=== PATIENT | male | born 1935 | race Caucasian/White ===

== ENCOUNTER → 2017-11-27 11:52 | Outpatient (CLI) | payer MEDICARE, MEDICAID, SELFPAY ==
[2017-11-28 09:36] LABS: PSA, Diagnostic 0.5 ng/ml (0-6.5)
== END ==
PROVIDERS: Visit Provider Nurse Practitioner
DX: C61 Malignant neoplasm of prostate (principal)
CPT/HCPCS: 36415; 84153

== ENCOUNTER 2018-02-09 12:03 | Emergency (ER) | payer MEDICARE, MEDICAID, SELFPAY ==
[2018-02-09 12:12] VITALS: BP 142/82; PULSE 71; RESP 16; TEMP 37.1; O2SAT 96
[2018-02-09 12:26] VITALS: RESP 18
--- NOTE | 2018-02-09 12:35 | ED.GENADUL_ITS ---
Discharge Plan Disposition Patient Disposition: HOME Discharge Details Chief Complaint: GenMedical Clinical Impression: Headache, Chest pain Primary Care Provider: Viki Hamilton ED Provider: Jamil Vyas Home Meds and New Rx's Prescriptions: Continue carbidopa-levodopa [Sinemet CR] 1 EACH tablet extended release 1 tab-cap PO TID Qty: 90 RF: 5 aspirin 325 MG tablet 325 mg PO DAILY Qty: 90 RF: 3 pravastatin 20 MG tablet 20 mg PO DAILY Qty: 90 RF: 3 multivitamin with minerals 1 EACH tablet 1 ea PO DAILY Qty: 90 RF: 3 omeprazole 20 MG capsule,delayed release(DR/EC) 20 mg PO DAILY RF: 0 acetaminophen [Mapap Extra Strength] 500 MG tablet 2 tab PO Q6H PRNRF: 0 cyanocobalamin (vitamin B-12) [Vitamin B-12] 1,000 MCG tablet 1,000 mcg PO DAILY RF: 0 cholecalciferol (vitamin D3) 2,000 UNIT tablet 1,000 units PO QID RF: 0 ropinirole 1 MG tablet 1 mg PO DAILY RF: 0 loperamide 2 MG capsule 1 cap PO DAILY RF: 0 cyclobenzaprine 10 MG tablet 10 mg PO HS RF: 0 quetiapine [Seroquel] 25 MG tablet 1 tab PO HS RF: 0 Discharge Instructions Instructions: General Headache (ED) Additional Instructions: Follow up with your primary care provider this week if you have severe worsening pain, difficulty breathing or persistent vomit return to the emergency department Discharge Data Discharge Physician: Jamil Vyas Medical Decision Making 82 yo male with hx of parkinson's, dementia, htn, comes in with an episode of chest pain and headache. He is not able to give the best history but apparently around 8am he complained he had a headache and chest pain. HE is not able to describe how it felt but lasted a minute and went away. He denies any pain now. No fevers, neck pain or stiffness, no menignismus. He has no symptoms now per the pt. Unclear what caused his brief episode of pain. 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 Do not feel imaging of head indicated at this time. His ecg iis nondiagnostic, will eval for possible nstemi though unlikely given how brief the episode was. Has normal vascular exam so doubt dissection and no tachycardia, hypoxia or evidence of dvt so doubt PE at this time pt's labs only show an elevated lipase which he has had in the past. He still has no headache, chest pain or abdominal pain and has absolutely no tenderness on exam, no n/v. Given lack of pain or other symptoms do not feel ct abd or other abd imaging indicated. I am going to have him f/u with his pcp this week and return precautions given Differential Diagnosis nstemi, pe, tension headache, cluster headache, muscle spasm ECG Data Attestation: I personally reviewed and interpreted this ECG (s) as follows: Prior ECG tracings: available for review Interpretation: sinus rhythm, pac's, rate of 75, normal pr, no acute st t wave changes HPI General Mode of arrival: wheelchair . Date/Time Provider Initiated Documentation: 02/09/18 12:06 . Limitations to Documentation: no limitations . Information obtained by: patient . History of Present Illness 82 year old M presents to the emergency department with the chief complaint of chest pain, described as mild and moderate, with intensity rated at 2. Patient reports no radiation. Patient started experiencing this hour(s) (5) No relieving factors improve symptom(s), No exacerbating factors reported . Patient notes other (headache). Patient did receive the following treatments prior to arrival, none Related Data Home Medications Medication Instructions Recorded Confirmed omeprazole 20 mg PO DAILY 03/01/13 02/09/18 acetaminophen [Mapap Extra 2 tab PO Q6H PRN 08/27/13 02/09/18 Strength] carbidopa-levodopa [Sinemet CR] 1 tab-cap PO TID #90 tab-cap 10/08/13 02/09/18 cholecalciferol (vitamin D3) 1,000 units PO QID 10/15/13 02/09/18 cyanocobalamin (vitamin B-12) 1,000 mcg PO DAILY 10/15/13 02/09/18 [Vitamin B-12] aspirin 325 mg PO DAILY #90 tab-cap 02/10/15 02/09/18 multivitamin with minerals 1 ea PO DAILY #90 tab 11/23/15 pravastatin 20 mg PO DAILY #90 tab-cap 11/23/15 02/09/18 cyclobenzaprine 10 mg PO HS 06/29/17 02/09/18 loperamide 1 cap PO DAILY 06/29/17 02/09/18 ropinirole 1 mg PO DAILY 06/29/17 02/09/18 quetiapine [Seroquel] 1 tab PO HS 11/06/17 02/09/18 Allergies Allergy/AdvReac Type Severity Reaction Status Date / Time Sulfa (Sulfonamide AdvReac Mild GI/diarrhea Verified 11/06/17 06:17 Antibiotics) General Stated Complaint: GenMedical BANDAR: 3 Review of Systems Review of Systems All systems reviewed & are unremarkable except as noted in HPI and below Constitutional Denies chills, Denies fever(s) and Denies weakness Eyes Denies loss of vision ENT Denies change in voice Cardiovascular Denies dyspnea Respiratory Denies dyspnea Gastrointestinal Denies abdominal pain, Denies nausea and Denies vomiting Genitourinary Denies dysuria Musculoskeletal Denies joint swelling Integumentary/Breasts Denies rash Neurologic Denies loss of vision and Denies weakness Psychiatric Denies depression Endocrine Denies cold intolerance and Denies heat intolerance Allergic/Immunologic Denies urticaria PFSH Social History Smoking/Tobacco Use Status: Former Tobacco Use Exam Const General: no acute distress Orientation: alert HENMT Head: normal to inspection Ears: external ears normal General nose exam: external nose normal Mouth: moist mucous membranes Eyes General: appearance normal, both eyes and all related structures Neck Neck: normal visual inspection Resp Effort & Inspection: normal respiratory effort and able to speak in complete sentences Cardio Rate: regular rate Skin General skin exam: no rashes or lesions noted Neuro General: alert and oriented Patient Orientation: Person and Place Extrem General: normal to inspection Psych Mental Status: mental status grossly normal Course Vital Signs Temperature 37.1 C 02/09/18 12:12 Pulse 71 02/09/18 12:12 Respiratory Rate 16 02/09/18 12:12 Blood Pressure 142/82 H 02/09/18 12:12 Pulse Oximetry 96 02/09/18 12:12 Temperature 37.1 C 02/09/18 12:12 Temperature Source Skin 02/09/18 12:12 Pulse 71 02/09/18 12:12 Respiratory Rate 18 02/09/18 12:26 Respiratory Effort Non-Labored 02/09/18 12:26 Respiratory Depth Normal 02/09/18 12:26 Respiratory Pattern Normal 02/09/18 12:26 Blood Pressure 142/82 H 02/09/18 12:12 Pulse Oximetry 96 02/09/18 12:12 Pain Level 10 02/09/18 12:12
[2018-02-09 12:39] LABS: Abs Immature Grans 0.01 k/cumm (0.0-0.09); Absolute Basophil Count 0.02 k/cumm (0.0-0.2); Absolute Eosinophil Count 0.09 k/cumm (0.0-0.7); Absolute Lymphocyte Count 1.36 k/cumm (1.2-3.4); Absolute Monocyte Count 0.41 k/cumm (0.11-0.7); Absolute Neutrophil Count 3.52 k/cumm (1.2-6.7); Basophils % 0.4; Eosinophils % 1.7; HCT 42.5 % (40.0-50.0); HGB 14.2 g/dL (13.5-17.5); Immature Grans % 0.2; Lymphocytes % 25.1; Mean Corp. HGB Concentration 33.4 g/dL (32.0-36.0); Mean Corpuscular Hemoglobin 31.6 pg (27.0-33.0); Mean Corpuscular Volume 94.4 fL (80-95); Mean Platelet Volume 9.6 fL (8.0-11.0); Monocytes % 7.6; Platelet Count 267 x1000/uL (130-400); RBC Distribution Width 13.3 % (11.8-14.1); White Blood Cell Count 5.41 k/cumm (4.4-10.8)
[2018-02-09 12:47] LABS: PTT Activated 22.4 sec (21.0-31.4); Prothrombin Time 9.9 sec (9.3-10.8)
[2018-02-09 12:50] LABS: ALT 19 U/L (12-78); AST 11 U/L (15-37); Albumin 3.3 g/dL (3.4-5.0); Alkaline Phosphatase 103 U/L (46-116); Anion Gap 6.8 mmol/L (3-11); BUN 17 mg/dL (7-18); Bilirubin, Direct 0.09 mg/dL (0.00-0.20); Bilirubin, Total 0.4 mg/dL (0.2-1.0); CO2 29.2 mmol/L (21.0-32.0); Calcium 8.5 mg/dL (8.5-10.1); Chloride 107 mmol/L (98-107); Glucose 100 mg/dL (70-100); Lipase 979 U/L (73-393); Magnesium 1.8 mg/dL (1.8-2.4); Potassium 4.2 mmol/L (3.5-5.1); Sodium 143 mmol/L (136-145); Total Protein 6.3 g/dL (6.4-8.2)
[2018-02-09 12:52] LABS: Troponin I < 0.02 ng/mL (0.00-0.06)
[2018-02-09 13:15] VITALS: BP 134/76; PULSE 66; RESP 17; TEMP 36.7; O2SAT 97
--- NOTE | 2018-02-11 08:30 | CMPROGNOTE_ITS ---
Care Management Progress Note 02/11-Dr. Vyas requested assistance with a PCP ([facility]) f/u this week for headache, chest pain, and med management. Referral faxed to [facility] this am.
== END 2018-02-09 13:27 | disposition home or self-care (01) ==
PROVIDERS: Emergency Provider Emergency Medicine
DX: R07.9 Chest pain, unspecified (principal); R51 Headache; G20 Parkinson's disease; I10 Essential (primary) hypertension
CPT/HCPCS: 36415; 80053; 80076; 83690; 93005; 99284; 83735; 84484; 85025; 85610; 85730; 93010

== ENCOUNTER 2018-04-19 12:50 | Emergency (ER) | payer MEDICARE, MEDICAID, SELFPAY ==
[2018-04-19] VITALS (22 sets, daily range): BP systolic 139–182; BP diastolic 73–168; PULSE 48–130; RESP 11–25; TEMP 36.6–36.8; O2SAT 81–97
--- NOTE | 2018-04-19 12:44 | DI.CT_ITS ---
SYMPTOM/DIAGNOSIS: HEADACHE, WEAKNESS NONCONTRAST HEAD CT: A noncontrast enhanced examination was performed. There is no evidence of an intra/extra-axial hemorrhage. Atrophic changes consistent with age are demonstrated. There are regions of diminished absorption in the frontoparietal white matter bilaterally and small areas of diminished absorption are noted in the basal ganglia, likely representing old lacunes. There is no evidence of an intra or extra-axial hemorrhage or mass or fluid collection or edema and nothing to suggest a territorial infarct. There is no evidence of a fracture. There is no evidence of sinus pathology and the mastoid air cells are normal. SUMMARY: Age appropriate atrophic changes are noted. 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 There is no evidence of an acute superimposed intracranial process. CTA NECK AND BRAIN: The study was carried out according to the usual protocol with an intravenous administration of 100 cc's of Omnipaque 350. There is good opacification of the vasculature in the neck. There is evidence of plaque formation involving the proximal portion of the right internal carotid artery and in the bulb at the takeoff of the left internal carotid artery. There is no evidence of a significant right or left carotid stenosis. Note is made of tortuosity of the internal carotid artery bilaterally. The [place] of [place] appears intact. Also the intracranial portion of the internal carotid artery bilaterally appears to be well maintained. There is no demonstrated aneurysm or evidence of significant stenosis. The vertebral arteries as visualized also appear normal. There are degenerative changes involving the cervical spine with multi level degenerative disc disease and prominent posterior spurring, particularly at the C 5-6 and C 6-7 levels where there is apparent bilateral bony foraminal stenosis. The findings are most advanced at C 5-6. The vertebral bodies are intact with no evidence of a fracture. The posterior elements are intact. There is no evidence of central spinal canal stenosis. Degenerative changes are identified at the articulation between the odontoid and the anterior ring of C 1. No odontoid fracture is evident. The soft tissues are unremarkable. Incidently the patient is edentulous. SUMMARY: There is no definite vascular abnormality involving the vasculature in the neck and the visualized vascular structures within the brain appear unremarkable as noted above. Degenerative changes involving the spine in this patient are outlined in the body of the report and there is as noted, bilateral foraminal stenosis at C 5-6 and C 6-7. If clinically appropriate, further assessment with an MRI could be considered. Incidently this patient is edentulous.
[2018-04-19] MEDS: Omnipaque 350 MG/ML 100 ML BTL IJ (12:56)
--- NOTE | 2018-04-19 13:14 | W.ED.GENAD ---
Discharge Plan Disposition Patient Disposition: HOME Condition: Good Discharge Details Chief Complaint: CVA/TIA Clinical Impression: Headache, Hypocalcemia Reason For Visit: ARMANDO Primary Care Provider: Viki Hamilton ED Provider: Antwon Rollins Home Meds and New Rx's Prescriptions: New calcium carbonate [Calcium 500] 500 mg calcium (1,250 mg) tablet 500 mg PO BID Qty: 30 RF: 0 No Action carbidopa-levodopa [Sinemet CR] 1 EACH tablet extended release 1 tab-cap PO TID Qty: 90 RF: 5 aspirin 325 MG tablet 325 mg PO DAILY Qty: 90 RF: 3 pravastatin 20 MG tablet 20 mg PO DAILY Qty: 90 RF: 3 multivitamin with minerals 1 EACH tablet 1 ea PO DAILY Qty: 90 RF: 3 omeprazole 20 MG capsule,delayed release(DR/EC) 20 mg PO DAILY RF: 0 cyanocobalamin (vitamin B-12) [Vitamin B-12] 1,000 MCG tablet 1,000 mcg PO DAILY RF: 0 cholecalciferol (vitamin D3) 2,000 UNIT tablet 1,000 units PO QID RF: 0 ropinirole 1 MG tablet 1 mg PO DAILY RF: 0 quetiapine [Seroquel] 25 MG tablet 1 tab PO HS RF: 0 Discharge Instructions Instructions: General Headache (ED), Hypocalcemia (ED) Additional Instructions: Please take the medication as directed. Please follow-up with your neurologist as soon as possible for reassessment. If you notice any worsening of your symptoms, or any new symptoms such as vomiting, diarrhea, fever, chills, shortness of breath, chest pain, numbness, weakness, or fainting , please return immediately to the emergency department for reevaluation. Please follow up with your primary care provider as soon as possible for reassessment and reevaluation. As always, it was a pleasure participating in your medical care today. Referrals: Viki Hamilton MD [Primary Care Provider] - Medical Decision Making This is a 82-year-old male who presents for evaluation of headache. Patient is a poor historian, but per EMS, the patient, and family who was initially at the patient's home they state that for the last 4 days he has had a mild headache, seems to come and go and is sharp in nature. When it does come on it is severe and stabbing. EMS was contacted today because of the severity of the headache. Upon their arrival he had no headache, no complaints however he did have a few episodes of very brief return onset of the headache. He has no associated deficits of numbness, tingling, weakness, cranial nerve deficits, or other abnormalities. NIH stroke scale is 0. Here in the ED the patient goes from episodes of being asymptomatic to very brief episodes of grabbing his head and pain. These episodes last just a few seconds and then resolved. I cannot appreciate any neurologic deficits on my exam during these episodes. Because of the concern for an intracranial aneurysm versus stroke we did get a CT scan of the head and neck. We are pending results. He has no chest pain or shortness of breath. EKG is benign. We will get a basic laboratory workup and treat his headache pain. 2:[address] scan per radiologist demonstrates no acute process for the CTA and the noncontrast CT scan. He does have some chronic degenerative changes but no other acute process. Patient's laboratory workup does demonstrate evidence of notably low calcium, this will be corrected here. The patient's headache has resolved after rehydration. I do feel that the patient's headache may be related to his low calcium or otherwise idiopathic. With no evidence of meningitis on clinical exam, no evidence of significant trauma, no other significant abnormalities, I do feel that he can be safely discharged home with his reassuring labs, vital signs and imaging results. He does have outpatient neurology follow-up in [place] next month. I have encouraged family to follow-up with this. We discussed red flags which to return the patient family understand. I have extensively reviewed the treatment plan and discharge instructions with the patient and their family. I have addressed all patient concerns at this time. The patient and family was made aware of what symptoms to monitor for that would warrant a return to the emergency department. Discussed the plan with the patient and family, they demonstrate verbal understanding and agreement with our assessment and plan at this time. EKG 13: 17 Rate 67, sinus rhythm with frequent PACs, intervals normal, no ST elevations or depressions, no T wave inversions except for in lead III. No Q waves HPI General Date/Time Provider Initiated Documentation: 04/19/18 13:02. HPI Narrative: This is an 82-year-old male with past medical history of Parkinson's disease, tremors, and reflux who presents today for evaluation of headache. EMS was contacted with complaint of headache. Patient is slightly confused and a poor historian but he and EMS stated patient's headache began 4 days ago. Is continued, then was relatively severe today with intermittent episodes. There was no other associated pain of neck pain chest pain or shoulder pain. He had no vision changes, he denies tinnitus. He denies any trauma or fall. He does admit to a small mass on the back of his neck which is chronic. Patient denies any associated numbness tingling or weakness. No other modifying factors. No other complaints. Headache is sharp and stabbing in nature. It is encompassing the entirety of his head. He denies any neck pain or neck stiffness or fever or chills. Related Data Home Medications Medication Instructions Recorded Confirmed omeprazole 20 mg PO DAILY 03/01/13 04/19/18 carbidopa-levodopa [Sinemet CR] 1 tab-cap PO TID #90 tab-cap 10/08/13 04/19/18 cholecalciferol (vitamin D3) 1,000 units PO QID 10/15/13 04/19/18 cyanocobalamin (vitamin B-12) 1,000 mcg PO DAILY 10/15/13 04/19/18 [Vitamin B-12] aspirin 325 mg PO DAILY #90 tab-cap 02/10/15 04/19/18 multivitamin with minerals 1 ea PO DAILY #90 tab 11/23/15 04/19/18 pravastatin 20 mg PO DAILY #90 tab-cap 11/23/15 04/19/18 ropinirole 1 mg PO DAILY 06/29/17 04/19/18 quetiapine [Seroquel] 1 tab PO HS 11/06/17 04/19/18 calcium carbonate [Calcium 500] 500 mg PO BID #30 tab 04/19/18 Previous Rx's Medication Instructions Recorded calcium carbonate [Calcium 500] 500 mg PO BID #30 tab 04/19/18 Allergies Allergy/AdvReac Type Severity Reaction Status Date / Time Sulfa (Sulfonamide AdvReac Mild GI/diarrhea Verified 11/06/17 06:17 Antibiotics) General BANDAR: 3 Review of Systems Review of Systems All systems reviewed & are unremarkable except as noted in HPI and below PFSH Social History Smoking/Tobacco Use Status: Former Tobacco Use Exam Narrative Exam Narrative: 1.Const: Well-nourished, Well-developed, appearing stated age 2.Eyes: PERRL, no conjunctival injection, and symmetrical lids. 3.ENT: Atraumatic external nose and ears. Moist MM. Neck: Symmetric, trachea midline, No thyromegaly. Patient demonstrates good movement of cervical neck. There is no nuchal rigidity, no nuchal tenderness. Patient is able to flex the neck without any difficulty or significant pain. Negative Kernig's and Brudzinski sign. 4.CVS: +S1/S2, No murmurs or gallops. Peripheral pulses 2+ and equal in all extremities. Brisk capillary refill in all extremities. 5.RESP: Unlabored respiratory effort. Clear to auscultation bilaterally. No wheezes rales or rhonchi 6.GI: Soft, Nontender/Nondistended, No hepatosplenomegaly. No guarding or rebound. 7.MSK: Normocephalic/Atraumatic, Extremities w/o deformity or ttp No cyanosis or clubbing, Normal movement of all extremities 8.Skin: Warm, Dry. No rashes or lesions. Patient does have a small lump of the lesion on the back of his neck which feels like a lipoma on my exam 9.Neuro: personalized living manager nurse II-XII grossly intact. Sensation grossly intact, no focal neurologic deficits. CN 2-12 tested and intact, patient is able to hold bilateral arms up for 5 seconds and there is no pronator drift, patient also holds legs up for 10 seconds bilaterally without any drop, sensation intact to light touch in hands and feet bilaterally. Cerebellar exam normal as tested by [id number], fine finger movements however exam is slightly more difficult due to the patient's chronic Parkinson's and tremor. Visual abdi intact peripherally. Normal speech pattern and verbal understanding. NIH stroke score of 0 10.Psych: (AAO) x3. Appropriate mood and affect
[2018-04-19 13:29] LABS: Absolute Basophil Count 0.01 k/cumm (0.0-0.2); Absolute Eosinophil Count 0.07 k/cumm (0.0-0.7); Absolute Lymphocyte Count 1.08 k/cumm (1.2-3.4); Absolute Monocyte Count 0.34 k/cumm (0.11-0.7); Absolute Neutrophil Count 2.49 k/cumm (1.2-6.7); Basophils % 0.3; Eosinophils % 1.8; HCT 38.6 % (40.0-50.0); Lymphocytes % 27.1; Mean Corp. HGB Concentration 33.7 g/dL (32.0-36.0); Mean Corpuscular Hemoglobin 32.1 pg (27.0-33.0); Mean Corpuscular Volume 95.3 fL (80-95); Mean Platelet Volume 9.4 fL (8.0-11.0); Monocytes % 8.5; Neutrophils % 62.3; Platelet Count 214 x1000/uL (130-400); RBC 4.05 m/cumm (4.50-6.00); RBC Distribution Width 13.3 % (11.8-14.1); White Blood Cell Count 3.99 k/cumm (4.4-10.8)
[2018-04-19] MEDS: Prochlorperazine 10 MG/2 ML VIAL IVP (13:31)
[2018-04-19] MEDS: Acetaminophen 500 MG TAB 1000 MG PO (13:31)
[2018-04-19] MEDS: Normal Saline 500 ML 1000 ML IV (13:32)
[2018-04-19 13:48] LABS: ALT 15 U/L (12-78); AST 10 U/L (15-37); Albumin 2.1 g/dL (3.4-5.0); Alkaline Phosphatase 76 U/L (46-116); Anion Gap 4.3 mmol/L (3-11); BUN 18 mg/dL (7-18); Bilirubin, Total 0.4 mg/dL (0.2-1.0); CO2 29.7 mmol/L (21.0-32.0); CREATININE 0.96 mg/dL (0.70-1.30); Calcium 7.8 mg/dL (8.5-10.1); Chloride 106 mmol/L (98-107); Glucose 86 mg/dL (70-100); Potassium 3.9 mmol/L (3.5-5.1); Sodium 140 mmol/L (136-145); Total Protein 5.4 g/dL (6.4-8.2)
[2018-04-19] MEDS: Calcium Gluconate 4.65 MEQ/10 ML VIAL 4.65 MG IVP (14:25)
== END 2018-04-19 14:57 | disposition home or self-care (01) ==
PROVIDERS: Emergency Provider Student in an Organized Health Care Education/Training Program
DX: R51 Headache (principal); E83.51 Hypocalcemia; G20 Parkinson's disease
CPT/HCPCS: 36415; 70496; 70498; 80053; 93005; 96360; 96374; 96375; 99285; 70450; 85025; 93010; 99284; J0610; J0780; J3490

== ENCOUNTER 2018-04-26 18:01 | Outpatient (REF) | payer MEDICARE, MEDICAID, SELFPAY ==
[2018-04-26 21:03] LABS: ALT 9 U/L (12-78); AST 12 U/L (15-37); Albumin 3.6 g/dL (3.4-5.0); Alkaline Phosphatase 104 U/L (46-116); BUN 21 mg/dL (7-18); Bilirubin, Direct 0.13 mg/dL (0.00-0.20); Bilirubin, Total 0.4 mg/dL (0.2-1.0); CREATININE 1.23 mg/dL (0.70-1.30); Calcium 8.9 mg/dL (8.5-10.1); Chloride 106 mmol/L (98-107); Estimated GFR 56.62 (mL/min/1.73m2); Glucose 130 mg/dL (70-100); Magnesium 1.9 mg/dL (1.8-2.4); Potassium 4.1 mmol/L (3.5-5.1); Sodium 143 mmol/L (136-145); Total Protein 6.4 g/dL (6.4-8.2)
[2018-04-29 12:53] LABS: Parathyroid Hormone,Intact 46 pg/ml (19-88)
== END 2018-04-26 18:21 ==
LOC: NCHCN 18:01
PROVIDERS: Visit Provider Family Medicine
DX: E83.51 Hypocalcemia (principal)
CPT/HCPCS: 80048; 80076; 83735; 83970

== ENCOUNTER 2018-04-30 03:29 | Emergency (ER) | payer MEDICARE, MEDICAID, SELFPAY ==
[2018-04-30 03:34] VITALS: BP 138/77; PULSE 65; RESP 20; TEMP 36.6; O2SAT 96
--- NOTE | 2018-04-30 03:51 | W.ED.GENAD ---
Discharge Plan Disposition Patient Disposition: HOME Condition: Stable Discharge Details Chief Complaint: Headache Clinical Impression: Headache Primary Care Provider: Viki Hamilton ED Provider: Jamil Vyas Home Meds and New Rx's Prescriptions: Continued carbidopa-levodopa [Sinemet CR] 1 EACH tablet extended release 1 tab-cap PO BID Qty: 90 RF: 5 ropinirole 1 MG tablet 1 mg PO DAILY RF: 0 quetiapine [Seroquel] 25 MG tablet 1 tab PO HS RF: 0 calcium carbonate [Calcium 500] 500 mg calcium (1,250 mg) tablet 500 mg PO BID Qty: 30 RF: 0 Discharge Instructions Instructions: General Headache (ED) Additional Instructions: you can take 1000mg tylenol every 6 hours for pain. you can also take 600mg ibuprofen every 6 hours if needed but try not to take this everyday if you have fevers, vision changes or persistent vomit return to the emergency department follow up with your primary care provider in 1-2 weeks, I have placed you on our follow up list to try and make sure you get an appointment Medical Decision Making 82 yo male with hx of parkinson's, dementia, who comes in with cc of headaches. he has had intermittent frontal headches per him and for weeks. No fevers, vomit, chills. He was seen on 04/[address] and cta showing no acute findings. He denies fall. He has NIH of 0 on my exam. Has no meningismus. Do not feel LP to evaluate for meninigits or other energy auditor infection indicated. Pain is not thunderclpa in etiology and not worse of his life and had negative ct and cta over a week ago so doubt sah or other ich and do not feel repeat imaging indicated. Has no temporal artery tenderness to suggest temproal arteritis. No vision changes and no pain in eye and neither eye has palpable hardness so doubt glaucoma. I suspect tension headache, though both sinemet and seroquel can cause the pain. His calcium was low on 7.8 but on 04/26 was normal so do not feel repeat testing for this is indicated. Will have him f/u with pcp and take tylenol as needed. No other members in the house have similar symptoms so doubt carbon monoxide. Differential Diagnosis tension headache, cluster hedaches, sdh HPI General Mode of arrival: wheelchair. Date/Time Provider Initiated Documentation: 04/30/18 03:43. Information obtained by: patient and family. History of Present Illness 82 year old M presents to the emergency department with the chief complaint of headaches, described as moderate, with intensity rated at 5. Quality is described as aching, and is localized to the head. Patient reports no radiation. Patient started experiencing this hour(s) (1) and it has been now resolved. No relieving factors improve symptom(s), No exacerbating factors reported . Patient notes no other symptoms.. Patient did receive the following treatments prior to arrival, none Related Data Home Medications Medication Instructions Recorded Confirmed carbidopa-levodopa [Sinemet CR] 1 tab-cap PO BID #90 tab-cap 10/08/13 04/30/18 ropinirole 1 mg PO DAILY 06/29/17 04/30/18 quetiapine [Seroquel] 1 tab PO HS 11/06/17 04/30/18 calcium carbonate [Calcium 500] 500 mg PO BID #30 tab 04/19/18 04/30/18 Previous Rx's Medication Instructions Recorded calcium carbonate [Calcium 500] 500 mg PO BID #30 tab 04/19/18 Allergies Allergy/AdvReac Type Severity Reaction Status Date / Time Sulfa (Sulfonamide AdvReac Mild GI/diarrhea Verified 04/30/18 03:39 Antibiotics) General Stated Complaint: Headache BANDAR: 3 Review of Systems Review of Systems All systems reviewed & are unremarkable except as noted in HPI and below Constitutional Denies chills, Denies fever(s) and Denies weakness ENT Denies change in voice Cardiovascular Denies chest pain and Denies dyspnea Respiratory Denies dyspnea Gastrointestinal Denies abdominal pain, Denies nausea and Denies vomiting Genitourinary Denies dysuria Musculoskeletal Denies joint swelling Neurologic Denies weakness Psychiatric Denies depression [facility] Social History Smoking/Tobacco Use Status: Former Tobacco Use Exam Const General: no acute distress Orientation: alert HENOR Head: normal to inspection Ears: external ears normal General nose exam: external nose normal Mouth: moist mucous membranes Eyes General: appearance normal, both eyes and all related structures Neck Neck: normal visual inspection Resp Effort & Inspection: normal respiratory effort and able to speak in complete sentences Cardio Rate: regular rate Skin General skin exam: no rashes or lesions noted Neuro General: alert and oriented x3 Extrem General: normal to inspection Psych Mental Status: mental status grossly normal Course Vital Signs Temperature 36.6 C 04/30/18 03:34 Pulse 65 04/30/18 03:34 Respiratory Rate 20 04/30/18 03:34 Blood Pressure 138/77 04/30/18 03:34 Pulse Oximetry 96 04/30/18 03:34 Temperature 36.6 C 04/30/18 03:34 Temperature Source Temporal Artery Scan 04/30/18 03:34 Pulse 65 04/30/18 03:34 Respiratory Rate 20 04/30/18 03:34 Respiratory Effort Non-Labored 04/30/18 03:34 Blood Pressure 138/77 04/30/18 03:34 Blood Pressure Position Sitting 04/30/18 03:34 Pulse Oximetry 96 04/30/18 03:34 Oxygen Delivery Method Room Air 04/30/18 03:34 Oxygen Flow Rate 0 04/30/18 03:34 Pain Level 8 04/30/18 03:40
--- NOTE | 2018-04-30 03:56 | ED.GENADUL_ITS ---
Discharge Plan Disposition Patient Disposition: HOME Condition: Stable Discharge Details Chief Complaint: Headache Clinical Impression: Headache Primary Care Provider: Viki Hamilton ED Provider: Jamil Vyas Home Meds and New Rx's Prescriptions: Continued carbidopa-levodopa [Sinemet CR] 1 EACH tablet extended release 1 tab-cap PO BID Qty: 90 RF: 5 ropinirole 1 MG tablet 1 mg PO DAILY RF: 0 quetiapine [Seroquel] 25 MG tablet 1 tab PO HS RF: 0 calcium carbonate [Calcium 500] 500 mg calcium (1,250 mg) tablet 500 mg PO BID Qty: 30 RF: 0 Discharge Instructions Instructions: General Headache (ED) Additional Instructions: you can take 1000mg tylenol every 6 hours for pain. you can also take 600mg ibuprofen every 6 hours if needed but try not to take this everyday if you have fevers, vision changes or persistent vomit return to the emergency department follow up with your primary care provider in 1-2 weeks, I have placed you on our follow up list to try and make sure you get an appointment Medical Decision Making 82 yo male with hx of parkinson's, dementia, who comes in with cc of headaches. he has had intermittent frontal headches per him and for weeks. No fevers, vomit, chills. He was seen on 04/[address] and cta showing no acute findings. He denies fall. He has NIH of 0 on my exam. Has no meningismus. Do not feel LP to evaluate for meninigits or other gang investigator infection indicated. Pain is not thunderclpa in etiology and not worse of his life and had negative ct and cta over a week ago so doubt sah or other ich and do not feel repeat imaging indicated. Has no temporal artery tenderness to suggest temproal arteritis. No vision changes and no pain in eye and neither eye has palpable hardness so doubt glaucoma. I suspect tension headache, though both sinemet and seroquel can cause the pain. His calcium was low on 7.8 but on 04/26 was normal so do not feel repeat testing for this is indicated. Will have him f/u with pcp and take tylenol as needed. No other members in the house have similar symptoms so doubt carbon monoxide. Differential Diagnosis tension headache, cluster hedaches, sdh HPI General Mode of arrival: wheelchair . Date/Time Provider Initiated Documentation: 04/30/18 03:43 . Information obtained by: patient and family . History of Present Illness 82 year old M presents to the emergency department with the chief complaint of headaches, described as moderate, with intensity rated at 5. Quality is described as aching, and is localized to the head. Patient reports no radiation. Patient started experiencing this hour(s) (1) and it has been now resolved. No relieving factors improve symptom(s), No exacerbating factors reported . Patient notes no other symptoms.. Patient did receive the following treatments prior to arrival, none Related Data Home Medications Medication Instructions Recorded Confirmed carbidopa-levodopa [Sinemet CR] 1 tab-cap PO BID #90 tab-cap 10/08/13 04/30/18 ropinirole 1 mg PO DAILY 06/29/17 04/30/18 quetiapine [Seroquel] 1 tab PO HS 11/06/17 04/30/18 calcium carbonate [Calcium 500] 500 mg PO BID #30 tab 04/19/18 04/30/18 Previous Rx's Medication Instructions Recorded calcium carbonate [Calcium 500] 500 mg PO BID #30 tab 04/19/18 Allergies Allergy/AdvReac Type Severity Reaction Status Date / Time Sulfa (Sulfonamide AdvReac Mild GI/diarrhea Verified 04/30/18 03:39 Antibiotics) General Stated Complaint: Headache BANDAR: 3 Review of Systems Review of Systems All systems reviewed & are unremarkable except as noted in HPI and below Constitutional Denies chills, Denies fever(s) and Denies weakness ENT Denies change in voice Cardiovascular Denies chest pain and Denies dyspnea Respiratory Denies dyspnea Gastrointestinal Denies abdominal pain, Denies nausea and Denies vomiting Genitourinary Denies dysuria Musculoskeletal Denies joint swelling Neurologic Denies weakness Psychiatric Denies depression [facility] Social History Smoking/Tobacco Use Status: Former Tobacco Use Exam Const General: no acute distress Orientation: alert HENWV Head: normal to inspection Ears: external ears normal General nose exam: external nose normal Mouth: moist mucous membranes Eyes General: appearance normal, both eyes and all related structures Neck Neck: normal visual inspection Resp Effort & Inspection: normal respiratory effort and able to speak in complete sentences Cardio Rate: regular rate Skin General skin exam: no rashes or lesions noted Neuro General: alert and oriented x3 Extrem General: normal to inspection Psych Mental Status: mental status grossly normal Course Vital Signs Temperature 36.6 C 04/30/18 03:34 Pulse 65 04/30/18 03:34 Respiratory Rate 20 04/30/18 03:34 Blood Pressure 138/77 04/30/18 03:34 Pulse Oximetry 96 04/30/18 03:34 Temperature 36.6 C 04/30/18 03:34 Temperature Source Temporal Artery Scan 04/30/18 03:34 Pulse 65 04/30/18 03:34 Respiratory Rate 20 04/30/18 03:34 Respiratory Effort Non-Labored 04/30/18 03:34 Blood Pressure 138/77 04/30/18 03:34 Blood Pressure Position Sitting 04/30/18 03:34 Pulse Oximetry 96 04/30/18 03:34 Oxygen Delivery Method Room Air 04/30/18 03:34 Oxygen Flow Rate 0 04/30/18 03:34 Pain Level 8 04/30/18 03:40
[2018-04-30] MEDS: Ibuprofen 600 MG TAB PO (04:08)
[2018-04-30 04:10] VITALS: BP 138/77; PULSE 65; RESP 20; TEMP 36.6; O2SAT 96
--- NOTE | 2018-04-30 08:10 | PDOC.ERCMPRO ---
Care Management Progress Note 04/30-Dr. Vyas requested assistance with a PCP (Dr. Hamilton) f/u in 1-2 weeks for headaches and medication management. Referral faxed to [facility] this am.
== END 2018-04-30 04:15 | disposition home or self-care (01) ==
LOC: ER 04:20
PROVIDERS: Emergency Provider Emergency Medicine
DX: R51 Headache (principal); G20 Parkinson's disease; F03.90 Unspecified dementia, unspecified severity, without behavioral disturbance, psychotic disturbance, mood disturbance, and anxiety
CPT/HCPCS: 99282

== ENCOUNTER 2018-07-15 13:48 | Emergency (ER) | payer MEDICARE, MEDICAID, SELFPAY ==
[2018-07-15] VITALS (10 sets, daily range): BP systolic 119–189; BP diastolic 92–172; PULSE 82–127; RESP 11–25; TEMP 36.6; O2SAT 95–100
--- NOTE | 2018-07-15 13:52 | DI.RAD_ITS ---
SYMPTOMS/DIAGNOSIS: ALTERED MENTAL STATUS AP AND LATERAL CHEST: Comparison is made with October,. The heart size is within normal limits for projection. The aorta is tortuous. The lungs are not well inflated on the AP view. No infiltrate, effusion or pulmonary edema is seen. Postsurgical changes are noted in the right shoulder. IMPRESSION: Limited exam. No acute abnormality.
--- NOTE | 2018-07-15 13:52 | DI.CT_ITS ---
SYMPTOMS/DIAGNOSIS: ALTERED MENTAL STATUS NONCONTRAST HEAD CT: Comparison is made with March,. No intracranial hemorrhage, mass or acute infarct is seen. Atrophy and white matter changes of small vessel disease are stable. There is no evidence of skull fracture or sinus opacification. IMPRESSION: No acute abnormality.
--- NOTE | 2018-07-15 14:04 | W.ED.GENAD ---
Discharge Plan Disposition Patient Disposition: HOME Condition: Stable Discharge Details Chief Complaint: AMS/LOC Clinical Impression: Generalized weakness Primary Care Provider: Viki Hamilton ED Provider: Margareth Bird Home Meds and New Rx's Prescriptions: Continued carbidopa-levodopa [Sinemet CR] 1 EACH tablet extended release 1 tab-cap PO BID Qty: 90 RF: 5 ropinirole 1 MG tablet 1 mg PO DAILY RF: 0 quetiapine [Seroquel] 25 MG tablet 1 tab PO HS RF: 0 calcium carbonate [Calcium 500] 500 mg calcium (1,250 mg) tablet 500 mg PO BID Qty: 30 RF: 0 Discharge Instructions Instructions: Weakness (ED) Additional Instructions: Please return immediately to the emergency department if you develop any new or worsening symptoms or if you become otherwise concerned. It is extremely important that you make an appointment to be seen as soon as possible by your primary care doctor in follow-up for this visit. Referrals: Viki Hamilton MD [Primary Care Provider] - Discharge Data Discharge Date/Time-TO BE ENTERED AT DEPARTURE: 07/15/18 16:21 Medical Decision Making Rodolfo Hylton is an 82 y/o man with history of Parkinson's disease, GERD, seizure disorder who presented to the emergency department with episode of staring straight ahead and not interacting, now resolved. On exam patient is well and nontoxic appearing. He has garbled speech and otherwise benign neurologic exam. Concern for possible seizure versus other, doubt TIA. Exam/history is not consistent with sepsis, meningitis, ACS, acute emergent aortic pathology. Plan for CT head, EKG, screening labs. Will monitor and reassess. Patient's son and arrived in the emergency department after initial evaluation, and they describe different scenarios been was present by EMS. Patient son reports that patient seem to have generalized weakness today, which is why EMS was called. He reports that patient seems to be having trouble keeping himself sitting upright in his wheelchair today, despite being alert. He also seemed to have trouble with standing to pivot out of his wheelchair on the couch, which is atypical for him. Patient's son reports that he seems at baseline at this point. Patient son denies any earlier appearance of focal weakness. Patient demanding to go home. He states that there is nothing wrong with him and he feels fine. Patient's son is amenable to taking him home at this time. Doubt TIA since description of generalized weakness without focality. Unclear etiology of earlier symptoms. CT head negative. Labs nondiagnostic with equivocal UA, will hold abx pending cx. A lengthy discussion with the patient and his son regarding return to emergency department precautions, home care, and importance of outpatient follow-up. Patient was discharged home with clear plan for outpatient follow-up. Patient is son verbalized understanding the plan was amenable. All questions were answered. Patient was able to pivot from stretcher to his wheelchair without issue at time of discharge. Medical Records Medical records reviewed: Yes I reviewed the patient's medical records. Imaging Data Radiologic Study: Attestation: I personally reviewed and interpreted this imaging study as follows: Radiologist's impression: NONCONTRAST HEAD CT: Comparison is made with March,. No intracranial hemorrhage, mass or acute infarct is seen. Atrophy and white matter changes of small vessel disease are stable. There is no evidence of skull fracture or sinus opacification. IMPRESSION: No acute abnormality. Lab Data Lab results reviewed: Yes I reviewed the patient's lab results. 07/15/18 14:35 Urine - Reflex from Ua Urine Culture - Preliminary Laboratory Tests Range/Units 07/15/18 07/15/18 07/15/18 14:00 14:00 14:35 WBC (4.4-10.8) k/cumm 6.93 RBC (4.50-6.00) m/cumm 4.43 L Hgb (13.5-17.5) g/dL 14.1 Hct (40.0-50.0) % 41.6 MCV (80-95) fL 93.9 MCH (27.0-33.0) pg 31.8 MCHC (32.0-36.0) g/dL 33.9 RDW (11.8-14.1) % 13.3 Plt Count (130-400) x1000/uL 242 MPV (8.0-11.0) fL 9.5 Immature Gran % 0.0 Neutrophils % 83.8 Lymphocytes % 8.8 Monocytes % 5.9 Eosinophils % 1.4 Basophils % 0.1 Absolute Neutrophils (1.2-6.7) k/cumm 5.80 Absolute Lymphocytes (1.2-3.4) k/cumm 0.61 L Absolute Monocytes (0.11-0.7) k/cumm 0.41 Absolute Eosinophils (0.0-0.7) k/cumm 0.10 Absolute Basophils (0.0-0.2) k/cumm 0.01 Sodium (136-145) mmol/L 141 Potassium (3.5-5.1) mmol/L 4.0 Chloride (98-107) mmol/L 105 Carbon Dioxide (21.0-32.0) mmol/L 28.4 Anion Gap (3-11) mmol/L 7.6 BUN (7-18) mg/dL 19 H Creatinine (0.70-1.30) mg/dL 1.15 Estimated GFR/1.73 m2 (mL/min/1.73m2) >= 60.00 Glucose (70-100) mg/dL 106 H Calcium (8.5-10.1) mg/dL 8.7 Total Bilirubin (0.2-1.0) mg/dL 0.6 AST (15-37) U/L 12 L ALT (12-78) U/L 6 L Alkaline Phosphatase (46-116) U/L 92 Troponin I (0.00-0.06) ng/mL < 0.02 Total Protein (6.4-8.2) g/dL 6.3 L Albumin (3.4-5.0) g/dL 3.8 Urine Color (Yellow) Yellow Urine Clarity Clear Urine pH (5-8) 5.5 Ur Specific [place] (1.005-1.025) >= 1.030 H Urine Protein (Negative) mg/dL Trace H Urine Ketones (Negative) mg/dL Trace H Urine Blood (Negative) Negative Urine Nitrite (Negative) Negative Urine Bilirubin (Negative) Small H Urine Urobilinogen (Up TO 0.2) EU/dL 0.2 Ur Leukocyte Esterase (Negative) Negative Urine RBC (0-2) Negative Urine WBC (0-5) HPF 3-5 Ur Epithelial Cells (Negative) HPF Few Urine Crystals (Negative) HPF Negative Urine Bacteria (Negative) HPF Moderate Urine Casts (Negative) LPF Negative Urine Mucus (Negative) Heavy Urine Other (Negative) Negative Ur Culture Indicated? Yes Urine Glucose (Negative) mg/dL Negative ECG Data Attestation: I personally reviewed and interpreted this ECG (s) as follows: Interpretation: EKG shows sinus rhythm at 84, normal axis, no acute ischemic changes, nondiagnostic EKG HPI General Mode of arrival: EMS. Date/Time Provider Initiated Documentation: 07/15/18 13:52. Limitations to Documentation: physical limitation (Parkinson's disease). Information obtained by: patient, family, EMS, RN notes reviewed and old records reviewed. HPI Narrative: Rodolfo Hylton is an 82-year-old man with history of GERD, Parkinson's disease, seizure disorder, prostate cancer, TIA in the past presenting to the emergency department with AMS. Per EMS, was helping move the patient from a seated position to his wheelchair, when patient seem to go completely blank. Patient was apparently staring straight ahead and not interacting with her. This is not typical for him, and she called EMS. Patient had to be lowered onto the floor. Episode lasted less than 1 minute. Per EMS patient was back to baseline when they arrived. Patient denies having any pain, shortness of breath, vomiting. He reports that he has been in his usual state of health. He is not sure why his sent him into the emergency department. Related Data Home Medications Medication Instructions Recorded Confirmed carbidopa-levodopa [Sinemet CR] 1 tab-cap PO BID #90 tab-cap 10/08/13 04/30/18 ropinirole 1 mg PO DAILY 06/29/17 04/30/18 quetiapine [Seroquel] 1 tab PO HS 11/06/17 04/30/18 calcium carbonate [Calcium 500] 500 mg PO BID #30 tab 04/19/18 04/30/18 Previous Rx's Medication Instructions Recorded calcium carbonate [Calcium 500] 500 mg PO BID #30 tab 04/19/18 Allergies Allergy/AdvReac Type Severity Reaction Status Date / Time Sulfa (Sulfonamide AdvReac Mild GI/diarrhea Verified 04/30/18 03:39 Antibiotics) General Stated Complaint: AMS/LOC BANDAR: 3 Review of Systems Review of Systems Constitutional: denies fevers Eyes: denies eye pain ENT: denies facial pain, dental pain, sore throat Cardiovascular: denies chest pain Respiratory: denies SOB, cough GI: denies abdominal pain, vomiting, diarrhea : denies flank pain MSK: denies back pain, neck pain, arthralgias, myalgias Skin: denies rash Neuro: denies headaches, numbness, weakness PFSH Medical History TIA (transient ischemic attack) (Acute) Social History Smoking/Tobacco Use Status: Former Tobacco Use Alcohol Intake: former Drug use: Never Substance use type: does not use Do you feel safe at home: Yes Do you feel safe in your relationship?: Yes Exam Narrative Exam Narrative: Constitutional: well and [id number], pleasant, garbled speech at baseline per family HENT: head atraumatic/normocephalic/normal inspection, mucous membranes moist Eyes: conjunctiva normal, sclera normal, pupils 3mm b/l Neck: no stridor, normal ROM, trachea midline Chest: normal inspection Resp: normal work of breathing, LCTAB Cardio: normal rate, normal rhythm, no murmur appreciated GI: abdomen soft, non-tender, non-distended Back: normal inspection, no rash Skin: warm, dry, normal color, no rash Neuro: alert, not altered, grossly non-focal, 5/5 transmitter chief b/l, 5/5 LE motor b/l, normal tone Ext: no edema Psych: normal mood, normal affect, normal behavior Course Vital Signs Temperature 36.6 C 07/15/18 13:48 Pulse 94 H 07/15/18 13:48 Respiratory Rate 20 07/15/18 13:48 Blood Pressure 119/102 H 07/15/18 13:48 Pulse Oximetry 100 07/15/18 13:48 Temperature 36.6 C 07/15/18 13:48 Temperature Source Temporal Artery Scan 07/15/18 13:48 Pulse 94 H 07/15/18 13:48 Respiratory Rate 20 07/15/18 13:48 Respiratory Effort Non-Labored 07/15/18 13:48 Blood Pressure 119/102 H 07/15/18 13:48 Blood Pressure Position Standing 07/15/18 13:48 Pulse Oximetry 100 07/15/18 13:48 Oxygen Delivery Method Room Air 07/15/18 13:48 Oxygen Flow Rate 0 07/15/18 13:48
--- NOTE | 2018-07-15 14:08 | ED.GENADUL_ITS ---
Discharge Plan Disposition Patient Disposition: HOME Condition: Stable Discharge Details Chief Complaint: AMS/LOC Clinical Impression: Generalized weakness Primary Care Provider: Viki Hamilton ED Provider: Margareth Bird Home Meds and New Rx's Prescriptions: Continued carbidopa-levodopa [Sinemet CR] 1 EACH tablet extended release 1 tab-cap PO BID Qty: 90 RF: 5 ropinirole 1 MG tablet 1 mg PO DAILY RF: 0 quetiapine [Seroquel] 25 MG tablet 1 tab PO HS RF: 0 calcium carbonate [Calcium 500] 500 mg calcium (1,250 mg) tablet 500 mg PO BID Qty: 30 RF: 0 Discharge Instructions Instructions: Weakness (ED) Additional Instructions: Please return immediately to the emergency department if you develop any new or worsening symptoms or if you become otherwise concerned. It is extremely important that you make an appointment to be seen as soon as possible by your primary care doctor in follow-up for this visit. Referrals: Viki Hamilton MD [Primary Care Provider] - Discharge Data Discharge Date/Time-TO BE ENTERED AT DEPARTURE: 07/15/18 16:21 Medical Decision Making Rodolfo Hylton is an 82 y/o man with history of Parkinson's disease, GERD, seizure disorder who presented to the emergency department with episode of staring straight ahead and not interacting, now resolved. On exam patient is well and nontoxic appearing. He has garbled speech and otherwise benign neurol ogic exam. Concern for possible seizure versus other, doubt TIA. Exam/history is not consistent with sepsis, meningitis, ACS, acute emergent aortic pathology. Plan for CT head, EKG, screening labs. Will monitor and reassess. Patient's son and arrived in the emergency department after initial evaluation, and they describe different scenarios been was present by EMS. Patient son reports that patient seem to have generalized weakness today, which is why EMS was called. He reports that patient seems to be having trouble keeping himself sitting upright in his wheelchair today, despite being alert. He also seemed to have trouble with standing to pivot out of his wheelchair on the couch, which is atypical for him. Patient's son reports that he seems at baseline at this point. Patient son denies any earlier appearance of focal weakness. Patient demanding to go home. He states that there is nothing wrong with him and he feels fine. Patient's son is amenable to taking him home at this time. Doubt TIA since description of generalized weakness without focality. Unclear etiology of earlier symptoms. CT head negative. Labs nondiagnostic with equivocal UA, will hold abx pending cx. A lengthy discussion with the patient and his son regarding return to emergency department precautions, home care, and importance of outpatient follow-up. Patient was discharged home with clear plan for outpatient follow-up. Patient is son verbalized understanding the plan was amenable. All questions were answered. Patient was able to pivot from stretcher to his wheelchair without issue at time of discharge. Medical Records Medical records reviewed: Yes I reviewed the patient's medical records. Imaging Data Radiologic Study: Attestation: I personally reviewed and interpreted this imaging study as follows: Radiologist's impression: NONCONTRAST HEAD CT: Comparison is made with March,. No intracranial hemorrhage, mass or acute infarct is seen. Atrophy and white matter changes of small vessel disease are stable. There is no evidence of skull fracture or sinus opacification. IMPRESSION: No acute abnormality. Lab Data Lab results reviewed: Yes I reviewed the patient's lab results. 07/15/18 14:35 Urine - Reflex from Ua Urine Culture - Preliminary Laboratory Tests Range/Units 07/15/18 07/15/18 07/15/18 14:00 14:00 14:35 WBC (4.4-10.8) k/cumm 6.93 RBC (4.50-6.00) m/cumm 4.43 L Hgb (13.5-17.5) g/dL 14.1 Hct (40.0-50.0) % 41.6 MCV (80-95) fL 93.9 MCH (27.0-33.0) pg 31.8 MCHC (32.0-36.0) g/dL 33.9 RDW (11.8-14.1) % 13.3 Plt Count (130-400) x1000/uL 242 MPV (8.0-11.0) fL 9.5 Immature Gran % 0.0 Neutrophils % 83.8 Lymphocytes % 8.8 Monocytes % 5.9 Eosinophils % 1.4 Basophils % 0.1 Absolute Neutrophils (1.2-6.7) k/cumm 5.80 Absolute Lymphocytes (1.2-3.4) k/cumm 0.61 L Absolute Monocytes (0.11-0.7) k/cumm 0.41 Absolute Eosinophils (0.0-0.7) k/cumm 0.10 Absolute Basophils (0.0-0.2) k/cumm 0.01 Sodium (136-145) mmol/L 141 Potassium (3.5-5.1) mmol/L 4.0 Chloride (98-107) mmol/L 105 Carbon Dioxide (21.0-32.0) mmol/L 28.4 Anion Gap (3-11) mmol/L 7.6 BUN (7-18) mg/dL 19 H Creatinine (0.70-1.30) mg/dL 1.15 Estimated GFR/1.73 m2 (mL/min/1.73m2) >= 60.00 Glucose (70-100) mg/dL 106 H Calcium (8.5-10.1) mg/dL 8.7 Total Bilirubin (0.2-1.0) mg/dL 0.6 AST (15-37) U/L 12 L ALT (12-78) U/L 6 L Alkaline Phosphatase (46-116) U/L 92 Troponin I (0.00-0.06) ng/mL < 0.02 Total Protein (6.4-8.2) g/dL 6.3 L Albumin (3.4-5.0) g/dL 3.8 Urine Color (Yellow) Yellow Urine Clarity Clear Urine pH (5-8) 5.5 Ur Specific [place] (1.005-1.025) >= 1.030 H Urine Protein (Negative) mg/dL Trace H Urine Ketones (Negative) mg/dL Trace H Urine Blood (Negative) Negative Urine Nitrite (Negative) Negative Urine Bilirubin (Negative) Small H Urine Urobilinogen (Up TO 0.2) EU/dL 0.2 Ur Leukocyte Esterase (Negative) Negative Urine RBC (0-2) Negative Urine WBC (0-5) HPF 3-5 Ur Epithelial Cells (Negative) HPF Few Urine Crystals (Negative) HPF Negative Urine Bacteria (Negative) HPF Moderate Urine Casts (Negative) LPF Negative Urine Mucus (Negative) Heavy Urine Other (Negative) Negative Ur Culture Indicated? Yes Urine Glucose (Negative) mg/dL Negative ECG Data Attestation: I personally reviewed and interpreted this ECG (s) as follows: Interpretation: EKG shows sinus rhythm at 84, normal axis, no acute ischemic changes, nondiagnostic EKG HPI General Mode of arrival: EMS . Date/Time Provider Initiated Documentation: 07/15/18 13:52 . Limitations to Documentation: physical limitation (Parkinson's disease) . Information obtained by: patient, family, EMS, RN notes reviewed and old records reviewed . HPI Narrative: Rodolfo Hylton is an 82-year-old man with history of GERD, Parkinson's disease, seizure disorder, prostate cancer, TIA in the past presenting to the emergency department with AMS. Per EMS, was helping move the patient from a seated position to his wheelchair, when patient seem to go completely blank. Patient was apparently staring straight ahead and not interacting with her. This is not typical for him, and she called EMS. Patient had to be lowered onto the floor. Episode lasted less than 1 minute. Per EMS patient was back to baseline when they arrived. Patient denies having any pain, shortness of breath, vomiting. He reports that he has been in his usual state of health. He is not sure why his sent him into the emergency department. Related Data Home Medications Medication Instructions Recorded Confirmed carbidopa-levodopa [Sinemet CR] 1 tab-cap PO BID #90 tab-cap 10/08/13 04/30/18 ropinirole 1 mg PO DAILY 06/29/17 04/30/18 quetiapine [Seroquel] 1 tab PO HS 11/06/17 04/30/18 calcium carbonate [Calcium 500] 500 mg PO BID #30 tab 04/19/18 04/30/18 Previous Rx's Medication Instructions Recorded calcium carbonate [Calcium 500] 500 mg PO BID #30 tab 04/19/18 Allergies Allergy/AdvReac Type Severity Reaction Status Date / Time Sulfa (Sulfonamide AdvReac Mild GI/diarrhea Verified 04/30/18 03:39 Antibiotics) General Stated Complaint: AMS/LOC BANDAR: 3 Review of Systems Review of Systems Constitutional: denies fevers Eyes: denies eye pain ENT: denies facial pain, dental pain, sore throat Cardiovascular: denies chest pain Respiratory: denies SOB, cough GI: denies abdominal pain, vomiting, diarrhea : denies flank pain MSK: denies back pain, neck pain, arthralgias, myalgias Skin: denies rash Neuro: denies headaches, numbness, weakness [facility] Medical History TIA (transient ischemic attack) (Acute) Social History Smoking/Tobacco Use Status: Former Tobacco Use Alcohol Intake: former Drug use: Never Substance use type: does not use Do you feel safe at home: Yes Do you feel safe in your relationship?: Yes Exam Narrative Exam Narrative: Constitutional: well and [id number], pleasant, garbled speech at baseline per family HENT: head atraumatic/normocephalic/normal inspection, mucous membranes moist Eyes: conjunctiva normal, sclera normal, pupils 3mm b/l Neck: no stridor, normal ROM, trachea midline Chest: normal inspection Resp: normal work of breathing, LCTAB Cardio: normal rate, normal rhythm, no murmur appreciated GI: abdomen soft, non-tender, non-distended Back: normal inspection, no rash Skin: warm, dry, normal color, no rash Neuro: alert, not altered, grossly non-focal, 5/5 oncology specialist b/l, 5/5 LE motor b/l, normal tone Ext: no edema Psych: normal mood, normal affect, normal behavior Course Vital Signs Temperature 36.6 C 07/15/18 13:48 Pulse 94 H 07/15/18 13:48 Respiratory Rate 20 07/15/18 13:48 Blood Pressure 119/102 H 07/15/18 13:48 Pulse Oximetry 100 07/15/18 13:48 Temperature 36.6 C 07/15/18 13:48 Temperature Source Temporal Artery Scan 07/15/18 13:48 Pulse 94 H 07/15/18 13:48 Respiratory Rate 20 07/15/18 13:48 Respiratory Effort Non-Labored 07/15/18 13:48 Blood Pressure 119/102 H 07/15/18 13:48 Blood Pressure Position Standing 07/15/18 13:48 Pulse Oximetry 100 07/15/18 13:48 Oxygen Delivery Method Room Air 07/15/18 13:48 Oxygen Flow Rate 0 07/15/18 13:48
[2018-07-15 14:09] LABS: Absolute Basophil Count 0.01 k/cumm (0.0-0.2); Absolute Lymphocyte Count 0.61 k/cumm (1.2-3.4); Absolute Monocyte Count 0.41 k/cumm (0.11-0.7); Basophils % 0.1; Eosinophils % 1.4; HCT 41.6 % (40.0-50.0); HGB 14.1 g/dL (13.5-17.5); Lymphocytes % 8.8; Mean Corp. HGB Concentration 33.9 g/dL (32.0-36.0); Mean Corpuscular Hemoglobin 31.8 pg (27.0-33.0); Mean Corpuscular Volume 93.9 fL (80-95); Mean Platelet Volume 9.5 fL (8.0-11.0); Monocytes % 5.9; Neutrophils % 83.8; Platelet Count 242 x1000/uL (130-400); RBC 4.43 m/cumm (4.50-6.00); RBC Distribution Width 13.3 % (11.8-14.1); White Blood Cell Count 6.93 k/cumm (4.4-10.8)
[2018-07-15 14:28] LABS: ALT 6 U/L (12-78); AST 12 U/L (15-37); Albumin 3.8 g/dL (3.4-5.0); Alkaline Phosphatase 92 U/L (46-116); Anion Gap 7.6 mmol/L (3-11); BUN 19 mg/dL (7-18); Bilirubin, Total 0.6 mg/dL (0.2-1.0); CO2 28.4 mmol/L (21.0-32.0); CREATININE 1.15 mg/dL (0.70-1.30); Calcium 8.7 mg/dL (8.5-10.1); Chloride 105 mmol/L (98-107); Glucose 106 mg/dL (70-100); Sodium 141 mmol/L (136-145); Total Protein 6.3 g/dL (6.4-8.2)
[2018-07-15 14:29] LABS: Troponin I < 0.02 ng/mL (0.00-0.06)
[2018-07-15 14:41] LABS: Bilirubin Small (Negative); Blood Negative (Negative); Clarity Clear; Glucose Negative (Negative); Ketones Trace mg/dL (Negative); Leukocyte Esterase Negative (Negative); Nitrite Negative (Negative); Specific Gravity >= 1.030 (1.005-1.025); Urobilinogen 0.2 EU/dL (Up TO 0.2); pH 5.5 (5-8)
--- NOTE | 2018-07-15 14:46 | NUR.NOTE ---
Nursing Note: pt awake and alert, bilateral strong hand grasps. Family states that pt was slumped over in wheelchair for several hours then they called EMS. Pt with some baseline weak gait. stood and pivoted on scene per EMS. Urine specimen obtained via straight cath and sent to lab. NSR on manager cardiac cath. will continue to monitor.
[2018-07-15 15:10] LABS: Bacteria Moderate HPF (Negative); C & S Indicated? Yes; Casts Negative LPF (Negative); Crystals Negative HPF (Negative); Epithelial Cells Few HPF (Negative); Mucus Heavy (Negative); Other Cells Negative (Negative); RBC Negative (0-2)
--- NOTE | 2018-07-15 16:30 | PDOC.ERCMPRO ---
Care Management Progress Note 07/15-Dr. Konrad Bird requested assistance with Rodolfo's discharge. Rodolfo has been medically cleared for discharge. This CM called home health and spoke with Leonela. Leonela states that Rodolfo receives no services through them. 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 Rodolfo's son is paid under [employer] for caring for him. Son is here and will transport patient home.
--- NOTE | 2018-07-15 16:32 | CMPROGNOTE_ITS ---
Care Management Progress Note 07/15-Dr. Konrad Bird requested assistance with Rodolfo's discharge. Rodolfo has been medically cleared for discharge. This CM called home health and spoke with Leonela. Leonela states that Rodolfo receives no services through them. 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 Rodolfo's son is paid under [employer] for caring for him. Son is here and will transport patient home.
== END 2018-07-15 16:21 | disposition home or self-care (01) ==
PROVIDERS: Emergency Provider Student in an Organized Health Care Education/Training Program
DX: R53.1 Weakness (principal); G20 Parkinson's disease
CPT/HCPCS: 36415; 51701; 80053; 93005; 99285; 70450; 71046; 81003; 81015; 84484; 85025; 87086; 93010; 99284

== ENCOUNTER 2018-11-29 15:30 | Emergency (ER) | payer MEDICARE, MEDICAID, SELFPAY ==
[2018-11-29 15:34] VITALS: BP 119/87; PULSE 72; RESP 16; TEMP 36.9; O2SAT 95
--- NOTE | 2018-11-29 16:01 | DI.COMBO_ITS ---
SYMPTOM/DIAGNOSIS: S/P FALL, ? ACUTE FX, PAIN CERVICAL SPINE CT: CT examination of the cervical spine was performed utilizing multi slice acquisition and multi planar reconstruction. There are degenerative changes of the cervical spine with endplate and facet hypertrophic changes at multiple levels and disc space narrowing particularly at C 5-6 and C 6-7. There is no evidence of acute cervical fracture or dislocation. Visualized lung apices appear clear. Tracheal laryngeal structures appear intact. No cervical mass or adenopathy is seen. CONCLUSION: No evidence of acute cervical injury. NONCONTRAST HEAD CT: A noncontrast cranial CT was performed without contrast administration. There is moderate generalized cerebral atrophy and there are patchy areas of decreased attenuation in periventricular white matter bilaterally consistent with microvascular ischemic change. There is no evidence of acute intracranial hemorrhage, mass effect or midline shift. The orbital and temporal bone structures appear intact. Paranasal sinuses and mastoid air cells are well aerated as visualized. No calvarial fracture identified. CONCLUSION: No evidence of acute intracranial injury. PA AND LATERAL CHEST: There is an apparent eventration of the diaphragm on the left. The lungs are clear and well expanded. Cardiac size is within normal limits. No pleural effusion is seen. CONCLUSION: No evidence of acute process. AP PELVIS: Two apparent metallic wires are projected over the pubic bones, unchanged from previous examination of 10/2017. Mild degenerative changes of both hips and SI joints are noted. No acute fracture identified on this single AP view.
--- NOTE | 2018-11-29 16:09 | W.ED.GENAD ---
Discharge Plan Disposition Patient Disposition: HOME Condition: Stable Discharge Details Chief Complaint: HeadInjury Clinical Impression: Closed head injury, Back pain Primary Care Provider: Yazmin Urbina ED Provider: Esther Olsen Home Meds and New Rx's Prescriptions: No Action carbidopa-levodopa [Sinemet CR] 1 EACH tablet extended release 1 tab-cap PO BID Qty: 90 RF: 5 ropinirole 1 MG tablet 1 mg PO DAILY RF: 0 quetiapine [Seroquel] 25 MG tablet 1 tab PO HS RF: 0 calcium carbonate [Calcium 500] 500 mg calcium (1,250 mg) tablet 500 mg PO BID Qty: 30 RF: 0 Discharge Instructions Instructions: Head Injury (ED), Back Pain (ED) Additional Instructions: Take Tylenol as needed and directed for pain. Follow-up with your primary care doctor next week for reevaluation. Return to the emergency department if you develop any worsening or new concerning symptoms. Discharge Data Discharge Physician: Esther Olsen Medical Decision Making 83-year-old male with a history of Parkinson's disease, GERD, seizure disorder, tremors and restless leg who presents for evaluation after mechanical fall and head injury. Patient complaining mainly of headache. Denies any other pain or injury. Son states he is at his mental status baseline. He is hemodynamically stable. No obvious focal deficits. No evidence of head trauma. No C-spine tenderness. He does have midline C-spine tenderness. Chest and abdomen nontender. Moving all extremities without evidence of deformity. We will obtain a CT head and cervical spine, chest x-ray, and pelvis x-ray and give a dose of Tylenol. All imaging reviewed and negative. Son feels good to take patient home. Advised to follow-up with the primary care doctor for reevaluation and to return here anytime if worse. Medical Records Medical records reviewed: Yes I reviewed the patient's medical records. Imaging Data Radiologic Study: Radiologist's impression: XR Chest, 2 Views EXAM DATE/TIME: 11/29/2018 4:31 PM CLINICAL HISTORY: 83 years old, male; Injury or trauma; Fall; Initial encounter; Blunt trauma (contusions or hematomas) TECHNIQUE: Imaging protocol: XR of the chest, 2 views. COMPARISON: CR XR CHEST 2V PA LATERAL 07/15/2018 2:18 PM FINDINGS: Lungs: No focal areas of consolidation. Pleural space: No pleural effusion or pneumothorax. Heart/Mediastinum: Cardiac and mediastinal silhouettes are unremarkable. Bones/joints: No acute osseus lesion or fracture. IMPRESSION: No acute cardiopulmonary pathology. XR Pelvis EXAM DATE/TIME: 11/29/2018 4:31 PM CLINICAL HISTORY: 83 years old, male; Injury or trauma; Fall; Initial encounter; Blunt trauma (contusions or hematomas); Bilateral; Hip TECHNIQUE: Imaging protocol: XR pelvis. Views: 1 or 2 view. COMPARISON: No relevant prior studies available. FINDINGS: Bones/joints: No acute fracture or dislocation. Joint spaces are unremarkable. Soft tissues: Small metallic densities project over the medial pelvis, possibly external to patient. IMPRESSION: No acute fracture or dislocation. CT Head Without Contrast EXAM DATE/TIME: 11/29/2018 4:03 PM CLINICAL HISTORY: 83 years old, male; Injury or trauma; Fall; Initial encounter; Blunt trauma; Prior surgery TECHNIQUE: Imaging protocol: Computed tomography images of the head without contrast. Coronal and sagittal reformatted images were created and reviewed. COMPARISON: No relevant prior studies available. FINDINGS: Brain: Nonspecific hypodensities of the periventricular and deep subcortical white matter, most likely secondary to chronic small vessel ischemic change. No intracranial hemorrhage or extra-axial fluid collection. No evidence of mass effect or midline shift. Brannon-white matter differentiation is normal. Ventricles: Prominence of the ventricles and sulci, most likely attributed to parenchymal volume loss. Bones/joints: No acute osseus lesion or fracture. Sinuses: Unremarkable as visualized. Mastoid air cells: Unremarkable. Soft tissues: Unremarkable. IMPRESSION: 1. No acute intracranial pathology. 2. Other chronic findings, as above. CT Cervical Spine Without Contrast EXAM DATE/TIME: 11/29/2018 4:03 PM CLINICAL HISTORY: 83 years old, male; Injury or trauma; Fall; Initial encounter; Blunt trauma; Prior surgery TECHNIQUE: Imaging protocol: Computed tomography images of the cervical spine without contrast. Coronal and sagittal reformatted images were created and reviewed. COMPARISON: No relevant prior studies available. FINDINGS: Vertebrae: Vertebral body heights are maintained. No locked or perched facets. Multilevel facet arthropathy. No acute cervical spine fracture. The dens is intact. [place]-axial intervals are normal. Discs/Spinal canal/Neural foramina: Multilevel degenerative changes with intervertebral disc height loss and osteophyte formation, with multilevel areas of mild canal stenosis. Soft tissues: Unremarkable. Lungs: Lung apices are clear. IMPRESSION: No acute cervical spine fracture. HPI General Mode of arrival: wheelchair. Date/Time Provider Initiated Documentation: 11/29/18 15:44. Limitations to Documentation: no limitations. Information obtained by: patient. HPI Narrative: Patient is an 83-year-old male with a history of Parkinson's, TIA, GERD, seizure disorder, prostate CA who presents status post fall with head injury. Son states that patient was adjusting himself in the wheelchair when he slid out and hit his head and back on a wooden post. He denies any LOC or vomiting. Son states that patient appears that his mental status baseline. Patient has not walked for several years due to weakness of unknown origin. Patient is complaining mainly of headache. He denies any chest or abdominal pain, neck or back pain or any extremity pain. He has not taken any medication for pain. Son denies any LOC or dizziness prior to fall. Related Data Home Medications Medication Instructions Recorded Confirmed carbidopa-levodopa [Sinemet CR] 1 tab-cap PO BID #90 tab-cap 10/08/13 04/30/18 ropinirole 1 mg PO DAILY 06/29/17 04/30/18 quetiapine [Seroquel] 1 tab PO HS 11/06/17 04/30/18 calcium carbonate [Calcium 500] 500 mg PO BID #30 tab 04/19/18 04/30/18 Previous Rx's Medication Instructions Recorded calcium carbonate [Calcium 500] 500 mg PO BID #30 tab 04/19/18 Allergies Allergy/AdvReac Type Severity Reaction Status Date / Time Sulfa (Sulfonamide AdvReac Mild GI/diarrhea Verified 04/30/18 03:39 Antibiotics) General Stated Complaint: HeadInjury BANDAR: 3 Review of Systems Review of Systems All systems reviewed & are unremarkable except as noted in HPI and below Constitutional Reports as per HPI, Denies chills, Denies fever(s) and Reports headache(s) Eyes Denies blurry vision ENT Denies dizziness, Reports headache(s), Denies sore throat and Denies throat swelling Cardiovascular Denies chest pain and Denies dyspnea Respiratory Denies cough and Denies dyspnea Gastrointestinal Denies abdominal pain, Denies diarrhea and Denies vomiting Genitourinary Denies hematuria and Denies dysuria Musculoskeletal Denies back pain and Denies numbness Integumentary/Breasts Denies lesions and Denies rash Neurologic Denies dizziness, Reports headache(s), Denies focal weakness and Denies numbness Allergic/Immunologic Denies throat swelling [facility] Medical History TIA (transient ischemic attack) (Acute) Surgical History History of appendectomy (Chronic) History of hernia repair (Chronic) History of knee replacement (Chronic) Social History Smoking/Tobacco Use Status: Former Tobacco Use Alcohol Intake: former Drug use: Never Substance use type: does not use Do you feel safe at home: Yes Do you feel safe in your relationship?: Yes Exam Const General: cooperative and healthy appearing Orientation: alert and awake HENMT Head: normal to inspection, no palpable skull fracture, normocephalic and atraumatic Ears: hearing grossly normal bilaterally, external ears normal and TM's normal bilaterally General nose exam: external nose normal Face and sinus: normal facial exam Mouth: oral mucosae normal Teeth and gingiva: dentition normal Throat: posterior oropharynx normal Eyes General: appearance normal, both eyes and all related structures Eyelids: eyelids normal Pupils: PERRL EOM: EOM intact bilaterally Neck Neck: normal visual inspection Lymphatic: no lymphadenopathy noted Chest Chest: normal inspection of the chest Resp Effort & Inspection: normal respiratory effort and able to speak in complete sentences Auscultation: clear to auscultation bilaterally Cardio Rate: regular rate Rhythm: regular rhythm GI Inspection: normal to inspection Palpation: soft, not firm, no guarding, no hepatosplenomegaly, no masses and nontender Auscultation: normal bowel sounds Back/Spine/Pelvis Back: no CVA tenderness Skin General skin exam: no rashes or lesions noted Neuro General: alert, awake and oriented (Baseline) Patient Orientation: Person and Place Cognition: normal cognition Speech: abnormal speech stuttering (Chronic due to parkinsonian features) Motor: muscle tone normal throughout and strength 5/5 throughout Sensory Exam: no sensory deficits noted Extrem General: normal to inspection, full ROM and normal capillary refill Psych Appearance: grossly normal Mental Status: mental status grossly normal Affect: normal affect Thought Process: normal Course Vital Signs Temperature 98.4 F 11/29/18 15:34 Pulse 72 11/29/18 15:34 Respiratory Rate 16 11/29/18 15:34 Blood Pressure 119/87 11/29/18 15:34 Pulse Oximetry 95 11/29/18 15:34 Temperature 98.4 F 11/29/18 15:34 Temperature Source Skin 11/29/18 15:34 Pulse 72 11/29/18 15:34 Respiratory Rate 16 11/29/18 15:34 Respiratory Effort Non-Labored 11/29/18 15:45 Respiratory Depth Normal 11/29/18 15:45 Respiratory Pattern Normal 11/29/18 15:45 Blood Pressure 119/87 11/29/18 15:34 Blood Pressure Position Sitting 11/29/18 15:34 Pulse Oximetry 95 11/29/18 15:34 Oxygen Delivery Method Room Air 11/29/18 15:34 Oxygen Flow Rate 0 11/29/18 15:34
--- NOTE | 2018-11-29 16:57 | DI.VRAD_ITS ---
EXAM: CT Head Without Contrast EXAM DATE/TIME: 11/29/2018 4:03 PM CLINICAL HISTORY: 83 years old, male; Injury or trauma; Fall; Initial encounter; Blunt trauma; Prior surgery TECHNIQUE: Imaging protocol: Computed tomography images of the head without contrast. Coronal and sagittal reformatted images were created and reviewed. COMPARISON: No relevant prior studies available. FINDINGS: Brain: Nonspecific hypodensities of the periventricular and deep subcortical white matter, most likely secondary to chronic small vessel ischemic change. No intracranial hemorrhage or extra-axial fluid collection. No evidence of mass effect or midline shift. Brannon-white matter differentiation is normal. Ventricles: Prominence of the ventricles and sulci, most likely attributed to parenchymal volume loss. Bones/joints: No acute osseus lesion or fracture. Sinuses: Unremarkable as visualized. Mastoid air cells: Unremarkable. Soft tissues: Unremarkable. IMPRESSION: 1. No acute intracranial pathology. 2. Other chronic findings, as above. EXAM: CT Cervical Spine Without Contrast EXAM DATE/TIME: 11/29/2018 4:03 PM CLINICAL HISTORY: 83 years old, male; Injury or trauma; Fall; Initial encounter; Blunt trauma; Prior surgery TECHNIQUE: Imaging protocol: Computed tomography images of the cervical spine without contrast. Coronal and sagittal reformatted images were created and reviewed. COMPARISON: No relevant prior studies available. FINDINGS: Vertebrae: Vertebral body heights are maintained. No locked or perched facets. Multilevel facet arthropathy. No acute cervical spine fracture. The dens is intact. Atlanto-axial intervals are normal. Discs/Spinal canal/Neural foramina: Multilevel degenerative changes with intervertebral disc height loss and osteophyte formation, with multilevel areas of mild canal stenosis. Soft tissues: Unremarkable. Lungs: Lung apices are clear. IMPRESSION: No acute cervical spine fracture. Dictated and Authenticated by: Duran Khan MD. Ordering:CHANEL Santana MD
--- NOTE | 2018-11-29 16:58 | DI.VRAD_ITS ---
EXAM: XR Pelvis EXAM DATE/TIME: 11/29/2018 4:31 PM CLINICAL HISTORY: 83 years old, male; Injury or trauma; Fall; Initial encounter; Blunt trauma (contusions or hematomas); Bilateral; Hip TECHNIQUE: Imaging protocol: XR pelvis. Views: 1 or 2 view. COMPARISON: No relevant prior studies available. FINDINGS: Bones/joints: No acute fracture or dislocation. Joint spaces are unremarkable. Soft tissues: Small metallic densities project over the medial pelvis, possibly external to patient. IMPRESSION: No acute fracture or dislocation. Dictated and Authenticated by: Duran Khan MD. Ordering:CHANEL Santana MD
--- NOTE | 2018-11-29 16:59 | DI.VRAD_ITS ---
EXAM: XR Chest, 2 Views EXAM DATE/TIME: 11/29/2018 4:31 PM CLINICAL HISTORY: 83 years old, male; Injury or trauma; Fall; Initial encounter; Blunt trauma (contusions or hematomas) TECHNIQUE: Imaging protocol: XR of the chest, 2 views. COMPARISON: CR XR CHEST 2V PA LATERAL 07/15/2018 2:18 PM FINDINGS: Lungs: No focal areas of consolidation. Pleural space: No pleural effusion or pneumothorax. Heart/Mediastinum: Cardiac and mediastinal silhouettes are unremarkable. Bones/joints: No acute osseus lesion or fracture. IMPRESSION: No acute cardiopulmonary pathology. Dictated and Authenticated by: Duran Khan MD. Ordering:CHANEL Santana MD
[2018-11-29 17:47] VITALS: BP 119/87; PULSE 72; RESP 16; TEMP 36.9; O2SAT 95
== END 2018-11-29 17:48 | disposition home or self-care (01) ==
PROVIDERS: Emergency Provider Physician Assistant; PCP Family Medicine
DX: S09.90XA Unspecified injury of head, initial encounter (principal); M54.6 Pain in thoracic spine; W05.0XXA Fall from non-moving wheelchair, initial encounter; G20 Parkinson's disease
CPT/HCPCS: 99284; 70450; 71046; 72125; 72170

== ENCOUNTER 2018-12-02 15:51 | Outpatient (REF) | payer MEDICARE, MEDICAID, SELFPAY ==
[2018-12-04 10:24] LABS: PSA, Diagnostic 0.7 ng/ml (0-6.5)
== END 2018-12-02 16:11 ==
LOC: NCHCN 15:51
PROVIDERS: PCP Family Medicine; Visit Provider Nurse Practitioner Family
DX: R31.0 Gross hematuria (principal); S06.9X0S Unspecified intracranial injury without loss of consciousness, sequela; C61 Malignant neoplasm of prostate
CPT/HCPCS: 84153

== ENCOUNTER 2018-12-30 15:16 | Emergency (ER) | payer MEDICARE, MEDICAID, SELFPAY ==
[2018-12-30 15:11] VITALS: BP 144/106; PULSE 57; RESP 16; TEMP 36.9; O2SAT 98
--- NOTE | 2018-12-30 15:40 | ED.GENADUL_ITS ---
Discharge Plan Disposition Patient Disposition: HOME Condition: Good Discharge Details Chief Complaint: Urinary Clinical Impression: Acute urinary retention Primary Care Provider: Yazmin Urbina ED Provider: Antwon Rollins Home Meds and New Rx's Prescriptions: New cephalexin [Keflex] 500 mg capsule 500 mg PO QID 7 Days Qty: 28 RF: 0 No Action carbidopa-levodopa [Sinemet CR] 1 EACH tablet extended release 1 tab-cap PO BID Qty: 90 RF: 5 ropinirole 1 MG tablet 1 mg PO DAILY RF: 0 calcium carbonate [Calcium 500] 500 mg calcium (1,250 mg) tablet 500 mg PO BID Qty: 30 RF: 0 oxybutynin chloride 10 mg Tablet Extended Release 24hr 10 mg PO DAILY RF: 0 lorazepam [Ativan] 0.5 mg Tablet 0.5 mg PO DAILY PRNRF: 0 pravastatin 20 mg Tablet 20 mg PO DAILY RF: 0 Discharge Instructions Instructions: Urinary Retention in Men (ED) Additional Instructions: At this time there is no evidence of severe urinary tract infection however as a precaution we will give an antibiotic to make sure that no infection develops. If the patient develops return of his symptoms and he will need to return for potential [place] catheterization and potential admission. Please take the antibiotic as directed. If you notice any worsening of your symptoms, or any new symptoms such as vomiting, diarrhea, fever, chills, shortness of breath, chest pain, numbness, weakness, or fainting , please return immediately to the emergency department for reevaluation. Please follow up with your primary care provider as soon as possible for reassessment and reevaluation. As always, it was a pleasure participating in your medical care today. Referrals: Yazmin Urbina [Primary Care Provider] - Discharge Data Discharge Date/Time-TO BE ENTERED AT DEPARTURE: 12/30/18 19:05 Medical Decision Making This is a pleasant 83-year-old male with a past medical history of GERD, Parkinson's disease, previous mini strokes, prostate cancer with radiation therapy, who presents today by EMS for evaluation of urinary retention for the last 3 days. The patient is a notably poor historian, he follows all commands but is not able to successfully answer any questions. No focal neurologic deficits on exam. Suprapubic exam demonstrates notably distended and tender bladder, firm to the touch. Male genital exam and rectal exam is otherwise benign. Differential at this time is highest for urinary retention especially with his presenting complaint per EMS. We will get in contact with family to see if there is any additional history that can be provided. We will straight cath the patient for urinary relief. 8:30 PM Family did present at bedside, and they state that the patient is at his current mental baseline with no significant alterations. The patient had relief of his symptoms after straight catheterization. Out of an abundance of precaution laboratory work-up was drawn, no white count, hemoglobin stable, renal function normal. Urinalysis does show evidence of mild ketones, we have rehydrated the patient. Nitrate negative, leukoesterase negative, he does have notable RBCs with 20-50 WBCs, she feels most likely secondary to the RBCs with no clinical evidence of severe infection. CT scan was ordered, she does demonstrate a 3 mm nonobstructing left upper pole renal calculus, there is also some mild circumferential thickening of the wall of the bladder, this may be related to cystitis. Review of history with the family does show evidence that he recently did have a urinary tract infection which she was treated with Keflex for however the patient was notably noncompliant with the medication, and did not take it completely or as directed. With negative nitrates, negative leuk esterase I feel it unlikely that he has a severe infection. We will treat with Keflex out of an abundance of precaution and recommend completion of the course, as well as utilization as directed. With the patient's baseline status at his normal levels, no other significant abnormality noted on laboratory work-up or CT scan I feel he can be safely discharged home. I had a long discussion with the patient's family member, regarding discharge versus admission, as well as reasons for which to immediately return and the patient family are in agreement at this time. I have extensively reviewed the treatment plan and discharge instructions with the patient and their family. I have addressed all patient concerns at this time. The patient and family was made aware of what symptoms to monitor for that would warrant a return to the emergency department. Discussed the plan with the patient and family, they demonstrate verbal understanding and agreement with our assessment and plan at this time. FINDINGS: Lungs: There is mild bibasilar atelectasis. Liver: Unenhanced liver appears unremarkable. Gallbladder and bile ducts: Motion artifact limits detail. Pancreas: The pancreas is normal. Spleen: Unenhanced spleen appears unremarkable. Adrenals: Left adrenal gland is prominent as compared to the right without evidence of discrete nodule. Kidneys and ureters: Right kidney has an unremarkable unenhanced morphology. There is a 3 mm nonobstructing left upper pole renal calculus. There is a prominent left extrarenal pelvis with mild dilatation of the left intrarenal collecting system. Stomach and bowel: There is scattered colonic diverticulosis without evidence of diverticulitis. Appendix: No evidence of appendicitis. Intraperitoneal space: Unremarkable. No free air. No significant fluid collection. Vasculature: There are aortic valvular and coronary artery calcifications present. Atherosclerotic calcifications of the aorta and iliac arteries without evidence of aneurysm. Lymph nodes: Unremarkable. No enlarged lymph nodes. Bladder: There is circumferential thickening of the wall the bladder with a small focus of air anteriorly. Reproductive: There are prostatic implants identified. Bones/joints: Degenerative changes of the lumbar spine without acute osseous abnormality. Soft tissues: Unremarkable. IMPRESSION: The study is limited secondary to motion artifact and streak artifact from the patient's overlying arms. 1. 3 mm nonobstructing left upper pole renal calculus. Prominent left extrarenal pelvis with mild dilatation left internal collecting system that may be secondary to left UPJ obstruction. 2. Circumferential thickening of the wall of the bladder. This may be secondary to cystitis, however underlying bladder mucosal lesion cannot be excluded. Small focus of air within the bladder. Please correlate with recent instrumentation or catheterization. Dictated and Authenticated by: Amor Coon MD. Ordering:DOREEN Kapoor MD HPI General Date/Time Provider Initiated Documentation: 12/30/18 15:20 . HPI Narrative: This is an 83-year-old male with a past medical history of GERD, Parkinson's disease, tremors, and dementia who presents today by EMS for inability to urinate for the last 3 days. Per EMS he is also had occasional diarrhea but no hard stool whatsoever. The patient is a notably poor historian, and fails to answer any question with any significant response. He appears notably pleasantly confused. Family member is not at bedside. He denies any complaints of chest pain abdominal pain, burning in his urine, numbness tingling or weakness. History is otherwise limited. No other modifying factors. No other complaints at this time. Related Data Home Medications Medication Instructions Recorded Confirmed carbidopa-levodopa [Sinemet CR] 1 tab-cap PO BID #90 tab-cap 10/08/13 12/30/18 ropinirole 1 mg PO DAILY 06/29/17 12/30/18 calcium carbonate [Calcium 500] 500 mg PO BID #30 tab 04/19/18 12/30/18 cephalexin [Keflex] 500 mg PO QID 7 Days #28 cap 12/30/18 lorazepam [Ativan] 0.5 mg PO DAILY PRN 12/30/18 12/30/18 oxybutynin chloride 10 mg PO DAILY 12/30/18 12/30/18 pravastatin 20 mg PO DAILY 12/30/18 12/30/18 Previous Rx's Medication Instructions Recorded calcium carbonate [Calcium 500] 500 mg PO BID #30 tab 04/19/18 cephalexin [Keflex] 500 mg PO QID 7 Days #28 cap 12/30/18 Allergies Allergy/AdvReac Type Severity Reaction Status Date / Time Sulfa (Sulfonamide AdvReac Mild GI/diarrhea Verified 12/30/18 16:09 Antibiotics) General Stated Complaint: Urinary BANDAR: 4 Review of Systems Review of Systems All systems reviewed & are unremarkable except as noted in HPI and below PFSH Social History Smoking/Tobacco Use Status: Former Tobacco Use Alcohol Intake: former Drug use: Never Substance use type: does not use Do you feel safe at home: Yes Do you feel safe in your relationship?: Yes Exam Narrative Exam Narrative: 1.Const: Disheveled appearing elderly male, unkempt [place], no acute distress 2.Eyes: PERRL, no conjunctival injection, and symmetrical lids. 3.ENT: Atraumatic external nose and ears. Dry MM. Neck: Symmetric, trachea midline, No thyromegaly. 4.CVS: +S1/S2, No murmurs or gallops. Peripheral pulses 2+ and equal in all extremities. Brisk capillary refill in all extremities. 5.RESP: Unlabored respiratory effort. Clear to auscultation bilaterally. No wheezes rales or rhonchi 6.GI: Soft, Nontender/Nondistended, No hepatosplenomegaly. No guarding or rebound. Notable mass/distended bladder on palpation, confirmed with bedside ultrasound. Rectal exam and genital exam were performed with nurse at bedside. Genital exam demonstrated nontender male genitalia, rectal exam demonstrated soft stool, no liquid stool, no firm hard stool ball. 7.MSK: Normocephalic/Atraumatic, Extremities w/o deformity or ttp No cyanosis or clubbing, Normal movement of all extremities 8.Skin: Warm, Dry. No rashes or lesions. 9.Neuro: Patient moves all extremities, no facial asymmetry, no focal neurologic deficit 10.Psych: ANO x0, pleasantly confused, follows all commands. Course Vital Signs Temperature 36.9 C 12/30/18 15:11 Pulse 57 L 12/30/18 15:11 Respiratory Rate 16 12/30/18 15:11 Blood Pressure 144/106 H 12/30/18 15:11 Pulse Oximetry 98 12/30/18 15:11 Temperature 36.9 C 12/30/18 15:11 Temperature Source Temporal Artery Scan 12/30/18 15:11 Pulse 57 L 12/30/18 15:11 Respiratory Rate 16 12/30/18 15:11 Respiratory Effort Non-Labored 12/30/18 15:16 Blood Pressure 144/106 H 12/30/18 15:11 Blood Pressure Position Supine 12/30/18 15:11 Pulse Oximetry 98 12/30/18 15:11 Oxygen Delivery Method Room Air 12/30/18 15:11 Oxygen Flow Rate 0 12/30/18 15:11
[2018-12-30 16:14] LABS: Bilirubin Negative (Negative); Blood Large (Negative); Clarity Clear (Clear); Glucose Negative (Negative); Ketones 40 mg/dL (Negative); Leukocyte Esterase Negative (Negative); Nitrite Negative (Negative); Urobilinogen 0.2 EU/dL (Up TO 0.2); pH 6.5 (5-8)
[2018-12-30 16:29] LABS: Bacteria Negative HPF (Negative); C & S Indicated? Yes; Casts Negative LPF (Negative); Crystals Negative HPF (Negative); Epithelial Cells Negative HPF (Negative); Mucus Negative (Negative); Other Cells Negative (Negative); RBC >50 (0-2); WBC 20-50 HPF (0-5)
--- NOTE | 2018-12-30 16:48 | DI.CT_ITS ---
SYMPTOM/DIAGNOSIS: GENERALIZED ABDOMINAL PAIN, URINARY RETENTION HEM ABDOMINAL AND PELVIC CT: 12/30 CT examination of the abdomen and pelvis was performed without contrast administration. Images obtained through the lung bases are unremarkable. There is marked breathing and motion artifact. Liver and spleen are grossly unremarkable in appearance. The pancreas appears intact as visualized. Gallbladder is poorly visualized but grossly CT normal. No biliary dilatation. Abdominal aorta is of normal diameter. No significant abdominal wall hernia seen. No significant abdominal or pelvic adenopathy. Diverticulosis of the colon noted without evidence of diverticulitis. Appendix not specifically visualized but there is no evidence of appendicitis. Adrenals grossly unremarkable in appearance. Nonobstructing left renal calculus noted. Question mild left hydronephrosis, UPJ obstruction not excluded. Right collecting system poorly seen. Urinary bladder is thick-walled raising the possibility of cystitis or chronic bladder outlet obstruction, please correlate clinically. Small quantity of gas in the bladder could be associated with infectious process or recent instrumentation. Please correlate clinically. CONCLUSION: Question mild left hydronephrosis, there appear to be multiple parapelvic cysts of the left kidney as well, correlation with CT urogram recommended. Nonobstructing left renal calculus also noted which measures roughly 5 mm in diameter.
[2018-12-30 17:10] LABS: Abs Immature Grans 0.01 k/cumm (0.0-0.09); Absolute Basophil Count 0.02 k/cumm (0.0-0.2); Absolute Eosinophil Count 0.04 k/cumm (0.0-0.7); Absolute Lymphocyte Count 1.25 k/cumm (1.2-3.4); Absolute Monocyte Count 0.53 k/cumm (0.11-0.7); Absolute Neutrophil Count 4.55 k/cumm (1.2-6.7); Basophils % 0.3; Eosinophils % 0.6; HCT 42.4 % (40.0-50.0); HGB 14.5 g/dL (13.5-17.5); Immature Grans % 0.2; Lymphocytes % 19.5; Mean Corp. HGB Concentration 34.2 g/dL (32.0-36.0); Mean Corpuscular Hemoglobin 31.3 pg (27.0-33.0); Mean Corpuscular Volume 91.6 fL (80-95); Mean Platelet Volume 9.6 fL (8.0-11.0); Monocytes % 8.3; Neutrophils % 71.1; Platelet Count 239 x1000/uL (130-400); RBC 4.63 m/cumm (4.50-6.00)
[2018-12-30 17:19] LABS: ALT 17 U/L (16-63); AST 19 U/L (15-37); Albumin 3.6 g/dL (3.4-5.0); Alkaline Phosphatase 77 U/L (46-116); BUN 19 mg/dL (7-18); Bilirubin, Total 1.1 mg/dL (0.2-1.0); CREATININE 1.02 mg/dL (0.70-1.30); Calcium 8.8 mg/dL (8.5-10.1); Chloride 106 mmol/L (98-107); Glucose 97 mg/dL (70-100); Potassium 4.2 mmol/L (3.5-5.1); Sodium 141 mmol/L (136-145); Total Protein 6.2 g/dL (6.4-8.2)
--- NOTE | 2018-12-30 18:07 | DI.VRAD_ITS ---
EXAM: CT Abdomen and Pelvis Without Contrast EXAM DATE/TIME: 12/30/2018 4:49 PM CLINICAL HISTORY: 83 years old, male; Abdominal pain; Patient HX: Generalized abd pain, urinary retention, hem TECHNIQUE: Imaging protocol: Computed tomography of the abdomen and pelvis without contrast. COMPARISON: SC XR pelvis AP 11/29/2018 4:24 PM The study is limited secondary to motion artifact and streak artifact from the patient's overlying arms. FINDINGS: Lungs: There is mild bibasilar atelectasis. Liver: Unenhanced liver appears unremarkable. Gallbladder and bile ducts: Motion artifact limits detail. Pancreas: The pancreas is normal. Spleen: Unenhanced spleen appears unremarkable. Adrenals: Left adrenal gland is prominent as compared to the right without evidence of discrete nodule. Kidneys and ureters: Right kidney has an unremarkable unenhanced morphology. There is a 3 mm nonobstructing left upper pole renal calculus. There is a prominent left extrarenal pelvis with mild dilatation of the left intrarenal collecting system. Stomach and bowel: There is scattered colonic diverticulosis without evidence of diverticulitis. Appendix: No evidence of appendicitis. Intraperitoneal space: Unremarkable. No free air. No significant fluid collection. Vasculature: There are aortic valvular and coronary artery calcifications present. Atherosclerotic calcifications of the aorta and iliac arteries without evidence of aneurysm. Lymph nodes: Unremarkable. No enlarged lymph nodes. Bladder: There is circumferential thickening of the wall the bladder with a small focus of air anteriorly. Reproductive: There are prostatic implants identified. Bones/joints: Degenerative changes of the lumbar spine without acute osseous abnormality. Soft tissues: Unremarkable. IMPRESSION: The study is limited secondary to motion artifact and streak artifact from the patient's overlying arms. 1. 3 mm nonobstructing left upper pole renal calculus. Prominent left extrarenal pelvis with mild dilatation left internal collecting system that may be secondary to left UPJ obstruction. 2. Circumferential thickening of the wall of the bladder. This may be secondary to cystitis, however underlying bladder mucosal lesion cannot be excluded. Small focus of air within the bladder. Please correlate with recent instrumentation or catheterization. Dictated and Authenticated by: Amor Coon MD. Ordering:DOREEN Kapoor MD
[2018-12-30 19:02] VITALS: BP 144/106; PULSE 57; RESP 16; TEMP 36.9; O2SAT 98
== END 2018-12-30 19:05 | disposition home or self-care (01) ==
PROVIDERS: Emergency Provider Student in an Organized Health Care Education/Training Program; PCP Family Medicine
DX: R33.9 Retention of urine, unspecified (principal); Z85.46 Personal history of malignant neoplasm of prostate; Z92.3 Personal history of irradiation; G20 Parkinson's disease
CPT/HCPCS: 36415; 51701; 80053; 99284; 74176; 81003; 81015; 85025; 87086

== ENCOUNTER 2019-01-02 14:18 | Inpatient (IN) | payer MEDICARE, MEDICAID, SELFPAY ==
[2019-01-02] VITALS (11 sets, daily range): BP systolic 131–140; BP diastolic 72–120; PULSE 70–88; RESP 14–21; TEMP 36.5–37.9; O2SAT 98–99
--- NOTE | 2019-01-02 15:02 | DI.CT_ITS ---
SYMPTOM/DIAGNOSIS: CHANGE IN MENTAL STATUS , [place]. NONCONTRAST HEAD CT: Comparison is made with 29 November 2018. Atrophy and white matter changes of small vessel disease are again noted. There is an old left basal ganglia, lacunar infarct. No acute infarct, hemorrhage, mass or skull fracture is seen. There is minimal sinus mucosal thickening. IMPRESSION: No acute abnormality.
--- NOTE | 2019-01-02 15:06 | DI.RAD_ITS ---
SYMPTOM/DIAGNOSIS: CHANGE IN MENTAL STATUS PORTABLE CHEST: Comparison is made with 29 November 2018. The heart size is within normal limits. The aorta is tortuous, unchanged. The lungs are suboptimally inflated. No infiltrate, effusion or pulmonary edema is seen. IMPRESSION: Limited exam. No acute abnormality.
--- NOTE | 2019-01-02 15:10 | ED.GENADUL_ITS ---
Discharge Plan Disposition Patient Disposition: [facility] INPATIENT Condition: Fair Discharge Details Chief Complaint: AMS/LOC Clinical Impression: Altered mental status Admit Date/Time: 01/03/19 11:06 Admit Provider: Aristeo De Jesus Attending Provider: Aristeo De Jesus Primary Care Provider: Yazmin Urbina ED Provider: Ryann Douglas Discharge Instructions Forms: Nursing Discharge Form Referrals: Yazmin Urbina [Primary Care Provider] - Discharge Data Discharge Date/Time-TO BE ENTERED AT DEPARTURE: 01/02/19 19:26 Medical Decision Making <ELMA Millan - Last Filed: 01/04/19 20:45> This patient presents for the second evaluation in 1 week. Initially was seen earlier this week for urinary retention. Per the son at the bedside who is also the pantry goods worker at home with assistance of nurses aide reports increase in agitation and change from his baseline in the last week. Patient has been complaining of headache. No obvious falls. Patient increasingly agitated requiring additional assistance to transfer from bed to seat. Nurses aides also reported change from the baseline to his son and they recommended he come to the ER for further evaluation. Patient has no obvious fevers or chills. Has been eating and drinking. No significant change in urination. No foul over to the urination. Has been incontinent of stool x1 this week. Patient has no complaints of pain in chest or abdomen. Patient has been complaining of headaches this week. On exam patient oriented to person and place. Patient is extremely pleasant at this time. Urine culture reviewed from previous visit which is unremarkable for obvious infection. Son at bedside does report minimal compliance with the antibiotic as it is difficult to take 4 times daily. Initial lab evaluation is unremarkable for significant change. Patient pending head CT and chest x-ray. Spoke with oil field caser who is aware of the family concerns and ultimate potential need for placement for additional services. Patient pending medical clearance and head CT. Signed out to next provider <ELMA Sanchez - Last Filed: 01/02/19 21:12> Care transition to myself with imaging pending. Patient seems to be increasingly agitated from providers for initial assessment. He was refusing chest x-ray when I first saw him. I was able to calm him down and he was agreeable to continued work-up. Does not seem angry, is not aggressive, is trying to go home but appears clearly confused. Patient has history of GERD, Parkinson's seizure disorder, tremors mostly, prostate cancer, TIA. Labs reviewed. White count 3.55, he has been low intermittently in the past. He was normal. BUN is elevated 21, the patient. Normal creatinine and GFR, AST and ALT are both slightly low, for the patient. Urine was obtained, patient does have trace ketones, positive for protein, negative nitrites, negative leukocyte esterase. She denies CTA reviewed by radiologist : fINDINGS: Brain: There is no acute hemorrhage, mass effect, or extra-axial fluid collections. The cortical sulci are diffusely prominent slightly worsen average for age. There is severe periventricular hypodensity. There is also small areas of hypodensity in the white matter deep to the insula bilaterally. There is a 5 mm hypodensity consistent with old infarct at the outer age of the head of the caudate nucleus on the right. Ventricles: The ventricles are within normal limits for age. Bones/joints: Unremarkable. No acute fracture. Sinuses: Visualized sinuses are unremarkable. No fluid levels. Mastoid air cells: Visualized mastoid air cells are well aerated. Soft tissues: Unremarkable. IMPRESSION: 1. No evidence of acute infarct. 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 Severe chronic small vessel ischemic changes worse than average for age. CXR reviewed: FINDINGS: Lungs: Inspiration is slightly suboptimal. There appears to be some bony density obscuring a tiny portion of the medial apex of the right lung most likely just the mandible due to head position. Pleural space: Unremarkable. No pleural effusion. No pneumothorax. Heart/Mediastinum: Unremarkable. No cardiomegaly. Vasculature: There is moderate ectasia of thoracic aorta. Bones/joints: There appears to resection of a small portion of the distal clavicle. IMPRESSION: Chronic changes but no acute cardiopulmonary process. Discussed these findings with the patient and his son. As the patient is unsafe to go home, is clearly confused, feel that admission is appropriate. We did speak with the progressive care manager who will be involved in patient's care and hopefully further placement for better home care environment. Patient and son report that he is a DNR/DNI. Son reports that since he is the patient's 's passing, he is continued to decline particularly in regard to his confusion. He has been immobile for approximately the past 5 years and associates this with his parkinsonianism. Consulted with hospitalist regarding admission for altered mental status, continued evaluation and hopeful placement into an assisted living home. Family is in agreement this plan. HPI <ELMA Millan - Last Filed: 01/04/19 20:45> General Date/Time Provider Initiated Documentation: 01/02/19 14:22 . HPI Narrative: Patient presents for worsening agitation per family at the bedside. Patient lives at home with assistance of nurses aides. Patient was seen in the ER 2 days ago for urinary retention. Began on Keflex which he is minimally compliant with. Per family patient is in the last week having significant changes in agitation and clear thought. Patient is complaining of headaches this week. No obvious falls. Having difficulty transferring at home which he typically can do independently. No obvious fevers, chills, nausea, vomiting. Patient has had loose stool. Patient is alert and oriented to person place and time in this moment although family reports he waxes and wanes. Denies abdominal pain. Denies chest pain or difficulty breathing. Related Data Home Medications Medication Instructions Recorded Confirmed carbidopa-levodopa [Sinemet CR] 1 tab-cap PO BID #90 tab-cap 10/08/13 01/02/19 ropinirole 1 mg PO DAILY 06/29/17 01/02/19 calcium carbonate [Calcium 500] 500 mg PO BID #30 tab 04/19/18 01/02/19 cephalexin [Keflex] 500 mg PO QID 7 Days #28 cap 12/30/18 01/02/19 lorazepam [Ativan] 0.5 mg PO DAILY PRN 12/30/18 01/02/19 oxybutynin chloride 10 mg PO DAILY 12/30/18 01/02/19 pravastatin 20 mg PO DAILY 12/30/18 01/02/19 Previous Rx's Medication Instructions Recorded calcium carbonate [Calcium 500] 500 mg PO BID #30 tab 04/19/18 cephalexin [Keflex] 500 mg PO QID 7 Days #28 cap 12/30/18 Allergies Allergy/AdvReac Type Severity Reaction Status Date / Time Sulfa (Sulfonamide AdvReac Mild GI/diarrhea Verified 01/02/19 14:32 Antibiotics) General Stated Complaint: AMS/LOC BANDAR: 2 Review of Systems <ELMA Millan - Last Filed: 01/04/19 20:45> Review of Systems Narrative: CONSTITUTIONAL: The patient denies fevers, chills. CARDIAC: Denies chest pain, SOB. RESPIRATORY: Denies cough, sputum. Denies difficulty breathing. GASTROINTESTINAL: Denies abdominal pain. Mild loose stool. No vomiting or nausea. GENITOURINARY: Denies dysuria, or frequency of urination. MUSCULOSKELETAL: Denies Joint pain, gait changes. Difficulty transfering NEUROLOGIC: Headache present. Denies focal weakness. Denies numbness. INTEGUMENT: Denies rashes. PSYCHIATRIC: Agitation and behavior changes. Denies anxiety or depression. ENDOCRINOLOGY: Denies fatigue. PSYCHIATRY: Denies depression, agitation or anxiety ROS Unobtainable: All systems reviewed & are unremarkable except as noted in HPI and below and Unobtainable due to PFSH <ELMA Millan - Last Filed: 01/04/19 20:45> Medical History Cystitis (Acute) GERD (gastroesophageal reflux disease) (Chronic) Parkinsonism (Chronic) Prostate cancer (Chronic) Renal calculus, left (Chronic) TIA (transient ischemic attack) (Acute) Urinary retention (Acute) Surgical History History of appendectomy (Chronic) History of hernia repair (Chronic) inguinal hernia repair History of knee replacement (Chronic) right knee (Dr. Hernandez) S/P carpal tunnel release (Acute) S/P rotator cuff repair (Acute) 09/13/2015, Dr. Hernandez; R. rotator cuff repair w/ excision of distal clavicle and biceps tenolysis Social History Smoking/Tobacco Use Status: Former Tobacco Use Alcohol Intake: former Drug use: Never Substance use type: does not use Do you feel safe at home: Yes Do you feel safe in your relationship?: Yes Exam <ELMA Millan - Last Filed: 01/04/19 20:45> Narrative Exam Narrative: CONST: Patient in no acute distress. Well hydrated. Alert and alert to person and place. HENMT: Head nomocephalic, normal to inspection. Atraumatic. Hearing grossly normal. EYES: General normal appearance. Alignment normal. Eyelids normal. Conjunctiva normal. Mild photosensitivity NECK: Normal visual inspection. FROM. Trachea midline. No Midline tenderness. CHEST: Normal insepection of the chest. RESP: Normal respiratory effort. Speaking full sentences. No cough. No audible wheezing. No retractions. CARDIO: No JVD. Abdomen: Soft and nontender. MUSCULOSKELETAL: Normal Gait. FROM of all extremities. No back pain with palpation. No CVA tenderness. SKIN: Normal. Dry. No rashes. NEURO: Alert and awake. Speech clear. Alert and oriented x 3. Speech is clear. Cranial nerves intact as tested III - XI. Abnormal [id number] test. No Nystagmus. Gait normal. Strength intact in all extremities. Sensation intact in all extremities. Coordination difficulty at the bedside PSYCH: Normal affect. Cooperative. Course <ELMA Millan - Last Filed: 01/04/19 20:45> Vital Signs Vital signs: Vital Signs Respiratory Rate 14 01/02/19 14:16 Blood Pressure 133/120 H 01/02/19 14:16 Temperature 36.5 C 01/02/19 14:26 Temperature Source Tympanic 01/02/19 14:26 Pulse 85 01/02/19 14:32 Pulse 75 01/02/19 14:32 Respiratory Rate 16 01/02/19 14:32 Respiratory Effort Non-Labored 01/02/19 14:31 Blood Pressure 131/81 01/02/19 14:32 Blood Pressure Mean 92 01/02/19 14:32 Blood Pressure Position Sitting 01/02/19 14:26 Pulse Oximetry 99 01/02/19 14:26 Oxygen Delivery Method Room Air 01/02/19 14:26 Oxygen Flow Rate 0 01/02/19 14:26 Comment 01/02/19 14:26 Sign Out <ELMA Millan - Last Filed: 01/04/19 20:45> Sign Out Data: Sign Out Comment: Signed out pending head CT and ultimately disposition. Patient is increasingly agitated and complaining of headache for the last week. Family unable to care for patient at home. Last updated by Skye Clarke PA at 01/02/19 16:41
[2019-01-02] MEDS: Normal Saline 1,000 ML 1000 ML IV (15:15)
[2019-01-02 15:28] LABS: Lactate 0.8 mmol/L (0.6-1.4)
[2019-01-02 15:30] LABS: Absolute Basophil Count 0.01 k/cumm (0.0-0.2); Absolute Eosinophil Count 0.13 k/cumm (0.0-0.7); Absolute Lymphocyte Count 1.08 k/cumm (1.2-3.4); Absolute Monocyte Count 0.32 k/cumm (0.11-0.7); Absolute Neutrophil Count 2.01 k/cumm (1.2-6.7); Basophils % 0.3; Eosinophils % 3.7; HCT 43.7 % (40.0-50.0); HGB 14.7 g/dL (13.5-17.5); Lymphocytes % 30.4; Mean Corp. HGB Concentration 33.6 g/dL (32.0-36.0); Mean Corpuscular Hemoglobin 31.5 pg (27.0-33.0); Mean Corpuscular Volume 93.6 fL (80-95); Mean Platelet Volume 9.6 fL (8.0-11.0); Neutrophils % 56.6; Platelet Count 249 x1000/uL (130-400); RBC 4.67 m/cumm (4.50-6.00); RBC Distribution Width 13.1 % (11.8-14.1); White Blood Cell Count 3.55 k/cumm (4.4-10.8)
[2019-01-02 15:47] LABS: PTT Activated 22.3 sec (21.0-31.4); Prothrombin Time 10.3 sec (9.3-11.0)
[2019-01-02 15:50] LABS: AST 14 U/L (15-37); Albumin 3.6 g/dL (3.4-5.0); Alkaline Phosphatase 78 U/L (46-116); Anion Gap 7.6 mmol/L (3-11); BUN 21 mg/dL (7-18); Bilirubin, Total 0.7 mg/dL (0.2-1.0); CO2 27.4 mmol/L (21.0-32.0); CREATININE 0.98 mg/dL (0.70-1.30); Calcium 8.5 mg/dL (8.5-10.1); Chloride 107 mmol/L (98-107); Glucose 110 mg/dL (70-100); Potassium 4.1 mmol/L (3.5-5.1); Sodium 142 mmol/L (136-145); Total Protein 6.2 g/dL (6.4-8.2)
[2019-01-02 16:00] LABS: ALT 7 U/L (16-63)
[2019-01-02] MEDS: Lidocaine 2% Jelly 6 ML SYR (16:00)
[2019-01-02 16:10] LABS: Bilirubin Small (Negative); Blood Trace-intact (Negative); Clarity Clear (Clear); Glucose Negative (Negative); Ketones Trace mg/dL (Negative); Leukocyte Esterase Negative (Negative); Nitrite Negative (Negative); Specific Gravity >= 1.030 (1.005-1.025); pH 5.5 (5-8)
[2019-01-02 16:18] LABS: Bacteria Few HPF (Negative); C & S Indicated? No; Casts Negative LPF (Negative); Crystals Negative HPF (Negative); Epithelial Cells Rare HPF (Negative); Mucus Moderate (Negative); Other Cells Negative (Negative)
--- NOTE | 2019-01-02 16:41 | DI.VRAD_ITS ---
EXAM: CT Head Without Contrast EXAM DATE/TIME: 01/02/2019 3:04 PM CLINICAL HISTORY: 83 years old, male; Other: Change in mental status TECHNIQUE: Imaging protocol: Computed tomography of the head without contrast. Radiation optimization: All CT scans at this facility use at least one of these dose optimization techniques: automated exposure control; mA and/or kV adjustment per patient size (includes targeted exams where dose is matched to clinical indication); or iterative reconstruction. COMPARISON: CT HEAD CERVICAL SPINE WO 11/29/2018 4:36 PM FINDINGS: Brain: There is no acute hemorrhage, mass effect, or extra-axial fluid collections. The cortical sulci are diffusely prominent slightly worsen average for age. There is severe periventricular hypodensity. There is also small areas of hypodensity in the white matter deep to the insula bilaterally. There is a 5 mm hypodensity consistent with old infarct at the outer age of the head of the caudate nucleus on the right. Ventricles: The ventricles are within normal limits for age. Bones/joints: Unremarkable. No acute fracture. Sinuses: Visualized sinuses are unremarkable. No fluid levels. Mastoid air cells: Visualized mastoid air cells are well aerated. Soft tissues: Unremarkable. IMPRESSION: 1. No evidence of acute infarct. 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 Severe chronic small vessel ischemic changes worse than average for age. Dictated and Authenticated by: Jamil Sahu MD. Ordering:ZHEN Cheung MD
--- NOTE | 2019-01-02 17:14 | DI.VRAD_ITS ---
EXAM: XR Chest, 1 View EXAM DATE/TIME: 01/02/2019 4:50 PM CLINICAL HISTORY: 83 years old, male; Other: Change in mental status TECHNIQUE: Imaging protocol: XR of the chest Views: 1 view. COMPARISON: SC XR CHEST 2V PA LATERAL 11/29/2018 4:29 PM FINDINGS: Lungs: Inspiration is slightly suboptimal. There appears to be some bony density obscuring a tiny portion of the medial apex of the right lung most likely just the mandible due to head position. Pleural space: Unremarkable. No pleural effusion. No pneumothorax. Heart/Mediastinum: Unremarkable. No cardiomegaly. Vasculature: There is moderate ectasia of thoracic aorta. Bones/joints: There appears to resection of a small portion of the distal clavicle. IMPRESSION: Chronic changes but no acute cardiopulmonary process. Dictated and Authenticated by: Jamil Sahu MD. Ordering:ZHEN Cheung MD
--- NOTE | 2019-01-02 17:34 | CMPROGNOTE_ITS ---
- If Service Date Differs Date of service: 01/02/19 Time of Service: 17:34 Care Management Progress Note S/O: JT met with Rodolfo's son Renny at the bedside and with Rodolfo. Renny is concerned that he is not able to provide enough care to his Father at home. Rodolfo has seemed more confused lately and has been to the ED twice this week. Rodolfo is bed and wheelchair bound, he does have Parkinson like symptoms. Renny states there have been several days this week Rodolfo has not taken his medications well. Rodolfo becomes confused in the evening and startles easy. Renny states that he is not aggressive. Renny would like Rodolfo to have a few weeks in a nursing facility to monitor him and get him a little stronger so that he can continue to care for him at home. Rodolfo does have home health services including nursing and [facility]. He would benefit from palliative care while he is ad mitted. He made several statements to his son that he is tired and does not want to keep going. His spouse of 60 years in July and he tells this CM that he misses her a great deal. Rodolfo and his Son agree he needs to be at the hospital for at least observation. Rodolfo does have an advance directive on file that states he does not want CPR and does not want to be intubated. TJ has provided this to the ED provider. P: Rodolfo will be admitted, CM will meet with him and his son on Sunday discharge planning and disposition. JT has faxed a referral to [facility] at the request of the patient and family.
--- NOTE | 2019-01-02 22:01 | W.PM.HP.N ---
Date of service: 01/02/19 Time of Service: 22:01 Assessment and Plan Assessment and plan (1) Parkinsonism: Status: Chronic Assessment and plan: consult neurology to assess adequacy of his current medication treatment; continue home meds for now. Qualifiers: Parkinsonism type: Parkinson's disease Qualified Code(s): G20 - Parkinson's disease (2) Dementia: Status: Chronic Assessment and plan: trial of Seroquel. I realize that there is a potential for worsening extra pyramidal side effects and worsening of his Parkinsonism tremors however his agitation is such that he has become unmanageable at home and I think that a trial of low dose Seroquel may be justified. However, I will ask neurology to assess his Parkinson treatment including evaluation and treatment of his dementia and agitation. Meanwhile CM will be working w/ the family on placement for detention care. Qualifiers: Dementia type: Parkinson's disease Dementia behavioral disturbance: with behavioral disturbance Qualified Code(s): G20 - Parkinson's disease; F02.81 - Dementia in other diseases classified elsewhere with behavioral disturbance History of Present Illness History of Present Illness Chief Complaint: agitation, difficulty in maintaining care at home Narrative: 83 yr old male w/ PMH of TIA's, Parkinsonism, urinary retention and prostate CA s/p radiation treatments and GERD who was brought to the ER by his son because of increased agitation and worsening demential although he has no formal diagnosis of dementia. The patient is cared for at home by his son w/ the helpf of a caregiver. The patient has had no recent falls and no fevers. He was evaluate in the ER on 12/30/2018 for acute urinary retention but his UA did not support a diagnosis if UTI, nevertheless he was placed on 7 day course of Keflex per chance that he might develope a UTI from the straight catheterization he received while in the ER. CT at the time showed some blader wall thickening c/w cystitis, and nonobstructing L upper pole renal calculus 3 mm. His family is concerned that he can no longer be managed at home because of his worsening behavior w/ increased restleness and agitation Workup in the ER included CTA of the head that showed no acute infarct but old R. basal ganglia infarct and severe chronic small vessel ischemic changes that are worse than expected for his age. CXR showed no acute cardiopulmonary findings. CBC and CMP were unremarkable. UA demonstrates a SG >1.030 suggesting some dehydration. Proteinuria of 100 mg/dL, trace of ketones, trace of blood but negative for nitrites or leukocyte esterase. CM is working with the family on placement. The patient is now admitted on observation status for declining ADL performance and worsening agitation probably from dementia related to his Parkinsonism. Review of Systems Review of Systems ROS Unobtainable: Unobtainable due to mental condition [facility] Medical History Cystitis (Acute) GERD (gastroesophageal reflux disease) (Chronic) Parkinsonism (Chronic) Prostate cancer (Chronic) Renal calculus, left (Chronic) TIA (transient ischemic attack) (Acute) Urinary retention (Acute) Surgical History History of appendectomy (Chronic) History of hernia repair (Chronic) inguinal hernia repair History of knee replacement (Chronic) right knee (Dr. Hernandez) S/P carpal tunnel release (Acute) S/P rotator cuff repair (Acute) 09/13/2015, Dr. Hernandez; Caleb. rotator cuff repair w/ excision of distal clavicle and biceps tenolysis Social History Smoking/Tobacco Use Status: Former Tobacco Use Alcohol Intake: former Drug use: Never Substance use type: does not use Do you feel safe at home: Yes Do you feel safe in your relationship?: Yes Meds Home Medications and Allergies Home Medications Medication Instructions Recorded Confirmed Type carbidopa-levodopa [Sinemet CR] 1 tab-cap PO BID #90 tab-cap 10/08/13 01/02/19 History ropinirole 1 mg PO DAILY 06/29/17 01/02/19 History calcium carbonate [Calcium 500] 500 mg PO BID #30 tab 04/19/18 01/02/19 Rx cephalexin [Keflex] 500 mg PO QID 7 Days #28 cap 12/30/18 01/02/19 Rx lorazepam [Ativan] 0.5 mg PO DAILY PRN 12/30/18 01/02/19 History oxybutynin chloride 10 mg PO DAILY 12/30/18 01/02/19 History pravastatin 20 mg PO DAILY 12/30/18 01/02/19 History Allergies Allergy/AdvReac Type Severity Reaction Status Date / Time Sulfa (Sulfonamide AdvReac Mild GI/diarrhea Verified 01/02/19 14:32 Antibiotics) Exam Const General: anxious and disheveled Nutritional Appearance: underweight Orientation: alert, awake, oriented to person, not oriented to place, not oriented to time and confused [facility] Head: normal to inspection, no palpable skull fracture, normocephalic and atraumatic Ears: hearing grossly normal bilaterally, external ears normal and TM normal on the left General nose exam: external nose normal and nares normal Face and sinus: normal facial exam Mouth: oral mucosae normal, lip normal, tongue normal and oropharynx normal Teeth and gingiva: edentulous Eyes General: appearance normal, both eyes and all related structures Alignment and Position: alignment normal Periorbital: periorbital findings normal Eyelids: eyelids normal Conjunctivae: conjunctivae normal Sclera: sclerae normal Cornea: corneas normal Pupils: PERRL EOM: EOM intact bilaterally Resp Effort & Inspection: normal respiratory effort and able to speak in complete sentences Auscultation: clear to auscultation bilaterally Cardio Jugular venous pressure: no JVD Palpation: normal PMI Rate: regular rate Rhythm: regular rhythm Bruits: no abdominal aortic bruits and no carotid bruits Pulses: posterior tibial pulses present bilaterally diminished and dorsalis pedis pulses present bilaterally diminished GI Inspection: normal to inspection Palpation: soft and no hepatosplenomegaly Percussion: normal to percussion Auscultation: normal bowel sounds Skin General skin exam: erythema (over both feet) and excoriation(s) Neuro General: alert, awake, oriented Patient Orientation: Person and Confused, moves all extremities and no focal motor deficits Cranial Nerves: PERRL, EOM intact bilaterally, no nystagmus, facial strength normal, tongue midline, able to rotate head bilaterally and able to elevate shoulders bilaterally Cognition: normal cognition Speech: speech normal Motor: movement abnormality noted akathisia and tremor (both hands) Extrem Right lower extremity: foot Details: abnormal to inspection Details: erythematous and no edema Left lower extremity: foot Details: abnormal to inspection Details: erythematous and no edema Psych Appearance: disheveled Speech and Movement: agitated and speech clear Mood: anxious mood Affect: anxious affect Attitude: cooperative Thought Process: loose association and tangential Thought Content: ideas of reference Insight: poor Judgment: poor Results Labs Result diagrams: 01/02/19 15:15 01/02/19 15:15 Labs: Laboratory Results - last 24 hr 01/02/19 01/02/19 01/02/19 15:15 15:15 15:15 WBC 3.55 L RBC 4.67 Hgb 14.7 Hct 43.7 MCV 93.6 MCH 31.5 MCHC 33.6 RDW 13.1 Plt Count 249 MPV 9.6 Immature Gran % 0.0 Neutrophils % 56.6 Lymphocytes % 30.4 Monocytes % 9.0 Eosinophils % 3.7 Basophils % 0.3 Absolute Neutrophils 2.01 Absolute Lymphocytes 1.08 L Absolute Monocytes 0.32 Absolute Eosinophils 0.13 Absolute Basophils 0.01 PT INR APTT Sodium 142 Potassium 4.1 Chloride 107 Carbon Dioxide 27.4 Anion Gap 7.6 BUN 21 H Creatinine 0.98 Estimated GFR/1.73 m2 >= 60.00 Glucose 110 H Lactate 0.8 Calcium 8.5 Total Bilirubin 0.7 AST 14 L ALT 7 L Alkaline Phosphatase 78 Total Protein 6.2 L Albumin 3.6 Urine Color Urine Clarity Urine pH Ur Specific [place] Urine Protein Urine Ketones Urine Blood Urine Nitrite Urine Bilirubin Urine Urobilinogen Ur Leukocyte Esterase Urine RBC Urine WBC Ur Epithelial Cells Urine Crystals Urine Bacteria Urine Casts Urine Mucus Urine Other Ur Culture Indicated? Urine Glucose 01/02/19 01/02/19 15:15 15:59 WBC RBC Hgb Hct MCV MCH MCHC RDW Plt Count MPV Immature Gran % Neutrophils % Lymphocytes % Monocytes % Eosinophils % Basophils % Absolute Neutrophils Absolute Lymphocytes Absolute Monocytes Absolute Eosinophils Absolute Basophils PT 10.3 INR 1.0 APTT 22.3 Sodium Potassium Chloride Carbon Dioxide Anion Gap BUN Creatinine Estimated GFR/1.73 m2 Glucose Lactate Calcium Total Bilirubin AST ALT Alkaline Phosphatase Total Protein Albumin Urine Color Yellow Urine Clarity Clear Urine pH 5.5 Ur Specific [place] >= 1.030 H Urine Protein 100 H Urine Ketones Trace H Urine Blood Trace-intact H Urine Nitrite Negative Urine Bilirubin Small H Urine Urobilinogen 1.0 H Ur Leukocyte Esterase Negative Urine RBC 10-20 H Urine WBC 3-5 Ur Epithelial Cells Rare Urine Crystals Negative Urine Bacteria Few Urine Casts Negative Urine Mucus Moderate Urine Other Negative Ur Culture Indicated? No Urine Glucose Negative Last Vital Signs Temp 37.9 C H 01/02/19 20:55 Pulse 88 01/02/19 20:55 Resp 20 01/02/19 20:55 BP 131/81 01/02/19 19:18 Pulse Ox 99 01/02/19 19:18
[2019-01-02] MEDS: QUEtiapine 25 MG TAB PO (23:04)
[2019-01-02] MEDS: Normal Saline 1,000 ML 85 ML IV (23:10)
[2019-01-03 07:15] VITALS: BP 146/78; PULSE 78; RESP 17; TEMP 36.4; O2SAT 97
[2019-01-03] MEDS: Carbidopa 50/Levodopa 200 CR TABCR 1 TAB PO ×2 (08:51→21:15)
[2019-01-03] MEDS: Enoxaparin 40 MG/0.4 ML SYR SC (09:23)
--- NOTE | 2019-01-03 09:26 | PHARADMIT ---
Addendum entered by Thad Donahue III 01/05/19 10:20: Pharmacy Note Subjective Question remains regarding whether he has Parkinson vs Parkinsonism. Nearing end-stage with Dementia. Hospice consult tomorrow. Objective No VS recorded, Labs stable to unchanged. No BM recorded yet for this stay. Assessment Serrenaldo dc'd yesterday, Ropinirole increased to BID, Trazoodone added. [facility] Addendum entered by Thad Donahue III 01/04/19 11:09: Pharmacy Note Subjective Patient continues to . Son can no longer take care of him.. CM working towards SNF placement Objective VS-Ok BP-163/75 HR-52 Labs-WNL, Mag-1.7 Wgt-65.3 kg No BM yet Assessment Got Mag bolus (4GM) Home meds ordered Lovenox for DVT proph Plan Transfer to [facility] on Sunday (bed available) Addendum entered by Thad Donahue III 01/03/19 09:32: AMS: PARKINSON'S, dementia ?? vs depression ( in July), ? UTI Original Note: Admission Pharmacy Clinical Review AMS Code Status DNR/DNI Current Weight Wgt-66.7 kg Renally Cleared and Narrow Therapeutic Index Meds CrCl~ 55 mL/min Meds-OK QTc Value / Action Taken QTc-432 NA BP Control, Fever BP- 146/78 Tmax- 36.4 Electrolytes reviewed Na- 142 K+4.1 DVT Prophylaxis Lovenox 40mg Opiate Usage / Scheduled Bowel Regimen Ordered No Yes Plt/SCr for Heparin / Enoxaparin Plts- 249 SCr-0.98 INR for Warfarin inr-1.0 H/H stable, WBC/Bands H&H- 14.7/43.7 WBC-3.55 Antibiotic appropriateness none Cultures and Sensitivities Urine-Pending Surgical ABX d/c within 24 hr NA DM control / Insulin Dosing BG- 110 Heart Failure (Check EF%) (FATUMA's, B-Block, Diuretics) none IV to PO Switch No Home Meds Reviewed Yes Home Meds Not Ordered Keflex, M-Vites Comments
[2019-01-03 10:31] LABS: HCT 38.5 % (40.0-50.0); HGB 13.1 g/dL (13.5-17.5); Mean Corpuscular Hemoglobin 31.5 pg (27.0-33.0); Mean Corpuscular Volume 92.5 fL (80-95); Mean Platelet Volume 9.6 fL (8.0-11.0); Platelet Count 225 x1000/uL (130-400); RBC 4.16 m/cumm (4.50-6.00); RBC Distribution Width 12.9 % (11.8-14.1); White Blood Cell Count 4.16 k/cumm (4.4-10.8)
--- NOTE | 2019-01-03 12:39 | PGE_ITS ---
Date of Service Date of service: 01/03/19 Time of Service: 12:39 Assessment and Plan Assessment and plan (1) Failure to thrive: Start date: 01/03/19 Start time: 13:43 Status: Acute Assessment and plan: Per son over last 2 weeks, decreased appetite, not drinking, not wanting to toilet. Apporx 13 lb weight loss in last month. Refusing to take pills and stating I want to . Recently last in July. Depression worsening. Palliative care consulted and psychiatry consulted. Ensure added to all meals and continue IVF at this time. Continue to monitor. (2) Depression: Start date: 01/03/19 Start time: 13:45 Status: Chronic Assessment and plan: Per son will start weeping at times and not talk about why. FTT see above. (3) Parkinsonism: Start date: 01/03/19 Start time: 13:45 Status: Chronic Assessment and plan: Tremulous when sitting still. Could be a component of parkinson, exacerbated by depression. Currently on siemet. Also has not been compliant with his medication. Qualifiers: Parkinsonism type: Parkinson's disease Qualified Code(s): G20 - Parkinson's disease (4) Ambulatory dysfunction: Start date: 01/03/19 Start time: 13:53 Status: Acute Assessment and plan: Son states unable to walk in 5 or more years. However not wanting to get out of bed lately. (5) GERD (gastroesophageal reflux disease): Start date: 01/03/19 Start time: 13:52 Status: Chronic Assessment and plan: Protonix IVP (6) DVT prophylaxis: Start date: 01/03/19 Start time: 13:54 Status: Acute Assessment and plan: Enoxaparin Above findings were discussed with Dr. Lewis who is in agreement. Subjective Subjective Interval history since last seen: Patient tries to talk about how he feels, tremors become worse and he gets frustrated. Per son patient has been pushing pills away and not taking them over last couple months, worsening over the the last 2 weeks. He is no longer making an effort to use the bathroom becoming more incontinent. He has been weepy and stating he wants to to his son. His passed in July; though he has really started to decline over the last two weeks. He appears depressed just lying in bed, he did not eat but three bites of breakfast this am and shows no ambition to thrive. Reviewing his chart it appears he has had a 13 lb weight loss over the last 3 weeks -1 month. He is Failure to thrive at this point. Psychiatry and palliative have been consulted. I will hold off on neurology at this time until patients wishes are known and goals of care are met. He did have parkinsonian like tremors and was agitated last night, but I do think his symptoms are worse from possible underlying depression. We will continue to monitor and wait for palliative and psych to consult. Exam Const General: no acute distress and frail appearing Orientation: alert, awake and oriented x3 Other: at time altered and agitated Eyes Pupils: PERRL Neck Lymphatic: no lymphadenopathy noted Chest Chest: normal inspection of the chest Resp Effort & Inspection: normal respiratory effort and able to speak in complete sentences Auscultation: clear to auscultation bilaterally Cardio Jugular venous pressure: no JVD Palpation: normal PMI Rate: regular rate Rhythm: regular rhythm Heart Sounds: S1 normal and S2 normal GI Palpation: soft and no hepatosplenomegaly Auscultation: hypoactive bowel sounds Back/Spine/Pelvis Back: no CVA tenderness Skin General skin exam: no rashes or lesions noted Neuro Speech: other Other: tremulous when lying still, voice shaky Psych Mental Status: other (depressed) Mood: other (depressed) Affect: blunted Attitude: cooperative Thought Process: circumstantial Insight: poor Judgment: poor Objective Objective Clinical Data: Abnormal lab results 01/02/19 01/02/19 01/02/19 Range/Units 15:15 15:15 15:59 WBC 3.55 L (4.4-10.8) k/cumm RBC (4.50-6.00) m/cumm Hgb (13.5-17.5) g/dL Hct (40.0-50.0) % Absolute Lymphocytes 1.08 L (1.2-3.4) k/cumm BUN 21 H (7-18) mg/dL Glucose 110 H (70-100) mg/dL AST 14 L (15-37) U/L ALT 7 L (16-63) U/L Total Protein 6.2 L (6.4-8.2) g/dL Ur Specific [place] >= 1.030 H (1.005-1.025) Urine Protein 100 H (Negative) mg/dL Urine Ketones Trace H (Negative) mg/dL Urine Blood Trace-intact H (Negative) Urine Bilirubin Small H (Negative) Urine Urobilinogen 1.0 H (Up TO 0.2) EU/dL Urine RBC 10-20 H (0-2) 01/03/19 Range/Units 10:18 WBC 4.16 L (4.4-10.8) k/cumm RBC 4.16 L (4.50-6.00) m/cumm Hgb 13.1 L (13.5-17.5) g/dL Hct 38.5 L (40.0-50.0) % Absolute Lymphocytes (1.2-3.4) k/cumm BUN (7-18) mg/dL Glucose (70-100) mg/dL AST (15-37) U/L ALT (16-63) U/L Total Protein (6.4-8.2) g/dL Ur Specific [place] (1.005-1.025) Urine Protein (Negative) mg/dL Urine Ketones (Negative) mg/dL Urine Blood (Negative) Urine Bilirubin (Negative) Urine Urobilinogen (Up TO 0.2) EU/dL Urine RBC (0-2) Vital Signs Temperature 36.4 C L 01/03/19 07:15 Temperature Source Tympanic 01/03/19 07:15 Pulse 78 01/03/19 07:15 Pulse Rhythm Regular 01/02/19 20:55 Pulse 75 01/02/19 14:32 Respiratory Rate 17 01/03/19 07:15 Respiratory Effort Non-Labored 01/03/19 05:31 Respiratory Depth Normal 01/02/19 20:55 Respiratory Pattern Normal 01/02/19 20:55 Blood Pressure 146/78 H 01/03/19 07:15 Blood Pressure Mean 92 01/02/19 14:32 Blood Pressure Position Sitting 01/02/19 14:26 Pulse Oximetry 97 01/03/19 07:15 Oxygen Delivery Method Room Air 01/03/19 07:15 Oxygen Flow Rate 0 01/03/19 07:15 Pain Level 0 01/02/19 23:45 Comment 01/03/19 07:15 Intake & Output 09/12/19 09/13/19 09/13/19 23:59 11:59 23:59 Intake Total 1250 / 1250 Output Total 60 / 60 Balance 1190 / 1190 Weight 69.5 kg 66.7 kg Intake: IV 1250 / 1250 Output: Urine / Other: Urine Color Yellow Pale Yellow Urine Appearance Clear Clear Voiding Methods Diaper Laboratory Results WBC 4.16 k/cumm (4.4-10.8) L 01/03/19 10:18 RBC 4.16 m/cumm (4.50-6.00) L 01/03/19 10:18 Hgb 13.1 g/dL (13.5-17.5) L 01/03/19 10:18 Hct 38.5 % (40.0-50.0) L 01/03/19 10:18 MCV 92.5 fL (80-95) 01/03/19 10:18 MCH 31.5 pg (27.0-33.0) 01/03/19 10:18 MCHC 34.0 g/dL (32.0-36.0) 01/03/19 10:18 RDW 12.9 % (11.8-14.1) 01/03/19 10:18 Plt Count 225 x1000/uL (130-400) 01/03/19 10:18 MPV 9.6 fL (8.0-11.0) 01/03/19 10:18 Immature Gran % 0.0 01/02/19 15:15 Neutrophils % 56.6 01/02/19 15:15 Lymphocytes % 30.4 01/02/19 15:15 Monocytes % 9.0 01/02/19 15:15 Eosinophils % 3.7 01/02/19 15:15 Basophils % 0.3 01/02/19 15:15 Absolute Neutrophils 2.01 k/cumm (1.2-6.7) 01/02/19 15:15 Absolute Lymphocytes 1.08 k/cumm (1.2-3.4) L 01/02/19 15:15 Absolute Monocytes 0.32 k/cumm (0.11-0.7) 01/02/19 15:15 Absolute Eosinophils 0.13 k/cumm (0.0-0.7) 01/02/19 15:15 Absolute Basophils 0.01 k/cumm (0.0-0.2) 01/02/19 15:15 PT 10.3 sec (9.3-11.0) 01/02/19 15:15 INR 1.0 (0.9-1.1) 01/02/19 15:15 APTT 22.3 sec (21.0-31.4) 01/02/19 15:15 Sodium 142 mmol/L (136-145) 01/02/19 15:15 Potassium 4.1 mmol/L (3.5-5.1) 01/02/19 15:15 Chloride 107 mmol/L (98-107) 01/02/19 15:15 Carbon Dioxide 27.4 mmol/L (21.0-32.0) 01/02/19 15:15 Anion Gap 7.6 mmol/L (3-11) 01/02/19 15:15 BUN 21 mg/dL (7-18) H 01/02/19 15:15 Creatinine 0.98 mg/dL (0.70-1.30) 01/02/19 15:15 Estimated GFR/1.73 m2 >= 60.00 (mL/min/1.73m2) 01/02/19 15:15 Glucose 110 mg/dL (70-100) H 01/02/19 15:15 Lactate 0.8 mmol/L (0.6-1.4) 01/02/19 15:15 Calcium 8.5 mg/dL (8.5-10.1) 01/02/19 15:15 Total Bilirubin 0.7 mg/dL (0.2-1.0) 01/02/19 15:15 AST 14 U/L (15-37) L 01/02/19 15:15 ALT 7 U/L (16-63) L 01/02/19 15:15 Alkaline Phosphatase 78 U/L (46-116) 01/02/19 15:15 Total Protein 6.2 g/dL (6.4-8.2) L 01/02/19 15:15 Albumin 3.6 g/dL (3.4-5.0) 01/02/19 15:15 Urine Color Yellow (Yellow) 01/02/19 15:59 Urine Clarity Clear (Clear) 01/02/19 15:59 Urine pH 5.5 (5-8) 01/02/19 15:59 Ur Specific [place] >= 1.030 (1.005-1.025) H 01/02/19 15:59 Urine Protein 100 mg/dL (Negative) H 01/02/19 15:59 Urine Ketones Trace mg/dL (Negative) H 01/02/19 15:59 Urine Blood Trace-intact (Negative) H 01/02/19 15:59 Urine Nitrite Negative (Negative) 01/02/19 15:59 Urine Bilirubin Small (Negative) H 01/02/19 15:59 Urine Urobilinogen 1.0 EU/dL (Up TO 0.2) H 01/02/19 15:59 Ur Leukocyte Esterase Negative (Negative) 01/02/19 15:59 Urine RBC 10-20 (0-2) H 01/02/19 15:59 Urine WBC 3-5 HPF (0-5) 01/02/19 15:59 Ur Epithelial Cells Rare HPF (Negative) 01/02/19 15:59 Urine Crystals Negative HPF (Negative) 01/02/19 15:59 Urine Bacteria Few HPF (Negative) 01/02/19 15:59 Urine Casts Negative LPF (Negative) 01/02/19 15:59 Urine Mucus Moderate (Negative) 01/02/19 15:59 Urine Other Negative (Negative) 01/02/19 15:59 Ur Culture Indicated? No 01/02/19 15:59 Urine Glucose Negative mg/dL (Negative) 01/02/19 15:59
[2019-01-03] MEDS: LORazepam 0.5 MG TAB PO (12:48)
[2019-01-03] MEDS: Acetaminophen 325 MG TAB PO (13:37)
--- NOTE | 2019-01-03 14:29 | INITIAL_ITS ---
- If Service Date Differs Date of service: 01/03/19 Time of Service: 14:30 Care Management Initial Assess REASON FOR HOSPITALIZATION:: AMS, Failure to Thrive PAST MEDICAL HISTORY/PAST SURGICAL HISTORY:: Medical History. Cystitis (Acute). GERD (gastroesophageal reflux disease) (Chronic). Parkinsonism (Chronic). Prostate cancer (Chronic). Renal calculus, left (Chronic). TIA (transient ischemic attack) (Acute). Urinary retention (Acute). Surgical History. History of appendectomy (Chronic). History of hernia repair (Chronic). inguinal hernia repair. History of knee replacement (Chronic). right knee (Dr. Hernandez). S/P carpal tunnel release (Acute). S/P rotator cuff repair (Acute). 09/13/2015, Dr. Hernandez; R. rotator cuff repair w/ excision of distal clavicle and biceps tenolysis PREVIOUS FUNCTIONAL STATUS/SOCIAL/FAMILY SUPPORTS:: Rodolfo lives with his son, Renny, in [place]. He is wheelchair bound and until recently was able to transfer on his own from his bed to his chair, but has had increasing difficulty in the past two weeks, according to Renny. Renny is his primary doggy daycare activities director. Rodolfo's of 60 years in July, and he has been very sad recently because she is no longer here. CURRENT FUNCTIONAL STATUS:: Rodolfo was curled up in bed when CM met with him. He answered when CM asked yes or no questions, but had trouble forming sentences on his own. His son Renny talked with CM extensively about the care he has been giving his father, and he expressed his concern about him needing more care than he can he can provide. Rodolfo had a patient sitter with him who was comforting him, as Rodolfo was becoming visibily upset at times during the conversation. ADVANCE DIRECTIVES:: [place] froylan Lawson, listed as agent Has patient been provided with information about the portal?: Yes Did the patient sign up for the portal?: No (Not interested) CODE STATUS:: DNR/DNI INSURANCE COVERAGE / FINANCIAL ISSUES:: [facility] CURRENT HOME/COMMUNITY SERVICES/EQUIPMENT:: Rodolfo has a wheel chair that he is dependent on. His son, Renny is his director biostatistics caregiver at this time. PRIMARY CARE PHYSICIAN:: Yazmin Urbina POTENTIAL DISCHARGE NEEDS:: Evaluations for further needs, follow up appointments including palliative care. PATIENT/FAMILY EDUCATION NEEDS:: Review of community based supports, discharge plan, discussion of self care needs. ANTICIPATED BARRIERS TO DISCHARGE:: None identified at this time. TRANSPORTATION:: Anticipate Rodolfo will go to [facility] & via wheelchair van. PLAN:: Anticipate Rodolfo will go to [facility] & via wheelchair van early next week following palliative and psych consults. CM will continue to follow.
--- NOTE | 2019-01-03 14:33 | CHAPLAIN ---
Rodolfo was curled up in bed with a patient sitter providing comfort and being very soothing with Rodolfo. Rodolfo was tired and not talk a lot, and some of what he said was difficult to understand. His Renny aid Rodolfo has not been doing well since his , Nidia, this spring. They were just short of 60 years. It's been like a roller coaster and some days he goes from the very highs to the very lows very, very quickly, Renny explained. Renny has brothers and a sister, who don't live far away, but I'm the one under the same roof, he said and he has been providing care for them for a few years now. Care Management has requested a Palliative Care consult.
[2019-01-03 15:25] VITALS: BP 150/61; PULSE 56; RESP 19; TEMP 37.1; O2SAT 94
[2019-01-03] MEDS: QUEtiapine 25 MG TAB PO (21:15)
[2019-01-03] MEDS: Normal Saline Flush 10 ML SYR IVP (21:15)
[2019-01-03] MEDS: ACETAMINOPHEN 1,000 MG/100 ML BTL 400 MG IVPB (21:15)
[2019-01-04 04:05] VITALS: BP 120/60; PULSE 75; RESP 18; TEMP 37; O2SAT 96
[2019-01-04] MEDS: ACETAMINOPHEN 1,000 MG/100 ML BTL 400 MG IVPB ×3 (06:21→21:36)
[2019-01-04 07:31] LABS: Anion Gap 10.4 mmol/L (3-11); BUN 8 mg/dL (7-18); CO2 23.6 mmol/L (21.0-32.0); CREATININE 0.95 mg/dL (0.70-1.30); Calcium 8.3 mg/dL (8.5-10.1); Chloride 108 mmol/L (98-107); Glucose 87 mg/dL (70-100); Magnesium 1.7 mg/dL (1.8-2.4); Potassium 4.2 mmol/L (3.5-5.1); Sodium 142 mmol/L (136-145)
[2019-01-04] MEDS: Calcium Carbonate 1.25 GM TAB PO ×2 (07:40→19:37)
[2019-01-04] MEDS: Oxybutynin 5 MG TAB 10 MG PO (07:40)
[2019-01-04] MEDS: Pravastatin 20 MG TAB PO (07:40)
[2019-01-04] MEDS: Enoxaparin 40 MG/0.4 ML SYR SC (07:40)
[2019-01-04] MEDS: rOPINIRole 1 MG TAB PO ×2 (07:40→19:37)
[2019-01-04] MEDS: Carbidopa 50/Levodopa 200 CR TABCR 1 TAB PO ×2 (07:40→19:37)
[2019-01-04 08:11] VITALS: BP 163/75; PULSE 52; RESP 18; TEMP 36.1; O2SAT 98
[2019-01-04 08:18] LABS: Absolute Basophil Count 0.01 k/cumm (0.0-0.2); Absolute Eosinophil Count 0.22 k/cumm (0.0-0.7); Absolute Monocyte Count 0.23 k/cumm (0.11-0.7); Absolute Neutrophil Count 3.38 k/cumm (1.2-6.7); Basophils % 0.2; Eosinophils % 4.7; HGB 13.9 g/dL (13.5-17.5); Lymphocytes % 17.2; Mean Corp. HGB Concentration 34.8 g/dL (32.0-36.0); Mean Platelet Volume 9.4 fL (8.0-11.0); Neutrophils % 72.9; Platelet Count 236 x1000/uL (130-400); RBC 4.35 m/cumm (4.50-6.00); RBC Distribution Width 12.8 % (11.8-14.1); White Blood Cell Count 4.64 k/cumm (4.4-10.8)
[2019-01-04] MEDS: MAGNESIUM SULFATE 4 GM/100 ML BAG IVPB (10:09)
[2019-01-04] MEDS: Normal Saline Flush 10 ML SYR IVP ×3 (10:09→21:37)
--- NOTE | 2019-01-04 11:56 | PCNE_ITS ---
Date of service: 01/04/19 History of Present Illness History of Present Illness Chief Complaint: advanced dementia of Parkinson's disease Narrative: I was asked to see Rodolfo for help managing his care and determining his prognosis/diagnosis. I reviewed his medical chart and saw that he has been diagnosed with Parkinson's Disease for a minimum of 6 years; I learned from the hospitalist team that he has taken a significant decline in the past month. His earlier this year and he had started failing after her . As >80% of pts with PD end up with dementia, my working diagnosis is end-stage Parkinson's. He has been on the potential hospice patient list [facility] for the last few weeks. I was due to see him in the outpatient setting next week. He has lost 15 lbs in the last 4-5 weeks. He is refusing to eat and will take only minimal sips. He is WC bound at home, and bedbound as an inpatient. The LNAs caring for him told me that he has been agitated with movement. He is uncooperative and fighting them to clean him up. He has tried to rip off his brief. He alternates between confusion and agitation. Overall, he does best if left alone. He lies mostly in the position, mumbling to himself. With me, he was calm. (He had must been bathed). He did not speak clearly. He allowed me to hold my hand. He seemed as if he wanted to speak, but could not. He did not look to be in pain. He did seem to answer in the affirmative when asked if he wanted to go home. I did not speak to his family. Consults Consult date: 01/04/19 Requesting physician: Joanna Morrow Assessment and Plan Assessment and plan (1) Dementia: Status: Chronic Assessment and plan: linked to his parkinson's disease appears end-stage he would qualify for hospice called hospice team; they will do consult with son prior to discharge Qualifiers: Dementia behavioral disturbance: with behavioral disturbance Dementia type: Parkinson's disease Qualified Code(s): G20 - Parkinson's disease; F02.81 - Dementia in other diseases classified elsewhere with behavioral disturbance (2) Failure to thrive: Status: Acute Assessment and plan: symptomatic of his parkinson's disease dementia grief exacerbated his decline this year (3) Ambulatory dysfunction: Status: Acute Assessment and plan: has not walked for a while, per notes will never become ambulatory part of his advancing PD dementia (4) Parkinson's disease dementia: Status: Acute (5) Encounter for hospice care discussion: Status: Acute (6) Palliative care patient: Status: Acute (7) Unintentional weight loss: Status: Acute Assessment and plan: advised nurses and aides not to push food on him offer it, and if he refuses, allow him to do so advised that this is common in end stage dementia when his son comes in, should update a COLST if none done recently (8) Confusion and disorientation: Status: Acute Review of Systems Constitutional Constitutional: Reports daytime sleepiness, Reports fatigue, Reports poor appetite, Reports weakness and Reports weight loss Eyes Eyes: Reports requires corrective lenses ENT Ears, Nose, Mouth, and Throat: Reports abnormal hearing, Reports dysphagia and Reports dry mouth Cardiovascular Cardiovascular: Reports dyspnea on exertion Respiratory Respiratory: Reports dyspnea on exertion Gastrointestinal Gastrointestinal: Reports dysphagia and Reports early satiety Genitourinary Genitourinary: Reports difficulty urinating and Reports urinary incontinence Musculoskeletal Musculoskeletal: Reports abnormal gait (WC bound at home), Reports atrophy, Reports limited range of motion, Reports muscle weakness and Reports stiffness Integumentary/Breasts Skin/Breast: Reports dry skin Neurologic Neurologic: Reports abnormal hearing, Reports abnormal movements, Reports abnorm al speech, Reports abnormal gait (WC bound at home), Reports behavioral changes, Reports confusion, Reports focal weakness, Reports memory loss, Reports mickie mor(s) and Reports weakness Comments: had a stroke about 5 years ago, some residual left sided weakness Psychiatric Psychiatric: Reports abnormal sleep pattern, Reports behavioral changes, Reports confusion, Reports depression, Reports difficulty concentrating and Reports memory loss Comments: could not ascertain whether he has been having hallucinations speech unclear and minimal Endocrine Endocrine: Reports fatigue Hematologic/Lymphatic Hematologic/Lymphatic: Reports easy bruising [facility] Medical History (Updated 01/05/19 @ 12:09 by Judith Yusuf MD) Confusion and disorientation (Acute) Cystitis (Acute) Encounter for hospice care discussion (Acute) GERD (gastroesophageal reflux disease) (Chronic) Palliative care patient (Acute) Parkinson's disease dementia (Acute) Parkinsonism (Chronic) Prostate cancer (Chronic) Renal calculus, left (Chronic) TIA (transient ischemic attack) (Acute) Unintentional weight loss (Acute) Urinary retention (Acute) Surgical History History of appendectomy (Chronic) History of hernia repair (Chronic) inguinal hernia repair History of knee replacement (Chronic) right knee (Dr. Hernandez) S/P carpal tunnel release (Acute) S/P rotator cuff repair (Acute) 09/13/2015, Dr. Hernandez; R. rotator cuff repair w/ excision of distal clavicle and biceps tenolysis Family History Son No problems noted. Social History (Updated 01/05/19 @ 12:11 by Judith Yusuf MD) Smoking/Tobacco Use Status: Former Tobacco Use Alcohol Intake: former Drug use: Never Substance use type: does not use Caregiver/Support person: Yes Household members: children Housing: house Number of Children: 1 Communication Needs: Hard of Hearing and Corrective Lenses Education Level: high school Do you need help understanding health information?: Always current occupation: retired What is your relationship status?: How often do you talk on the phone with friends or family?: never How often do you get together with friends or relatives?: three or more times per week Panel score (0-1 are the most socially isolated patients): 1 What type of physical activity do you participate in: none and wheelchair-bound Special rachel needs: No Seatbelt use: always Do you feel safe at home: Yes Do you feel safe in your relationship?: Yes Additional Social history: Lives with son who is his caregiver. earlier this year. Health has gone downhill since his 's . Exam Const General: cooperative, no acute distress, disheveled, frail appearing and ill appearing Nutritional Appearance: malnourished and underweight (appears cachectic, ? accurate weight) Orientation: awake and oriented to person [facility] Head: normocephalic and atraumatic Ears: hearing grossly impaired General nose exam: external nose normal Face and sinus: normal facial exam (thick long mcghee; hard to see all of his face) and dry mucous membranes Mouth: muffled voice Eyes Conjunctivae: conjunctivae normal Sclera: sclerae normal Neck Neck: no lymphadenopathy and no JVD Chest Chest: normal inspection of the chest Resp Effort & Inspection: normal respiratory effort Auscultation: clear to auscultation bilaterally and diminished lung sounds Percussion: hyperresonance Cardio Jugular venous pressure: no JVD Rate: regular rate Rhythm: regular rhythm Heart Sounds: S1 normal and S2 normal GI Inspection: scaphoid Palpation: soft Auscultation: hypoactive bowel sounds Male General Exam: Yes normal external exam Back/Spine/Pelvis Thoracic/Lumbar Spine: kyphosis Skin General skin exam: dry skin and pallor Neuro General: awake, confused and unable to assess gait Cognition: abnormal cognition Speech: abnormal speech and expressive aphasia Gait: gait assisted Method: wheelchair bound Motor: tremor, muscle tone abnormal and strength abnormal Extrem General: muscle atrophy Psych Appearance: disheveled Speech and Movement: restless and slurred speech (garbled) Mood: anxious mood and labile mood Affect: labile affect, sad and anxious affect Attitude: cooperative and belligerent (with aides who were cleaning him) Thought Process: impoverished, loose association and other (speech very hard to understand, not directed toward answering questions) Insight: poor Judgment: poor Results Last Vital Signs Temp 97.9 F 01/05/19 08:00 Pulse 50 L 01/05/19 08:00 Resp 18 01/05/19 08:00 BP 157/77 H 01/05/19 08:00 Pulse Ox 96 01/05/19 08:00 Labs Result diagrams: 01/05/19 06:35 01/05/19 06:35 Labs: Laboratory Results - last 24 hr 01/05/19 01/05/19 06:35 06:35 WBC 3.33 L RBC 4.68 Hgb 14.6 Hct 43.5 MCV 92.9 MCH 31.2 MCHC 33.6 RDW 13.3 Plt Count 264 MPV 9.8 Sodium 140 Potassium 4.2 Chloride 106 Carbon Dioxide 27.5 Anion Gap 6.5 BUN 15 D Creatinine 0.96 Estimated GFR/1.73 m2 >= 60.00 Glucose 88 Calcium 8.5 Magnesium 2.3
--- NOTE | 2019-01-04 13:01 | W.PM.PROGNOT ---
Date of Service Date of service: 01/04/19 Time of Service: 13:01 Assessment and Plan Assessment and plan (1) Failure to thrive: Start date: 01/04/19 Start time: 13:08 Status: Acute Assessment and plan: Continues to not eat, is drinking coffee. Nursing continues to encourage PO intake. Psychiatry and palliative consulted. (2) Depression: Start date: 01/04/19 Start time: 13:14 Status: Chronic Assessment and plan: Per son will start weeping at times and not talk about why. FTT see above. (3) Parkinsonism: Start date: 01/04/19 Start time: 13:15 Status: Chronic Assessment and plan: Tremulous when sitting still. A component of parkinson, exacerbated by depression. Currently on sinemet. Also has not been compliant with his medication. Qualifiers: Parkinsonism type: Parkinson's disease Qualified Code(s): G20 - Parkinson's disease (4) Ambulatory dysfunction: Start date: 01/04/19 Start time: 13:15 Status: Acute Assessment and plan: Son states unable to walk in 5 or more years. However not wanting to get out of bed lately. palliative and psychiatry consulted (5) GERD (gastroesophageal reflux disease): Start date: 01/04/19 Start time: 13:15 Status: Chronic Assessment and plan: Protonix IVP (6) DVT prophylaxis: Start date: 01/04/19 Start time: 13:19 Status: Acute Assessment and plan: Enoxaparin Above findings were discussed with Dr. Lewis who is in agreement. Subjective Subjective Patient reports: no new complaints Interval history since last seen: No change. Patient continues to sleep and not eat. Palliative care to see patient today. Exam Const General: no acute distress and frail appearing Orientation: alert, awake and oriented x3 Eyes Pupils: PERRL Neck Lymphatic: no lymphadenopathy noted Chest Chest: normal inspection of the chest Resp Effort & Inspection: normal respiratory effort and able to speak in complete sentences Auscultation: clear to auscultation bilaterally Cardio Jugular venous pressure: no JVD Palpation: normal PMI Rate: regular rate Rhythm: regular rhythm Heart Sounds: S1 normal and S2 normal GI Palpation: soft and no hepatosplenomegaly Auscultation: hypoactive bowel sounds Back/Spine/Pelvis Back: no CVA tenderness Skin General skin exam: no rashes or lesions noted Neuro Speech: other Psych Mental Status: other (depressed) Mood: other (depressed) Affect: blunted Attitude: cooperative Thought Process: circumstantial Insight: poor Judgment: poor Objective Objective Clinical Data: Abnormal lab results 01/04/19 01/04/19 Range/Units 06:30 08:10 RBC 4.35 L (4.50-6.00) m/cumm Absolute Lymphocytes 0.80 L (1.2-3.4) k/cumm Chloride 108 H (98-107) mmol/L Calcium 8.3 L (8.5-10.1) mg/dL Magnesium 1.7 L (1.8-2.4) mg/dL Vital Signs Temperature 36.1 C L 01/04/19 08:11 Temperature Source Tympanic 01/04/19 08:11 Pulse 52 L 01/04/19 08:11 Pulse Rhythm Regular 01/04/19 09:04 Pulse 75 01/02/19 14:32 Respiratory Rate 18 01/04/19 08:11 Respiratory Effort Non-Labored 01/04/19 09:04 Respiratory Depth Normal 01/04/19 09:04 Respiratory Pattern Normal 01/04/19 09:04 Blood Pressure 163/75 H 01/04/19 08:11 Blood Pressure Mean 92 01/02/19 14:32 Blood Pressure Position Sitting 01/02/19 14:26 Pulse Oximetry 98 01/04/19 08:11 Oxygen Delivery Method Room Air 01/04/19 08:11 Oxygen Flow Rate 0 01/04/19 08:11 Pain Level 0 01/04/19 08:11 Comment 01/03/19 07:15 Intake & Output 01/03/19 01/04/19 01/04/19 23:59 11:59 23:59 Intake Total 1420 / 1420 250 / 250 Balance 1420 / 1420 250 / 250 Weight 65.3 kg Intake: IV 1120 / 1120 Oral 300 / 300 250 / 250 Other: Urine Color Yellow Voiding Methods Diaper Incontinent Diaper Incontinent Laboratory Results WBC 4.64 k/cumm (4.4-10.8) 01/04/19 08:10 RBC 4.35 m/cumm (4.50-6.00) L 01/04/19 08:10 Hgb 13.9 g/dL (13.5-17.5) 01/04/19 08:10 Hct 40.0 % (40.0-50.0) 01/04/19 08:10 MCV 92.0 fL (80-95) 01/04/19 08:10 MCH 32.0 pg (27.0-33.0) 01/04/19 08:10 MCHC 34.8 g/dL (32.0-36.0) 01/04/19 08:10 RDW 12.8 % (11.8-14.1) 01/04/19 08:10 Plt Count 236 x1000/uL (130-400) 01/04/19 08:10 MPV 9.4 fL (8.0-11.0) 01/04/19 08:10 Immature Gran % 0.0 01/04/19 08:10 Neutrophils % 72.9 01/04/19 08:10 Lymphocytes % 17.2 01/04/19 08:10 Monocytes % 5.0 01/04/19 08:10 Eosinophils % 4.7 01/04/19 08:10 Basophils % 0.2 01/04/19 08:10 Absolute Neutrophils 3.38 k/cumm (1.2-6.7) 01/04/19 08:10 Absolute Lymphocytes 0.80 k/cumm (1.2-3.4) L 01/04/19 08:10 Absolute Monocytes 0.23 k/cumm (0.11-0.7) 01/04/19 08:10 Absolute Eosinophils 0.22 k/cumm (0.0-0.7) 01/04/19 08:10 Absolute Basophils 0.01 k/cumm (0.0-0.2) 01/04/19 08:10 PT 10.3 sec (9.3-11.0) 01/02/19 15:15 INR 1.0 (0.9-1.1) 01/02/19 15:15 APTT 22.3 sec (21.0-31.4) 01/02/19 15:15 Sodium Cancelled 01/04/19 08:00 Potassium Cancelled 01/04/19 08:00 Chloride Cancelled 01/04/19 08:00 Carbon Dioxide Cancelled 01/04/19 08:00 Anion Gap Cancelled 01/04/19 08:00 BUN Cancelled 01/04/19 08:00 Creatinine Cancelled 01/04/19 08:00 Estimated GFR/1.73 m2 Cancelled 01/04/19 08:00 Glucose Cancelled 01/04/19 08:00 Lactate 0.8 mmol/L (0.6-1.4) 01/02/19 15:15 Calcium Cancelled 01/04/19 08:00 Magnesium Cancelled 01/04/19 08:00 Total Bilirubin 0.7 mg/dL (0.2-1.0) 01/02/19 15:15 AST 14 U/L (15-37) L 01/02/19 15:15 ALT 7 U/L (16-63) L 01/02/19 15:15 Alkaline Phosphatase 78 U/L (46-116) 01/02/19 15:15 Total Protein 6.2 g/dL (6.4-8.2) L 01/02/19 15:15 Albumin 3.6 g/dL (3.4-5.0) 01/02/19 15:15 Urine Color Yellow (Yellow) 01/02/19 15:59 Urine Clarity Clear (Clear) 01/02/19 15:59 Urine pH 5.5 (5-8) 01/02/19 15:59 Ur Specific [place] >= 1.030 (1.005-1.025) H 01/02/19 15:59 Urine Protein 100 mg/dL (Negative) H 01/02/19 15:59 Urine Ketones Trace mg/dL (Negative) H 01/02/19 15:59 Urine Blood Trace-intact (Negative) H 01/02/19 15:59 Urine Nitrite Negative (Negative) 01/02/19 15:59 Urine Bilirubin Small (Negative) H 01/02/19 15:59 Urine Urobilinogen 1.0 EU/dL (Up TO 0.2) H 01/02/19 15:59 Ur Leukocyte Esterase Negative (Negative) 01/02/19 15:59 Urine RBC 10-20 (0-2) H 01/02/19 15:59 Urine WBC 3-5 HPF (0-5) 01/02/19 15:59 Ur Epithelial Cells Rare HPF (Negative) 01/02/19 15:59 Urine Crystals Negative HPF (Negative) 01/02/19 15:59 Urine Bacteria Few HPF (Negative) 01/02/19 15:59 Urine Casts Negative LPF (Negative) 01/02/19 15:59 Urine Mucus Moderate (Negative) 01/02/19 15:59 Urine Other Negative (Negative) 01/02/19 15:59 Ur Culture Indicated? No 01/02/19 15:59 Urine Glucose Negative mg/dL (Negative) 01/02/19 15:59
[2019-01-04 15:37] VITALS: BP 130/66; PULSE 50; RESP 18; TEMP 36.7; O2SAT 97
[2019-01-04] MEDS: Pantoprazole 40 MG VIAL IVP (16:08)
--- NOTE | 2019-01-04 16:29 | PDOC.CMPRO ---
Care Management Progress Note S/O: Dr. Yusuf met with Rodolfo and son/caregiver, Renny, and completed a Palliative Care consult. She did not feel that this was the best option and recommended a Hospice Consult for Sunday. Met with Renny to discuss any questions he had. Renny feels that his dad is starting to need more care than he can provide at home. Would like admission to SNF to see if he can get some strength back so he can at least help stand and pivot to help a bit with care. Would like that to take place and if he cannot improve strength and mobilit then consider Hospice either at home or at the SNF. [facility]. A: 83 y.o. male admitted for AMS, Failure to thrive P: Anticipate short term SNF placement and then decision regarding Hospice to be made. Renny requested placement at [facility].
[2019-01-04 20:00] VITALS: BP 143/56; PULSE 59; RESP 22; TEMP 36.3; O2SAT 97
[2019-01-04] MEDS: traZODone 50 MG TAB 25 MG PO (21:36)
[2019-01-05] MEDS: ACETAMINOPHEN 1,000 MG/100 ML BTL 400 MG IVPB ×2 (05:11→21:30)
[2019-01-05] MEDS: Normal Saline Flush 10 ML SYR IVP ×3 (05:11→21:30)
[2019-01-05 07:08] LABS: HCT 43.5 % (40.0-50.0); HGB 14.6 g/dL (13.5-17.5); Mean Corp. HGB Concentration 33.6 g/dL (32.0-36.0); Mean Corpuscular Hemoglobin 31.2 pg (27.0-33.0); Mean Corpuscular Volume 92.9 fL (80-95); Mean Platelet Volume 9.8 fL (8.0-11.0); Platelet Count 264 x1000/uL (130-400); RBC 4.68 m/cumm (4.50-6.00); RBC Distribution Width 13.3 % (11.8-14.1); White Blood Cell Count 3.33 k/cumm (4.4-10.8)
[2019-01-05 07:19] LABS: Anion Gap 6.5 mmol/L (3-11); BUN 15 mg/dL (7-18); CO2 27.5 mmol/L (21.0-32.0); CREATININE 0.96 mg/dL (0.70-1.30); Calcium 8.5 mg/dL (8.5-10.1); Chloride 106 mmol/L (98-107); Glucose 88 mg/dL (70-100); Magnesium 2.3 mg/dL (1.8-2.4); Potassium 4.2 mmol/L (3.5-5.1); Sodium 140 mmol/L (136-145)
[2019-01-05] MEDS: Enoxaparin 40 MG/0.4 ML SYR SC (07:41)
[2019-01-05] MEDS: Calcium Carbonate 1.25 GM TAB PO (07:41)
[2019-01-05] MEDS: Carbidopa 50/Levodopa 200 CR TABCR 1 TAB PO (07:41)
[2019-01-05] MEDS: Pravastatin 20 MG TAB PO (07:41)
[2019-01-05] MEDS: Oxybutynin 5 MG TAB 10 MG PO (07:41)
[2019-01-05] MEDS: rOPINIRole 1 MG TAB PO (07:42)
[2019-01-05] MEDS: traMADol 50 MG TAB PO ×2 (07:43→14:06)
[2019-01-05 08:00] VITALS: BP 157/77; PULSE 50; RESP 18; TEMP 36.6; O2SAT 96
--- NOTE | 2019-01-05 09:27 | PGE_ITS ---
Date of Service Date of service: 01/05/19 Time of Service: 09:28 Assessment and Plan Assessment and plan (1) Failure to thrive: Start date: 01/05/19 Start time: 09:29 Status: Acute Assessment and plan: Appears lively today. Sitting up in bed talking with nurses and eating breakfast. Hospice consult tomorrow. (2) Depression: Start date: 01/05/19 Start time: 09:30 Status: Chronic Assessment and plan: Question about parkinson vs parkinsonism. Dementia. Per son patient was told by 2 neurologist he does not have parkinsons. Records are not available at this time as he was seen by neurology at [place]. 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 Which is correlated with the son's story of not recognizing everyday objects. Not recognizing what is food and what is not. Seroquel dcd and started on trazadone for sleep which is why I suspect he is looking well and lively this am. Psych consult dcd as hospice will be seeing him tomorrow. (3) Parkinsonism: Start date: 01/05/19 Start time: :33 Status: Chronic Assessment and plan: Tremulous when sitting still. see above Qualifiers: Parkinsonism type: Parkinson's disease Qualified Code(s): G20 - Parkinson's disease (4) Ambulatory dysfunction: Start date: 01/05/19 Start time: :33 Status: Acute Assessment and plan: Son states unable to walk in 5 or more years. However not wanting to get out of bed lately. palliative and psychiatry consulted (5) GERD (gastroesophageal reflux disease): Start date: 01/05/19 Start time: :33 Status: Chronic Assessment and plan: Protonix IVP (6) DVT prophylaxis: Start date: 01/05/19 Start time: :33 Status: Acute Assessment and plan: Enoxaparin Above findings were discussed with Dr. Lewis who is in agreement. Subjective Subjective Patient reports: no new complaints Interval history since last seen: Sitting up in bed, eating and appearing lively today. Hospice consult for tomorrow. Exam Const General: no acute distress and frail appearing Orientation: alert, awake and oriented x3 Eyes Pupils: PERRL Neck Lymphatic: no lymphadenopathy noted Chest Chest: normal inspection of the chest Resp Effort & Inspection: normal respiratory effort and able to speak in complete sentences Auscultation: clear to auscultation bilaterally Cardio Jugular venous pressure: no JVD Palpation: normal PMI Rate: regular rate Rhythm: regular rhythm Heart Sounds: S1 normal and S2 normal GI Palpation: soft and no hepatosplenomegaly Auscultation: hypoactive bowel sounds Back/Spine/Pelvis Back: no CVA tenderness Skin General skin exam: no rashes or lesions noted Neuro Speech: other Psych Mental Status: other (depressed) Mood: other (depressed) Affect: blunted Attitude: cooperative Thought Process: circumstantial Insight: poor Judgment: poor Objective Objective Clinical Data: Abnormal lab results 01/05/19 Range/Units 06:35 WBC 3.33 L (4.4-10.8) k/cumm Vital Signs Temperature 36.3 C L 01/04/19 20:00 Temperature Source Tympanic 01/04/19 20:00 Pulse 59 L 01/04/19 20:00 Pulse Rhythm Regular 01/05/19 09:15 Pulse 75 01/02/19 14:32 Respiratory Rate 22 01/04/19 20:00 Respiratory Effort Non-Labored 01/05/19 09:15 Respiratory Depth Normal 01/05/19 09:15 Respiratory Pattern Normal 01/05/19 09:15 Blood Pressure 143/56 H 01/04/19 20:00 Blood Pressure Mean 92 01/02/19 14:32 Blood Pressure Position Sitting 01/02/19 14:26 Pulse Oximetry 97 01/04/19 20:00 Oxygen Delivery Method Room Air 01/04/19 20:00 Oxygen Flow Rate 0 01/04/19 20:00 Pain Level 2 01/05/19 07:43 Comment 01/03/19 07:15 Intake & Output 01/04/19 01/04/19 01/05/19 11:59 23:59 11:59 Intake Total 350 / 960 610 / 960 120 / 120 Balance 350 / 960 610 / 960 120 / 120 Weight 65.3 kg Intake: IV 100 / 320 220 / 320 120 / 120 Oral 250 / 640 390 / 640 Other: Urine Color Yellow Urine Appearance Clear Voiding Methods Incontinent Diaper Diaper Incontinent Incontinent Laboratory Results WBC 3.33 k/cumm (4.4-10.8) L 01/05/19 06:35 RBC 4.68 m/cumm (4.50-6.00) 01/05/19 06:35 Hgb 14.6 g/dL (13.5-17.5) 01/05/19 06:35 Hct 43.5 % (40.0-50.0) 01/05/19 06:35 MCV 92.9 fL (80-95) 01/05/19 06:35 MCH 31.2 pg (27.0-33.0) 01/05/19 06:35 MCHC 33.6 g/dL (32.0-36.0) 01/05/19 06:35 RDW 13.3 % (11.8-14.1) 01/05/19 06:35 Plt Count 264 x1000/uL (130-400) 01/05/19 06:35 MPV 9.8 fL (8.0-11.0) 01/05/19 06:35 Immature Gran % 0.0 01/04/19 08:10 Neutrophils % 72.9 01/04/19 08:10 Lymphocytes % 17.2 01/04/19 08:10 Monocytes % 5.0 01/04/19 08:10 Eosinophils % 4.7 01/04/19 08:10 Basophils % 0.2 01/04/19 08:10 Absolute Neutrophils 3.38 k/cumm (1.2-6.7) 01/04/19 08:10 Absolute Lymphocytes 0.80 k/cumm (1.2-3.4) L 01/04/19 08:10 Absolute Monocytes 0.23 k/cumm (0.11-0.7) 01/04/19 08:10 Absolute Eosinophils 0.22 k/cumm (0.0-0.7) 01/04/19 08:10 Absolute Basophils 0.01 k/cumm (0.0-0.2) 01/04/19 08:10 PT 10.3 sec (9.3-11.0) 01/02/19 15:15 INR 1.0 (0.9-1.1) 01/02/19 15:15 APTT 22.3 sec (21.0-31.4) 01/02/19 15:15 Sodium 140 mmol/L (136-145) 01/05/19 06:35 Potassium 4.2 mmol/L (3.5-5.1) 01/05/19 06:35 Chloride 106 mmol/L (98-107) 01/05/19 06:35 Carbon Dioxide 27.5 mmol/L (21.0-32.0) 01/05/19 06:35 Anion Gap 6.5 mmol/L (3-11) 01/05/19 06:35 BUN 15 mg/dL (7-18) D 01/05/19 06:35 Creatinine 0.96 mg/dL (0.70-1.30) 01/05/19 06:35 Estimated GFR/1.73 m2 >= 60.00 (mL/min/1.73m2) 01/05/19 06:35 Glucose 88 mg/dL (70-100) 01/05/19 06:35 Lactate 0.8 mmol/L (0.6-1.4) 01/02/19 15:15 Calcium 8.5 mg/dL (8.5-10.1) 01/05/19 06:35 Magnesium 2.3 mg/dL (1.8-2.4) 01/05/19 06:35 Total Bilirubin 0.7 mg/dL (0.2-1.0) 01/02/19 15:15 AST 14 U/L (15-37) L 01/02/19 15:15 ALT 7 U/L (16-63) L 01/02/19 15:15 Alkaline Phosphatase 78 U/L (46-116) 01/02/19 15:15 Total Protein 6.2 g/dL (6.4-8.2) L 01/02/19 15:15 Albumin 3.6 g/dL (3.4-5.0) 01/02/19 15:15 Urine Color Yellow (Yellow) 01/02/19 15:59 Urine Clarity Clear (Clear) 01/02/19 15:59 Urine pH 5.5 (5-8) 01/02/19 15:59 Ur Specific [place] >= 1.030 (1.005-1.025) H 01/02/19 15:59 Urine Protein 100 mg/dL (Negative) H 01/02/19 15:59 Urine Ketones Trace mg/dL (Negative) H 01/02/19 15:59 Urine Blood Trace-intact (Negative) H 01/02/19 15:59 Urine Nitrite Negative (Negative) 01/02/19 15:59 Urine Bilirubin Small (Negative) H 01/02/19 15:59 Urine Urobilinogen 1.0 EU/dL (Up TO 0.2) H 01/02/19 15:59 Ur Leukocyte Esterase Negative (Negative) 01/02/19 15:59 Urine RBC 10-20 (0-2) H 01/02/19 15:59 Urine WBC 3-5 HPF (0-5) 01/02/19 15:59 Ur Epithelial Cells Rare HPF (Negative) 01/02/19 15:59 Urine Crystals Negative HPF (Negative) 01/02/19 15:59 Urine Bacteria Few HPF (Negative) 01/02/19 15:59 Urine Casts Negative LPF (Negative) 01/02/19 15:59 Urine Mucus Moderate (Negative) 01/02/19 15:59 Urine Other Negative (Negative) 01/02/19 15:59 Ur Culture Indicated? No 01/02/19 15:59 Urine Glucose Negative mg/dL (Negative) 01/02/19 15:59
--- NOTE | 2019-01-05 11:46 | CMPROGNOTE_ITS ---
Care Management Progress Note S/O: Rodolfo was resting in bed. Essentially unable to follow a conversation. Limited ability to follow directions. Renny has not been in to visit this morning. Renny's main concerns are related to how difficult it is for him as the sole caregiver to meet the care needs for his father at home. Anxious that if Rodolfo does have hospice services in the home he, Renny, will not be able to physically meet the daily care needs. A: 83 y.o. male admitted for AMS, Failure to thrive P: Decisions will need to be made regarding actual discharge disposition. Will Rodolfo benefit from short term SNF to see if he can increase strength and mobility or is he a candidate for Hospice services at this time. SNF placement for PT [facility] at [facility] at the family's request. The family will need further discussion with Dr. Yusuf to determine if he should go directly into the Hospice program and can that happen at [facility]. Hospice Consult requested for Sunday.
[2019-01-05] MEDS: Pantoprazole 40 MG VIAL IVP (15:24)
[2019-01-05 15:26] VITALS: BP 135/65; PULSE 72; RESP 18; TEMP 36; O2SAT 95
[2019-01-05] MEDS: Acetaminophen 325 MG TAB PO (16:33)
[2019-01-05] MEDS: traZODone 50 MG TAB 25 MG PO (20:21)
[2019-01-06] MEDS: LORazepam 0.5 MG TAB PO (00:12)
[2019-01-06] MEDS: Normal Saline Flush 10 ML SYR IVP (06:16)
[2019-01-06] MEDS: ACETAMINOPHEN 1,000 MG/100 ML BTL 400 MG IVPB (06:16)
[2019-01-06 06:35] VITALS: BP 155/88; PULSE 50; RESP 20; TEMP 37.1; O2SAT 96
[2019-01-06 07:10] LABS: HCT 39.3 % (40.0-50.0); HGB 13.1 g/dL (13.5-17.5); Mean Corp. HGB Concentration 33.3 g/dL (32.0-36.0); Mean Corpuscular Hemoglobin 31.2 pg (27.0-33.0); Mean Corpuscular Volume 93.6 fL (80-95); Mean Platelet Volume 9.9 fL (8.0-11.0); Platelet Count 235 x1000/uL (130-400); RBC Distribution Width 13.1 % (11.8-14.1); White Blood Cell Count 3.33 k/cumm (4.4-10.8)
[2019-01-06 07:19] LABS: Anion Gap 6.1 mmol/L (3-11); BUN 17 mg/dL (7-18); CO2 26.9 mmol/L (21.0-32.0); CREATININE 0.94 mg/dL (0.70-1.30); Chloride 108 mmol/L (98-107); Glucose 85 mg/dL (70-100); Magnesium 1.9 mg/dL (1.8-2.4); Potassium 3.8 mmol/L (3.5-5.1); Sodium 141 mmol/L (136-145)
[2019-01-06] MEDS: Potassium Chloride 20 MEQ TABCR PO (09:02)
[2019-01-06] MEDS: Pravastatin 20 MG TAB PO (09:02)
[2019-01-06] MEDS: Oxybutynin 5 MG TAB 10 MG PO (09:02)
[2019-01-06] MEDS: rOPINIRole 1 MG TAB PO (09:02)
[2019-01-06] MEDS: Carbidopa 50/Levodopa 200 CR TABCR 1 TAB PO (09:02)
[2019-01-06] MEDS: Enoxaparin 40 MG/0.4 ML SYR SC (09:02)
[2019-01-06] MEDS: Magnesium Oxide 400 MG TAB PO (09:02)
[2019-01-06] MEDS: Calcium Carbonate 1.25 GM TAB PO (09:03)
[2019-01-06 09:40] VITALS: BP 135/77; PULSE 95; RESP 20; TEMP 36.8; O2SAT 99
[2019-01-06] MEDS: Polyethylene Glycol 3350 17 GM PACKET PO (10:15)
--- NOTE | 2019-01-06 11:46 | DSE_ITS ---
Date of service: 01/06/19 Time of Service: 11:46 DS: Diagnosis Discharge Diagnosis (1) Dementia: Start date: 01/06/19 Start time: 11:46 Status: Chronic Asessment and Plan: End stage. Periods of confusion with agressiveness. Changed seroquel to trazodone. Patient has been sitting up in bed this am and yesterday eating small amounts more awake. Continue trazodone for sleep. Transfer to rehab today as son would like to see him gain strength. Unlikely as he is end stage. Hospice conversation to take place at rehab (2) Failure to thrive: Start date: 01/06/19 Start time: 11:47 Status: Acute (3) Ambulatory dysfunction: Status: Acute (4) Parkinson's disease dementia: Status: Acute (5) Encounter for hospice care discussion: Start date: 01/06/19 Start time: 11:48 Status: Acute Asessment and Plan: Will take place at rehab (6) Palliative care patient: Status: Acute (7) Unintentional weight loss: Status: Acute (8) Confusion and disorientation: Status: Acute Discharge Plan Disposition Patient Disposition: SNF (LEVEL 1) [facility] Condition: Fair Discharge Details Chief Complaint: AMS/LOC Clinical Impression: Altered mental status Reason For Visit: AMS Admit Date/Time: 01/03/19 11:06 Admit Provider: Aristeo De Jesus Attending Provider: Aristeo De Jesus Primary Care Provider: Yazmin Urbina [facility] Course: 83 y.o M with PMH of TIA, Parkinsonism, Urinary retention and CA s/p radiation treatments and GERD. He was admitted from [facility] emergency department on 01/02 for agitation and worsening dementia. He was placed on seroquel on admission and for the first couple days was sleeping alot. Seroquel was dcd and he was started on trazodone with positive outcome. He was able to stay awake more during the day and eat small amounts. Palliative care did see him and determined this was parkinsons with end stage dementia. There is confusion as to parkinson vs parkinsoniam. The son states two neurologist said he did not have parkinsons. He does have tremors and garbled speech. He is nonambulatory and has been for 5-6 years. Recently his in July and since then he has had a decline in function. Over the last month he lost approx 20 lbs, he does not recognize objects, will try to steal objects without realizing he is doing this. He does become agitated when he does not want to cooperate, ripping of is depend, thrashing and saying no. Palliative care recommendation is to offer him food and toileting and if he will not cooperate let him be. 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 Per his son approx. 5-6 years ago he went to bed woke up the next morning and was unable to ambulate. At the time he refused to seek medical attention he was given a wheel chair and has been using it since. His son hopes to get him strong enough to stand and pivot in WC to chair and bed. Over the last two weeks he has been refusing to eat and drink and told his son several times I want to . At times he will want to hold a hand and other times he does not want to be touched. He did cry out in pain several times c/o his hip; per son this is normal pain. Tramadol worked well for pain with tylenol. He is being discharged and transferred to H/R He does not appear in any distress, to have CP, SOB or n/v/ Home Meds and New Rx's Prescriptions: New trazodone 50 mg Tablet 25 mg PO HS Qty: 30 RF: 0 polyethylene glycol 3350 17 gram Powder In Packet 17 g PO DAILY PRN PRN (Reason: Constipation) Qty: 15 RF: 0 tramadol 50 mg Tablet 50 mg PO Q6H PRN PRNQty: 20 RF: 0 Continued carbidopa-levodopa [Sinemet CR] 1 EACH tablet extended release 1 tab-cap PO BID Qty: 90 RF: 5 ropinirole 1 MG tablet 1 mg PO DAILY RF: 0 calcium carbonate [Calcium 500] 500 mg calcium (1,250 mg) tablet 500 mg PO BID Qty: 30 RF: 0 oxybutynin chloride 10 mg Tablet Extended Release 24hr 10 mg PO DAILY RF: 0 lorazepam [Ativan] 0.5 mg Tablet 0.5 mg PO DAILY PRNRF: 0 pravastatin 20 mg Tablet 20 mg PO DAILY RF: 0 Discontinued cephalexin [Keflex] 500 mg capsule 500 mg PO QID 7 Days Qty: 28 RF: 0 Discharge Instructions Instructions: Parkinson Disease (GEN), Dementia (GEN) Additional Instructions: Take tramadol for pain every 6 hours as needed with tylenol. Trazadone for sleep Ativan for agitation Hospice to set meeting up with son. Offer toileting and food but allow patient to refuse. Stand Alone Forms: Nursing Discharge Form Referrals: Yazmin Urbina [Primary Care Provider] - Activity:: Activity as Tolerated Equipment/Supplies:: No Equipment Needed Diet:: As Tolerated Discharge Orders Discharge Orders: Discharge Order (Routine); Ordered 01/06/19 Ordered By: Joanna Morrow DS: Summary Status at Discharge Functional status at discharge: wheelchair bound Overall status at discharge: patient is not back to baseline Mental Status: other (depressed) Speech and Movement: delayed speech and slurred speech Mood: other (depressed) Affect: blunted Exam Const General: no acute distress and frail appearing Orientation: alert, awake and oriented x3 Eyes Pupils: PERRL Neck Lymphatic: no lymphadenopathy noted Chest Chest: normal inspection of the chest Resp Effort & Inspection: normal respiratory effort and able to speak in complete sentences Auscultation: clear to auscultation bilaterally Cardio Jugular venous pressure: no JVD Palpation: normal PMI Rate: regular rate Rhythm: regular rhythm Heart Sounds: S1 normal and S2 normal GI Palpation: soft and no hepatosplenomegaly Auscultation: hypoactive bowel sounds Back/Spine/Pelvis Back: no CVA tenderness Skin General skin exam: no rashes or lesions noted Neuro Speech: other Psych Mental Status: other (depressed) Speech and Movement: delayed speech and slurred speech Mood: other (depressed) Affect: blunted Attitude: cooperative Thought Process: circumstantial Insight: poor Judgment: poor DS: Data Vitals/I&O Vitals and I&O: Vital Signs Temperature 36.8 C 01/06/19 09:40 Temperature Source Tympanic 01/06/19 09:40 Pulse 95 H 01/06/19 09:40 Pulse Rhythm Regular 01/06/19 10:05 Pulse 75 01/02/19 14:32 Respiratory Rate 20 01/06/19 09:40 Respiratory Effort Non-Labored 01/06/19 10:05 Respiratory Depth Normal 01/06/19 10:05 Respiratory Pattern Normal 01/06/19 10:05 Blood Pressure 135/77 01/06/19 09:40 Blood Pressure Mean 92 01/02/19 14:32 Blood Pressure Position Sitting 01/02/19 14:26 Pulse Oximetry 99 01/06/19 09:40 Oxygen Delivery Method Room Air 01/06/19 09:40 Oxygen Flow Rate 0 01/06/19 09:40 Pain Level 0 01/06/19 09:40 Comment 01/06/19 09:40 Intake & Output 01/05/19 01/05/19 01/06/19 11:59 23:59 11:59 Intake Total 120 / 340 220 / 340 140 / 140 Balance 120 / 340 220 / 340 140 / 140 Intake: IV 120 / 240 120 / 240 20 / 20 Oral 100 / 100 120 / 120 Other: Voiding Methods Diaper Diaper Diaper Incontinent Incontinent Data Completed and Pending Completed studies during hospitalization [Text1]: EXAM: CT Head Without Contrast EXAM DATE/TIME: 01/02/2019 3:04 PM CLINICAL HISTORY: 83 years old, male; Other: Change in mental status TECHNIQUE: Imaging protocol: Computed tomography of the head without contrast. Radiation optimization: All CT scans at this facility use at least one of these dose optimization techniques: automated exposure control; mA and/or kV adjustment per patient size (includes targeted exams where dose is matched to clinical indication); or iterative reconstruction. COMPARISON: CT HEAD CERVICAL SPINE WO 11/29/2018 4:36 PM FINDINGS: Brain: There is no acute hemorrhage, mass effect, or extra-axial fluid collections. The cortical sulci are diffusely prominent slightly worsen average for age. There is severe periventricular hypodensity. There is also small areas of hypodensity in the white matter deep to the insula bilaterally. There is a 5 mm hypodensity consistent with old infarct at the outer age of the head of the caudate nucleus on the right. Ventricles: The ventricles are within normal limits for age. Bones/joints: Unremarkable. No acute fracture. Sinuses: Visualized sinuses are unremarkable. No fluid levels. Mastoid air cells: Visualized mastoid air cells are well aerated. Soft tissues: Unremarkable. IMPRESSION: 1. No evidence of acute infarct. 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 Severe chronic small vessel ischemic changes worse than average for age. EXAM DATE/TIME: 01/02/2019 4:50 PM CLINICAL HISTORY: 83 years old, male; Other: Change in mental status TECHNIQUE: Imaging protocol: XR of the chest Views: 1 view. COMPARISON: SC XR CHEST 2V PA LATERAL 11/29/2018 4:29 PM FINDINGS: Lungs: Inspiration is slightly suboptimal. There appears to be some bony density obscuring a tiny portion of the medial apex of the right lung most likely just the mandible due to head position. Pleural space: Unremarkable. No pleural effusion. No pneumothorax. Heart/Mediastinum: Unremarkable. No cardiomegaly. Vasculature: There is moderate ectasia of thoracic aorta. Bones/joints: There appears to resection of a small portion of the distal clavicle. IMPRESSION: Chronic changes but no acute cardiopulmonary process. Labs on day of discharge: Labs from last 24 hours 01/06/19 01/06/19 06:25 06:25 WBC 3.33 L RBC 4.20 L Hgb 13.1 L Hct 39.3 L MCV 93.6 MCH 31.2 MCHC 33.3 RDW 13.1 Plt Count 235 MPV 9.9 Sodium 141 Potassium 3.8 Chloride 108 H Carbon Dioxide 26.9 Anion Gap 6.1 BUN 17 Creatinine 0.94 Estimated GFR/1.73 m2 >= 60.00 Glucose 85 Calcium 8.0 L Magnesium 1.9 PFSH Medical History Confusion and disorientation (Acute) Cystitis (Acute) Encounter for hospice care discussion (Acute) GERD (gastroesophageal reflux disease) (Chronic) Palliative care patient (Acute) Parkinson's disease dementia (Acute) Parkinsonism (Chronic) Prostate cancer (Chronic) Renal calculus, left (Chronic) TIA (transient ischemic attack) (Acute) Unintentional weight loss (Acute) Urinary retention (Acute) Surgical History History of appendectomy (Chronic) History of hernia repair (Chronic) inguinal hernia repair History of knee replacement (Chronic) right knee (Dr. Hernandez) S/P carpal tunnel release (Acute) S/P rotator cuff repair (Acute) 09/13/2015, Dr. Hernandez; R. rotator cuff repair w/ excision of distal clavicle and biceps tenolysis Family History Son No problems noted. Social History Smoking/Tobacco Use Status: Former Tobacco Use Alcohol Intake: former Drug use: Never Substance use type: does not use Do you feel safe at home: Yes Do you feel safe in your relationship?: Yes
--- NOTE | 2019-01-06 13:33 | NUR.NOTE ---
Called and gave health and rehab nurse report. Transport to happen at 1400.Nursing Note:
[2019-01-06] MEDS: Acetaminophen 325 MG TAB PO (13:38)
--- NOTE | 2019-01-06 15:56 | PDOC.CMDIS ---
- If Service Date Differs Date of service: 01/06/19 Time of Service: 15:56 LACE Index Scoring Tool - Questions: Length of Stay (in days): 4 - 6 Acuity (Admit via E.D.?): Yes Comorbidities: Dementia E.D. Visits: 7 - Answers: Total Score: 14 Risk of Readmission: High Risk Care Management Discharge Reason for Hospitalization: AMS, Failure to Thrive Discharge Plan: Rodolfo was discharged to [facility] for a short term rehab stay. He will meet with Hospice while at [facility] to discuss his goals and plan of care going forward. CM coordinated hospice consult. Rodolfo is agreeable to this plan. Renny, Rodolfo's son, is also comfortable with the plan. He was transported by ambulance. Patient/Family Education Needs: Review of discharge instructions including plan for hospice consult with patient, family, and H & R staff. Services Needed at Discharge: Jail Facility, Transportation
== END 2019-01-06 15:10 | disposition skilled nursing facility (03) | DRG 57 ==
LOC: ER 19:27 → MS 19:46
PROVIDERS: Nurse Practitioner Family; Physician Assistant; Admitting Provider Internal Medicine; Emergency Provider Physician Assistant; PCP Family Medicine; Visit Provider Internal Medicine
DX: G20 Parkinson's disease (principal); F02.80 Dementia in other diseases classified elsewhere, unspecified severity, without behavioral disturbance, psychotic disturbance, mood disturbance, and anxiety; R62.7 Adult failure to thrive; Z68.21 Body mass index [BMI] 21.0-21.9, adult; R26.2 Difficulty in walking, not elsewhere classified; Z51.5 Encounter for palliative care; K21.9 Gastro-esophageal reflux disease without esophagitis; F32.9 Major depressive disorder, single episode, unspecified
CPT/HCPCS: 36415; 51701; 80048; 80053; 85027; 96360; 96361; 99220; 99233; 99239; 99255; 99284; J1650; 70450; 71045; 81003; 81015; 83605; 83735; 85025; 85610; 85730; 87086; G0378; J0131; J3475

== ENCOUNTER 2019-02-05 10:02 | Emergency (ER) | payer MEDICARE, MEDICAID, SELFPAY ==
[2019-02-05] VITALS (27 sets, daily range): BP systolic 92–136; BP diastolic 64–79; PULSE 49–92; RESP 15–28; TEMP 36.4–36.8; O2SAT 95–100
--- NOTE | 2019-02-05 10:12 | ED.GENADUL_ITS ---
Discharge Plan Disposition Patient Disposition: [facility] (LEVEL 2) [facility] Condition: Improving Discharge Details Chief Complaint: Chest Pain Clinical Impression: Atypical chest pain Primary Care Provider: Yazmin Urbina ED Provider: Bentley Goss Home Meds and New Rx's Prescriptions: Continued carbidopa-levodopa [Sinemet CR] 1 EACH tablet extended release 1 tab-cap PO BID Qty: 90 RF: 5 ropinirole 1 MG tablet 1 mg PO DAILY RF: 0 trazodone 50 mg Tablet 25 mg PO HS Qty: 30 RF: 0 polyethylene glycol 3350 17 gram Powder In Packet 17 g PO DAILY PRN PRN (Reason: Constipation) Qty: 15 RF: 0 tramadol 50 mg Tablet 50 mg PO Q6H PRN PRNQty: 20 RF: 0 calcium carbonate [Calcium 500] 500 mg calcium (1,250 mg) tablet 500 mg PO BID Qty: 30 RF: 0 oxybutynin chloride 10 mg Tablet Extended Release 24hr 10 mg PO DAILY RF: 0 lorazepam [Ativan] 0.5 mg Tablet 0.5 mg PO DAILY PRNRF: 0 pravastatin 20 mg Tablet 20 mg PO DAILY RF: 0 acetaminophen 325 mg Tablet 650 mg PO Q6H PRN PRNRF: 0 Discharge Instructions Instructions: Chest Pain (ED) Additional Instructions: Your work-up today included blood work, telemetry, chest x-ray. Your troponin was negative x2. Your work-up was unremarkable. Return for recurrent symptoms or development of a fever, shortness of breath, or any other acute concern. Resume normal routine, activities, prescribed medications. Medical Decision Making 83-year-old male presents via EMS from local rehabilitation facility. He was noted to have increased respiratory difficulty this morning with associated room air sat of approximately 80%. He states that he had transient left-sided chest pain associated with this that this now improved. Arrives with normal blood pressure, interactive, & quickly weaned to nasal cannula oxygen with 100% room air sat. States to me he has no further discomfort. His son states that he has had episodes like this in the past that are transient and improve on their own. He arrives in a bigeminal pattern of atrial ectopy, similar to that noted on cardiac monitoring December 21, 2015 After triage, patient able to wean to room air. Remains with normal oxygenation of 98 to 100% on room air. Speaking in full sentences, without further discomfort. He subsequently ate a lunch tray. Diagnostics reveal an unremarkable chest x-ray. CBC that shows a white count of 3.2, hematocrit 44, platelets 250, slightly elevated sodium of 146, potassium 3.9, chloride 108, bicarb 31, BUN 18, creatinine 0.8. Troponin negative. He was observed on telemetry with repeat troponin obtained and negative. Patient remains improved and without discomfort, no abnormal vital signs. He stable and appropriate for discharge from the emergency department at this time. Lab Data Lab results reviewed: Yes I reviewed the patient's lab results. Labs: Laboratory Results - last 24 hr 02/05/19 02/05/19 02/05/19 10:20 10:20 12:30 WBC 3.28 L RBC 4.68 Hgb 14.9 Hct 44.0 MCV 94.0 MCH 31.8 MCHC 33.9 RDW 13.7 Plt Count 250 MPV 9.8 Immature Gran % 0.3 Neutrophils % 62.2 Lymphocytes % 29.9 Monocytes % 5.5 Eosinophils % 1.8 Basophils % 0.3 Absolute Neutrophils 2.04 Absolute Lymphocytes 0.98 L Absolute Monocytes 0.18 Absolute Eosinophils 0.06 Absolute Basophils 0.01 Sodium 146 H Potassium 3.9 Chloride 108 H Carbon Dioxide 31.7 Anion Gap 6.3 BUN 18 Creatinine 0.89 Estimated GFR/1.73 m2 >= 60.00 Glucose 83 Calcium 8.8 Magnesium 1.8 Total Bilirubin 0.7 AST 11 L ALT 7 L Alkaline Phosphatase 79 Troponin I < 0.05 < 0.05 Total Protein 6.2 L Albumin 3.4 ECG Data Attestation: I personally reviewed and interpreted this ECG (s) as follows: Prior ECG tracings: available for review Interpretation: Normal sinus rhythm with frequent PACs in a bigeminal pattern. Rate of 67, the QRS is narrow, there is no ST segment elevation. HPI General Mode of arrival: EMS . Date/Time Provider Initiated Documentation: 02/05/19 10:15 . Limitations to Documentation: other (Advanced Parkinson's disease) . Information obtained by: patient, EMS and RN notes reviewed . History of Present Illness 83 year old M presents to the emergency department with the chief complaint of Transient left-sided chest pain, now improved, described as moderate, Quality is described as dull, and is localized to the chest and left. Patient reports no radiation. Patient started experiencing this minute(s) and it has been now resolved. No relieving factors improve symptom(s), No exacerbating factors reported . Patient notes cough and shortness of breath. Patient did receive the following treatments prior to arrival, other (Oxygen) Related Data Home Medications Medication Instructions Recorded Confirmed carbidopa-levodopa [Sinemet CR] 1 tab-cap PO BID #90 tab-cap 10/08/13 02/05/19 ropinirole 1 mg PO DAILY 06/29/17 02/05/19 calcium carbonate [Calcium 500] 500 mg PO BID #30 tab 04/19/18 02/05/19 lorazepam [Ativan] 0.5 mg PO DAILY PRN 12/30/18 02/05/19 oxybutynin chloride 10 mg PO DAILY 12/30/18 02/05/19 pravastatin 20 mg PO DAILY 12/30/18 02/05/19 polyethylene glycol 3350 17 g PO DAILY PRN PRN #15 ea 01/06/19 02/05/19 tramadol 50 mg PO Q6H PRN PRN #20 tab 01/06/19 02/05/19 trazodone 25 mg PO HS #30 tab 01/06/19 02/05/19 acetaminophen 650 mg PO Q6H PRN PRN 02/05/19 02/05/19 Previous Rx's Medication Instructions Recorded calcium carbonate [Calcium 500] 500 mg PO BID #30 tab 04/19/18 polyethylene glycol 3350 17 g PO DAILY PRN PRN #15 ea 01/06/19 tramadol 50 mg PO Q6H PRN PRN #20 tab 01/06/19 trazodone 25 mg PO HS #30 tab 01/06/19 Allergies Allergy/AdvReac Type Severity Reaction Status Date / Time Sulfa (Sulfonamide AdvReac Mild GI/diarrhea Verified 02/05/19 10:23 Antibiotics) General BANDAR: 2 Review of Systems Review of Systems Narrative: Patient has been admitted to local rehabilitation facility. He is undergone palliative care consultation. No note of a fever. No note of vomiting. Patient describes difficulty breathing and was found to be hypoxic. [facility] Medical History Confusion and disorientation (Acute) Cystitis (Acute) Encounter for hospice care discussion (Acute) GERD (gastroesophageal reflux disease) (Chronic) Palliative care patient (Acute) Parkinson's disease dementia (Acute) Parkinsonism (Chronic) Prostate cancer (Chronic) Renal calculus, left (Chronic) TIA (transient ischemic attack) (Acute) Unintentional weight loss (Acute) Urinary retention (Acute) Surgical History History of appendectomy (Chronic) History of hernia repair (Chronic) inguinal hernia repair History of knee replacement (Chronic) right knee (Dr. Hernandez) S/P carpal tunnel release (Acute) S/P rotator cuff repair (Acute) 09/13/2015, Dr. Hernandez; [place] rotator cuff repair w/ excision of distal clavicle and biceps tenolysis Family History Son No problems noted. Social History Smoking/Tobacco Use Status: Former Tobacco Use Alcohol Intake: former Drug use: Never Substance use type: does not use Caregiver/Support person: Yes Household members: children Housing: house Number of Children: 1 Communication Needs: Hard of Hearing and Corrective Lenses Education Level: high school Do you need help understanding health information?: Always current occupation: retired What is your relationship status?: How often do you talk on the phone with friends or family?: never How often do you get together with friends or relatives?: three or more times per week Panel score (0-1 are the most socially isolated patients): 1 What type of physical activity do you participate in: none and wheelchair-bound Special rachel needs: No Seatbelt use: always Do you feel safe at home: Yes Do you feel safe in your relationship?: Yes Additional Social history: Lives with son who is his caregiver. earlier this year. Health has gone downhill since his 's . Exam Narrative Exam Narrative: GEN: awake, alert. Pleasant, well groomed, interactive, resting tremor. HEAD: Normocephalic, atraumatic ENT: Mucous membranes dry, oropharynx unremarkable, External ear exam unremarkable EYES: PERRL, EOMI NECK: Full ROM, no JAYSON, no menigismus CHEST/RESP: Nontender, diminished bilaterally CARDIOVASCULAR: Distant RRR, no murmur, rub naheed. 2+ Rad pulse bilateral ABDOMEN: Soft, nontender, no mass. +Bowel sounds EXT: Full ROM, no edema, no rash Neuro: Resting tremor with otherwise grossly normal neurologic exam, conversant, interactive. Psych: Speech fluent, affect flat
[2019-02-05 10:43] LABS: Abs Immature Grans 0.01 k/cumm (0.0-0.09); Absolute Basophil Count 0.01 k/cumm (0.0-0.2); Absolute Eosinophil Count 0.06 k/cumm (0.0-0.7); Absolute Lymphocyte Count 0.98 k/cumm (1.2-3.4); Absolute Monocyte Count 0.18 k/cumm (0.11-0.7); Absolute Neutrophil Count 2.04 k/cumm (1.2-6.7); Basophils % 0.3; Eosinophils % 1.8; HGB 14.9 g/dL (13.5-17.5); Immature Grans % 0.3; Lymphocytes % 29.9; Mean Corp. HGB Concentration 33.9 g/dL (32.0-36.0); Mean Corpuscular Hemoglobin 31.8 pg (27.0-33.0); Mean Platelet Volume 9.8 fL (8.0-11.0); Monocytes % 5.5; Neutrophils % 62.2; Platelet Count 250 x1000/uL (130-400); RBC 4.68 m/cumm (4.50-6.00); RBC Distribution Width 13.7 % (11.8-14.1); White Blood Cell Count 3.28 k/cumm (4.4-10.8)
[2019-02-05 10:59] LABS: ALT 7 U/L (16-63); AST 11 U/L (15-37); Albumin 3.4 g/dL (3.4-5.0); Alkaline Phosphatase 79 U/L (46-116); Anion Gap 6.3 mmol/L (3-11); BUN 18 mg/dL (7-18); Bilirubin, Total 0.7 mg/dL (0.2-1.0); CO2 31.7 mmol/L (21.0-32.0); CREATININE 0.89 mg/dL (0.70-1.30); Calcium 8.8 mg/dL (8.5-10.1); Chloride 108 mmol/L (98-107); Glucose 83 mg/dL (70-100); Magnesium 1.8 mg/dL (1.8-2.4); Potassium 3.9 mmol/L (3.5-5.1); Sodium 146 mmol/L (136-145); Total Protein 6.2 g/dL (6.4-8.2)
[2019-02-05 11:04] LABS: Troponin I < 0.05 ng/mL (0.00-0.06)
--- NOTE | 2019-02-05 11:17 | DI.RAD_ITS ---
EXAM: XR CHEST 2V PA LATERAL INDICATION: resp distress COMPARISON: XR PORTABLE CHEST AP from 01/02/2019 TECHNIQUE: 2D digital imaging was performed. FINDINGS: The heart size is normal. The aorta is tortuous. Mild elevation of the left diaphragm with eventra tion. The lungs appear clear. No infiltrate, effusion or pulmonary edema is seen. There is no thora cic compression fracture. There has been previous excision of the right distal clavicle. There has been a prior right rotator cuff repair. IMPRESSION: No acute abnormality.
[2019-02-05 12:53] LABS: Troponin I < 0.05 ng/mL (0.00-0.06)
== END 2019-02-05 13:40 | disposition intermediate care facility (04) ==
PROVIDERS: Emergency Provider Emergency Medicine; PCP Family Medicine
DX: R07.89 Other chest pain (principal); G20 Parkinson's disease
CPT/HCPCS: 36415; 80053; 93005; 99285; 71046; 83735; 84484; 85025; 93010

== ENCOUNTER 2019-02-21 14:33 | Outpatient (REF) | payer MEDICARE, MEDICAID, SELFPAY ==
[2019-02-21 14:54] LABS: Anion Gap 7.5 mmol/L (3-11); BUN 27 mg/dL (7-18); CO2 29.5 mmol/L (21.0-32.0); CREATININE 0.98 mg/dL (0.70-1.30); Calcium 9.1 mg/dL (8.5-10.1); Chloride 105 mmol/L (98-107); Glucose 179 mg/dL (70-100); Potassium 4.1 mmol/L (3.5-5.1); Sodium 142 mmol/L (136-145)
[2019-02-21 14:58] LABS: Abs Immature Grans 0.01 k/cumm (0.0-0.09); Absolute Basophil Count 0.01 k/cumm (0.0-0.2); Absolute Eosinophil Count 0.08 k/cumm (0.0-0.7); Absolute Lymphocyte Count 0.88 k/cumm (1.2-3.4); Absolute Monocyte Count 0.28 k/cumm (0.11-0.7); Absolute Neutrophil Count 3.32 k/cumm (1.2-6.7); Basophils % 0.2; Eosinophils % 1.7; HCT 44.4 % (40.0-50.0); HGB 15.3 g/dL (13.5-17.5); Immature Grans % 0.2; Lymphocytes % 19.2; Mean Corp. HGB Concentration 34.5 g/dL (32.0-36.0); Mean Corpuscular Hemoglobin 32.2 pg (27.0-33.0); Mean Corpuscular Volume 93.5 fL (80-95); Mean Platelet Volume 9.8 fL (8.0-11.0); Monocytes % 6.1; Neutrophils % 72.6; Platelet Count 273 x1000/uL (130-400); RBC 4.75 m/cumm (4.50-6.00); RBC Distribution Width 13.6 % (11.8-14.1); White Blood Cell Count 4.58 k/cumm (4.4-10.8)
== END 2019-02-21 14:53 ==
LOC: LBN 14:33
PROVIDERS: PCP Family Medicine; Visit Provider Nurse Practitioner Adult Health
DX: E78.5 Hyperlipidemia, unspecified (principal); D51.8 Other vitamin B12 deficiency anemias; R63.4 Abnormal weight loss; R41.82 Altered mental status, unspecified
CPT/HCPCS: 80048; 85025

== ENCOUNTER 2019-03-13 21:17 | Outpatient (REF) | payer MEDICARE, MEDICAID, SELFPAY ==
[2019-03-13 21:42] LABS: Bilirubin Negative (Negative); Blood Trace-intact (Negative); Clarity Clear (Clear); Glucose Negative (Negative); Ketones Negative (Negative); Leukocyte Esterase Negative (Negative); Nitrite Negative (Negative); Urobilinogen 0.2 EU/dL (Up TO 0.2)
[2019-03-13 21:55] LABS: Bacteria Negative HPF (Negative); Crystals Few Amorphous HPF (Negative); Epithelial Cells Negative HPF (Negative); Mucus Trace (Negative); Other Cells Few Transitional (Negative); WBC 0-2 HPF (0-5)
[2019-03-13 21:56] LABS: C & S Indicated? C&S Done As Ordered
== END 2019-03-13 21:37 ==
LOC: NCHCN 21:17
PROVIDERS: PCP Family Medicine; Visit Provider Family Medicine
DX: R32 Unspecified urinary incontinence (principal); R62.7 Adult failure to thrive
CPT/HCPCS: 81003; 81015; 87086

== ENCOUNTER 2019-03-25 14:06 | Outpatient (CLI) | payer MEDICARE, MEDICAID, SELFPAY ==
--- NOTE | 2019-03-25 11:45 | DI.RAD_ITS ---
EXAM: XR FOOT RT COMPLETE INDICATION: FOOT PAIN AND SWELLING M79.671. COMPARISON: RIGHT FOOT COMPLETE from 10/27/2016 TECHNIQUE: 2D digital imaging was performed. FINDINGS: No acute fracture or dislocation is present. There are hammertoe deformities of the 2nd through 5th toes. Mild degenerative changes are seen at the 1st metatarsophalangeal joint. The bones appear ost eopenic. There does appear to be moderate soft tissue swelling around the metatarsophalangeal joints . IMPRESSION: No acute abnormality. Soft tissue swelling seen around the metatarsophalangeal joints.
--- NOTE | 2019-03-25 11:49 | DI.RAD_ITS ---
EXAM: XR ANKLE RT COMPLETE INDICATION: FOOT PAIN AND SWELLING M79.671. COMPARISON: No exams were available for comparison TECHNIQUE: 2D digital imaging was performed. FINDINGS: No acute fracture or dislocation is present. The articular surfaces are well maintained. Soft tissu es are unremarkable. IMPRESSION: No acute abnormality.
== END 2019-03-25 14:26 ==
PROVIDERS: PCP Family Medicine; Visit Provider Family Medicine
DX: M79.671 Pain in right foot (principal); M79.89 Other specified soft tissue disorders; M20.41 Other hammer toe(s) (acquired), right foot; M85.88 Other specified disorders of bone density and structure, other site
CPT/HCPCS: 73610; 73630

== ENCOUNTER 2019-04-18 12:51 | Emergency (ER) | payer MEDICARE, MEDICAID, SELFPAY ==
--- NOTE | 2019-04-18 14:12 | NUR.NOTE ---
Nursing Note: Patient has increased redness and mottling of both right and left feet per son.
[2019-04-18 14:19] LABS: Lactate 2.4 mmol/L (0.6-1.4)
[2019-04-18 14:21] LABS: Abs Immature Grans 0.07 k/cumm (0.0-0.09); Absolute Eosinophil Count 0.02 k/cumm (0.0-0.7); Absolute Lymphocyte Count 0.56 k/cumm (1.2-3.4); Absolute Monocyte Count 0.31 k/cumm (0.11-0.7); Absolute Neutrophil Count 9.65 k/cumm (1.2-6.7); Eosinophils % 0.2; HCT 40.2 % (40.0-50.0); HGB 13.4 g/dL (13.5-17.5); Immature Grans % 0.7; Lymphocytes % 5.3; Mean Corp. HGB Concentration 33.3 g/dL (32.0-36.0); Mean Corpuscular Hemoglobin 32.4 pg (27.0-33.0); Mean Corpuscular Volume 97.3 fL (80-95); Monocytes % 2.9; Neutrophils % 90.9; Platelet Count 212 x1000/uL (130-400); RBC 4.13 m/cumm (4.50-6.00); RBC Distribution Width 14.2 % (11.8-14.1); White Blood Cell Count 10.61 k/cumm (4.4-10.8)
[2019-04-18 14:30] LABS: PTT Activated 19.2 sec (21.0-31.4); Prothrombin Time 9.8 sec (9.3-11.0)
[2019-04-18 14:38] LABS: ALT 19 U/L (16-63); AST 19 U/L (15-37); Alkaline Phosphatase 94 U/L (46-116); Anion Gap 10.1 mmol/L (3-11); BUN 26 mg/dL (7-18); Bilirubin, Total 0.4 mg/dL (0.2-1.0); CO2 26.9 mmol/L (21.0-32.0); CREATININE 0.91 mg/dL (0.70-1.30); Calcium 8.4 mg/dL (8.5-10.1); Chloride 107 mmol/L (98-107); Glucose 169 mg/dL (74-106); Magnesium 1.8 mg/dL (1.8-2.4); Potassium 4.4 mmol/L (3.5-5.1); Sodium 144 mmol/L (136-145); Total Protein 5.9 g/dL (6.4-8.2); Troponin I < 0.05 ng/Ml (<0.06)
[2019-04-18] MEDS: Normal Saline 500 ML IV (14:47)
[2019-04-18] MEDS: Omnipaque 350 MG/ML 100 ML BTL IJ (15:07)
--- NOTE | 2019-04-18 15:13 | ED.GENADUL_ITS ---
Discharge Plan Disposition Patient Disposition: HOME Condition: Stable Discharge Details Chief Complaint: GenMedical Clinical Impression: Cellulitis of foot, Cool skin Primary Care Provider: Yazmin Urbina ED Provider: Esther Olsen Home Meds and New Rx's Prescriptions: New cephalexin [Keflex] 500 mg capsule 500 mg PO QID 7 Days Qty: 28 RF: 0 Continued carbidopa-levodopa [Sinemet CR] 1 EACH tablet extended release 1 tab-cap PO BID Qty: 90 RF: 5 ropinirole 1 MG tablet 1 mg PO DAILY RF: 0 trazodone 50 mg Tablet 25 mg PO HS Qty: 30 RF: 0 polyethylene glycol 3350 17 gram Powder In Packet 17 g PO DAILY PRN PRN (Reason: Constipation) Qty: 15 RF: 0 tramadol 50 mg Tablet 50 mg PO Q6H PRN PRNQty: 20 RF: 0 calcium carbonate [Calcium 500] 500 mg calcium (1,250 mg) tablet 500 mg PO BID Qty: 30 RF: 0 oxybutynin chloride 10 mg Tablet Extended Release 24hr 10 mg PO DAILY RF: 0 lorazepam [Ativan] 0.5 mg Tablet 0.5 mg PO DAILY PRNRF: 0 pravastatin 20 mg Tablet 20 mg PO DAILY RF: 0 acetaminophen 325 mg Tablet 650 mg PO Q6H PRN PRNRF: 0 Discharge Instructions Instructions: Cellulitis (ED) Additional Instructions: Take antibiotics until finished. Call the primary care doctor on Sunday to schedule a follow-up appointment for reevaluation. Return to the emergency department if you develop any worsening or new concerning symptoms. Discharge Data Discharge Physician: Esther Olsen Medical Decision Making 83-year-old male with a history of Parkinson's disease, dementia, GERD presents for bilateral mottled skin and coolness of feet bilaterally for the past few days. Patient seen by home health today who advised patient come to the ER for further evaluation. Skin on bilateral ankles down to toes appears mottled and cool to touch. Faintly palpable bilateral PT/DP pulses. Main concern would be for arterial occlusion. Will obtain screening labs and CT angio with runoff to evaluate bilateral lower extremities. CTA reviewed with radiology and appears patent down to ankles but with questionable high-grade stenosis from popliteals down to feet. Case discussed with [facility] vascular surgery who feels that patient symptoms not a vascular issue at this time as vessels appear patent. Discussed that differential diagnosis could also include vasculitis, infection, or microvascular disease. Reassessment of patient notes that right foot is erythematous and warm to touch with bounding right DP pulse. Concern would be for a possible local inflammation such as vasculitis. Will check a CRP and ESR. Will consult [facility] rheumatology. Discussed with [facility] rheumatology -state presentation does not appear consistent with a vasculitis as this is not been a consistent phenomenon and there is no obvious inflammation on the CT. Would recommend right foot x-ray to rule out tophi versus erosion. Agree with plan for ESR and CRP and to treat with antibiotics and to follow-up with PCP for further evaluation. ESR and CRP normal. Unable to obtain right foot x-ray due to patient movement. Son is declining waiting to give Ativan and resend for x-ray and would rather have patient follow-up with a primary care doctor. Discussed at length with son and patient that I am unclear of the exact etiology at this time but that infection versus inflammation versus other type of vasculitis could be a possibility. It does not appear to be an acute vascular issue so patient does not require acute intervention at this time. Will treat with antibiotics as his right foot appears red and swollen. 1 dose of Keflex given here as well as prescription. Advised to follow-up with the primary care doctor on Sunday for reevaluation and to return here at any time if worse. Medical Records Medical records reviewed: Yes I reviewed the patient's medical records. Imaging Data Radiologic Study: Radiologist's impression: CT ABD AORTA CTA W RUNOFF CLINICAL HISTORY: mottling/coolness of feet b/l TECHNIQUE: CT angiography of the abdomen pelvis was performed with additional lower extremity runoff protocol. Axial CT angiography was performed with multislice acquisition and multiplanar and/or 3D reconstructions. COMPARISON: CT ABDOMEN PELVIS WO from 12/30/2018 FINDINGS: The visualized lung bases are grossly clear. Liver, spleen and pancreas are unr emarkable except for motion artifact. Kidneys unremarkable in appearance bilaterally except for nonobstructing left upper pole renal calculus. No hydronephrosis or ureterolithiasis. No abdominal or pelvic adenopathy. No focal bowel pathology apart from diverticulosis. Abdominal aorta is of normal diameter. There is mild calcified atheromatous plaque of the abdominal aorta. The celiac trunk, SMA, GERI and renal arteries are unremarkable. Common internal and external iliac arteries bilaterally show slight calcified plaque and no significant stenosis. Superficial femoral arteries appear intact bilaterally. Metallic total knee joint prosthesis on the right obscures detail. There is significant motion artifact, which obscures detail in the legs. Popliteal arteries show mild atheromatous plaque bilaterally. Trifurcation appears intact bilaterally. There are multiple stenoses of the 3 vessels of the leg bilaterally with reconstitution of vessels to mid calf level bilaterally. IMPRESSION: No significant arterial stenosis of the abdomen or pelvis. No significant stenosis to the level of the popliteal arteries. Limited visualization of the arterial vessels of the leg bilaterally below the level of the trifurcation but numerous focal areas of high-grade stenosis appear to be present in all 3 vessels bilaterally. Lab Data Lab results reviewed: Yes I reviewed the patient's lab results. HPI General Mode of arrival: ambulatory . Date/Time Provider Initiated Documentation: 04/18/19 13:15 . Limitations to Documentation: no limitations . Information obtained by: patient . History of Present Illness 83 year old M presents to the emergency department with the chief complaint of cold, mottled feet b/l , and is localized to the lower extremity. Patient reports no radiation. Patient started experiencing this day(s) (2) and it has been constant. No relieving factors improve symptom(s), No exacerbating factors reported . Patient did receive the following treatments prior to arrival, none Related Data Home Medications Medication Instructions Recorded Confirmed carbidopa-levodopa [Sinemet CR] 1 tab-cap PO BID #90 tab-cap 10/08/13 04/18/19 ropinirole 1 mg PO DAILY 06/29/17 04/18/19 calcium carbonate [Calcium 500] 500 mg PO BID #30 tab 04/19/18 04/18/19 lorazepam [Ativan] 0.5 mg PO DAILY PRN 12/30/18 04/18/19 oxybutynin chloride 10 mg PO DAILY 12/30/18 04/18/19 pravastatin 20 mg PO DAILY 12/30/18 04/18/19 polyethylene glycol 3350 17 g PO DAILY PRN PRN #15 ea 01/06/19 04/18/19 tramadol 50 mg PO Q6H PRN PRN #20 tab 01/06/19 04/18/19 trazodone 25 mg PO HS #30 tab 01/06/19 04/18/19 acetaminophen 650 mg PO Q6H PRN PRN 02/05/19 04/18/19 cephalexin [Keflex] 500 mg PO QID 7 Days #28 cap 04/18/19 Previous Rx's Medication Instructions Recorded calcium carbonate [Calcium 500] 500 mg PO BID #30 tab 04/19/18 polyethylene glycol 3350 17 g PO DAILY PRN PRN #15 ea 01/06/19 tramadol 50 mg PO Q6H PRN PRN #20 tab 01/06/19 trazodone 25 mg PO HS #30 tab 01/06/19 cephalexin [Keflex] 500 mg PO QID 7 Days #28 cap 04/18/19 Allergies Allergy/AdvReac Type Severity Reaction Status Date / Time Sulfa (Sulfonamide AdvReac Mild GI/diarrhea Verified 04/18/19 14:13 Antibiotics) General Stated Complaint: GenMedical BANDAR: 3 Review of Systems All systems reviewed & are unremarkable except as noted in HPI and below Constitutional Constitutional: Reports as per HPI, Denies chills and Denies fever(s) Eyes Eyes: Denies blurry vision ENT Ears, Nose, Mouth, and Throat: Denies dizziness, Denies sore throat and Denies throat swelling Cardiovascular Cardiovascular: Denies chest pain and Denies dyspnea Respiratory Respiratory: Denies cough and Denies dyspnea Gastrointestinal Gastrointestinal: Denies abdominal pain, Denies diarrhea and Denies vomiting Genitourinary Genitourinary: Denies hematuria and Denies dysuria Musculoskeletal Musculoskeletal: Denies back pain and Denies numbness Integumentary/Breasts Skin/Breast: Denies lesions and Denies rash Neurologic Neurologic: Denies dizziness, Denies focal weakness and Denies numbness Allergic/Immunologic Allergic/Immunologic: Denies throat swelling [facility] Medical History Confusion and disorientation (Acute) Cystitis (Acute) Encounter for hospice care discussion (Acute) GERD (gastroesophageal reflux disease) (Chronic) Palliative care patient (Acute) Parkinson's disease dementia (Acute) Parkinsonism (Chronic) Prostate cancer (Chronic) Renal calculus, left (Chronic) TIA (transient ischemic attack) (Acute) Unintentional weight loss (Acute) Urinary retention (Acute) Surgical History History of appendectomy (Chronic) History of hernia repair (Chronic) inguinal hernia repair History of knee replacement (Chronic) right knee (Dr. Hernandez) S/P carpal tunnel release (Acute) S/P rotator cuff repair (Acute) 09/13/2015, Dr. Hernandez; Amandeep rotator cuff repair w/ excision of distal clavicle and biceps tenolysis Family History Son No problems noted. Social History Smoking/Tobacco Use Status: Former Tobacco Use Alcohol Intake: former Drug use: Never Substance use type: does not use Caregiver/Support person: Yes Household members: children Housing: house Number of Children: 1 Communication Needs: Hard of Hearing and Corrective Lenses Education Level: high school Do you need help understanding health information?: Always current occupation: retired What is your relationship status?: How often do you talk on the phone with friends or family?: never How often do you get together with friends or relatives?: three or more times per week Panel score (0-1 are the most socially isolated patients): 1 What type of physical activity do you participate in: none and wheelchair-bound Special rachel needs: No Seatbelt use: always Do you feel safe at home: Yes Do you feel safe in your relationship?: Yes Additional Social history: Lives with son who is his caregiver. earlier this year. Health has gone downhill since his 's . Exam Const General: cooperative, healthy appearing and no acute distress HENMT Head: normal to inspection Face and sinus: normal facial exam Eyes General: appearance normal, both eyes and all related structures EOM: EOM intact bilaterally Neck Neck: normal visual inspection and No submandibular swelling Lymphatic: no lymphadenopathy noted Chest Chest: normal inspection of the chest and no tenderness Resp Effort & Inspection: normal respiratory effort and able to speak in complete sentences Auscultation: clear to auscultation bilaterally Cardio Rate: regular rate Rhythm: regular rhythm GI Inspection: normal to inspection Palpation: soft, not firm, not rigid and nontender Auscultation: normal bowel sounds Skin General skin exam: no rashes or lesions noted Neuro General: alert, awake, oriented x3 and moves all extremities Cognition: normal cognition Sensory Exam: no sensory deficits noted Other: Arms and legs held in flexion and patient laying on his side. Able to move all extremities but with cogwheel rigidity. Extrem Other: Mottled skin bilateral distal lower extremities extending from ankles down to toes. No cyanosis noted. Faintly palpable PT/DP pulses bilaterally. Scattered superficial abrasions noted to left medial ankle. Psych Appearance: disheveled Speech and Movement: restless and other (Cogwheel movement consistent with Parkinson's.) Course Vital Signs Vital signs: Respiratory Effort Non-Labored 04/18/19 14:06 Lab/Test Results Lab/Test Results: Laboratory Tests Range/Units 04/18/19 04/18/19 04/18/19 14:01 14:01 14:01 WBC (4.4-10.8) k/cumm 10.61 RBC (4.50-6.00) m/cumm 4.13 L Hgb (13.5-17.5) g/dL 13.4 L Hct (40.0-50.0) % 40.2 MCV (80-95) fL 97.3 H MCH (27.0-33.0) pg 32.4 MCHC (32.0-36.0) g/dL 33.3 RDW (11.8-14.1) % 14.2 H Plt Count (130-400) x1000/uL 212 MPV (8.0-11.0) fL 9.0 Immature Gran % 0.7 Neutrophils % 90.9 Lymphocytes % 5.3 Monocytes % 2.9 Eosinophils % 0.2 Basophils % 0.0 Absolute Neutrophils (1.2-6.7) k/cumm 9.65 H Absolute Lymphocytes (1.2-3.4) k/cumm 0.56 L Absolute Monocytes (0.11-0.7) k/cumm 0.31 Absolute Eosinophils (0.0-0.7) k/cumm 0.02 Absolute Basophils (0.0-0.2) k/cumm 0.00 PT (9.3-11.0) sec INR (0.9-1.1) APTT (21.0-31.4) sec Sodium (136-145) mmol/L 144 Potassium (3.5-5.1) mmol/L 4.4 Chloride (98-107) mmol/L 107 Carbon Dioxide (21.0-32.0) mmol/L 26.9 Anion Gap (3-11) mmol/L 10.1 BUN (7-18) mg/dL 26 H Creatinine (0.70-1.30) mg/dL 0.91 Estimated GFR/1.73 m2 (mL/min/1.73m2) >= 60.00 Glucose (74-106) mg/dL 169 H Lactate (0.6-1.4) mmol/L 2.4 H* Calcium (8.5-10.1) mg/dL 8.4 L Magnesium (1.8-2.4) mg/dL 1.8 Total Bilirubin (0.2-1.0) mg/dL 0.4 AST (15-37) U/L 19 ALT (16-63) U/L 19 Alkaline Phosphatase (46-116) U/L 94 Troponin I (<0.06) ng/Ml < 0.05 Total Protein (6.4-8.2) g/dL 5.9 L Albumin (3.4-5.0) g/dL 3.0 L Range/Units 04/18/19 14:01 WBC (4.4-10.8) k/cumm RBC (4.50-6.00) m/cumm Hgb (13.5-17.5) g/dL Hct (40.0-50.0) % MCV (80-95) fL MCH (27.0-33.0) pg MCHC (32.0-36.0) g/dL RDW (11.8-14.1) % Plt Count (130-400) x1000/uL MPV (8.0-11.0) fL Immature Gran % Neutrophils % Lymphocytes % Monocytes % Eosinophils % Basophils % Absolute Neutrophils (1.2-6.7) k/cumm Absolute Lymphocytes (1.2-3.4) k/cumm Absolute Monocytes (0.11-0.7) k/cumm Absolute Eosinophils (0.0-0.7) k/cumm Absolute Basophils (0.0-0.2) k/cumm PT (9.3-11.0) sec 9.8 INR (0.9-1.1) 1.0 APTT (21.0-31.4) sec 19.2 L Sodium (136-145) mmol/L Potassium (3.5-5.1) mmol/L Chloride (98-107) mmol/L Carbon Dioxide (21.0-32.0) mmol/L Anion Gap (3-11) mmol/L BUN (7-18) mg/dL Creatinine (0.70-1.30) mg/dL Estimated GFR/1.73 m2 (mL/min/1.73m2) Glucose (74-106) mg/dL Lactate (0.6-1.4) mmol/L Calcium (8.5-10.1) mg/dL Magnesium (1.8-2.4) mg/dL Total Bilirubin (0.2-1.0) mg/dL AST (15-37) U/L ALT (16-63) U/L Alkaline Phosphatase (46-116) U/L Troponin I (<0.06) ng/Ml Total Protein (6.4-8.2) g/dL Albumin (3.4-5.0) g/dL
--- NOTE | 2019-04-18 15:19 | DI.CT_ITS ---
EXAM: CT ABD AORTA CTA W RUNOFF CLINICAL HISTORY: mottling/coolness of feet b/l TECHNIQUE: CT angiography of the abdomen pelvis was performed with additional lower extremity runoff protocol. Axial CT angiography was performed with multislice acquisition and multiplanar and/or 3D reconstructions. COMPARISON: CT ABDOMEN PELVIS WO from 12/30/2018 FINDINGS: The visualized lung bases are grossly clear. Liver, spleen and pancreas are unremarkable except for motion artifact. Kidneys unremarkable in appearance bilaterally except for nonobstructing left upper pole renal calculus. No hydronephrosis or ureterolithiasis. No abdominal or pelvic adenopathy. No focal bowel pathology apart from diverticulosis. Abdominal aorta is of normal diameter. There is mild calcified atheromatous plaque of the abdominal aorta. The celiac trunk, SMA, GERI and renal arteries are unremarkable. Common internal and external iliac arteries bilaterally show slight calcified plaque and no significant stenosis. Superficial femoral arteries appear intact bilaterally. Metallic total knee joint prosthesis on the right obscures detail. There is significant motion artif act, which obscures detail in the legs. Popliteal arteries show mild atheromatous plaque bilaterally . Trifurcation appears intact bilaterally. There are multiple stenoses of the 3 vessels of the leg bilaterally with reconstitution of vessels to mid calf level bilaterally. IMPRESSION: No significant arterial stenosis of the abdomen or pelvis. No significant stenosis to the level of the popliteal arteries. Limited visualization of the arterial vessels of the leg bilaterally below the level of the trifurcat ion but numerous focal areas of high-grade stenosis appear to be present in all 3 vessels bilaterally .
[2019-04-18] MEDS: Omnipaque 350 MG/ML 50 ML BTL IJ (15:25)
[2019-04-18 16:29] VITALS: BP 171/123; PULSE 100; RESP 16; TEMP 36.7; O2SAT 98
[2019-04-18] MEDS: LORazepam 1 MG TAB PO (16:41)
[2019-04-18 17:42] LABS: C-Reactive Protein < 0.05 mg/dL (0.0-0.3)
--- NOTE | 2019-04-18 17:55 | DI.RAD_ITS ---
EXAM: XR FOOT RT LIMITED INDICATION: R foot red, hot, assess for tophi, erosion. COMPARISON: XR FOOT RT COMPLETE from 03/25/2019 TECHNIQUE: 2D digital imaging was performed. FINDINGS: A single lateral view was obtained. The patient was unable to finish the examination. This is an in complete examination. The bones appear osteopenic. There are hammertoe deformities of the 2nd throu gh 5th toes. No other gross alignment abnormalities are identified. If there is continued concern, a complete right foot examination should be obtained.
[2019-04-18 18:04] LABS: ESR 5 mm/hr (1-20)
[2019-04-18] MEDS: Cephalexin 250 MG CAP 500 MG PO (19:06)
== END 2019-04-18 19:05 | disposition home or self-care (01) ==
PROVIDERS: Emergency Provider Physician Assistant; PCP Family Medicine
DX: R23.8 Other skin changes (principal); L03.115 Cellulitis of right lower limb; G31.83 Neurocognitive disorder with Lewy bodies; F02.81 Dementia in other diseases classified elsewhere, unspecified severity, with behavioral disturbance
CPT/HCPCS: 36415; 75635; 80053; 85652; 96360; 99285; 73620; 83605; 83735; 84484; 85025; 85610; 85730; 86140; J3490; Q9967

== ENCOUNTER 2019-05-28 19:02 | Emergency (ER) | payer MEDICARE, MEDICAID, SELFPAY ==
[2019-05-28 19:00] VITALS: BP 163/95; PULSE 88; RESP 16; TEMP 36.6; O2SAT 99
--- NOTE | 2019-05-28 19:27 | ED.GENADUL_ITS ---
Discharge Plan Disposition Patient Disposition: HOME Condition: Stable Discharge Details Chief Complaint: AMS/LOC Clinical Impression: Dementia, Fall at home Primary Care Provider: Yazmin Urbina ED Provider: Prakash Charlton Doyline Meds and New Rx's Prescriptions: Continued carbidopa-levodopa [Sinemet CR] 1 EACH tablet extended release 1 tab-cap PO BID Qty: 90 RF: 5 ropinirole 1 MG tablet 1 mg PO DAILY RF: 0 trazodone 50 mg Tablet 25 mg PO HS Qty: 30 RF: 0 polyethylene glycol 3350 17 gram Powder In Packet 17 g PO DAILY PRN PRN (Reason: Constipation) Qty: 15 RF: 0 tramadol 50 mg Tablet 50 mg PO Q6H PRN PRNQty: 20 RF: 0 calcium carbonate [Calcium 500] 500 mg calcium (1,250 mg) tablet 500 mg PO BID Qty: 30 RF: 0 oxybutynin chloride 10 mg Tablet Extended Release 24hr 10 mg PO DAILY RF: 0 lorazepam [Ativan] 0.5 mg Tablet 0.5 mg PO DAILY PRNRF: 0 pravastatin 20 mg Tablet 20 mg PO DAILY RF: 0 acetaminophen 325 mg Tablet 650 mg PO Q6H PRN PRNRF: 0 Discharge Instructions Additional Instructions: Please be sure to take medications as prescribed. All imaging studies and laboratory studies were unremarkable. No apparent injury from the fall. Follow-up with primary care next week for reevaluation. Return to emergency department for neurologic changes, fever, vomiting, other concerns or problems. Referrals: Yazmin Urbina [Primary Care Provider] - Discharge Data Discharge Date/Time-TO BE ENTERED AT DEPARTURE: 05/28/19 23:25 Medical Decision Making <Antwon Rollins DO - Last Filed: 05/30/19 12:22> This is a pleasant 83-year-old male with a past medical history of GERD, Parkinson's disease, previous mini strokes, prostate cancer with radiation therapy, who is cared for primarily by his son who presents today for evaluation of fall. When the son came and checked on the patient he had been on the ground, he is not been taking his Parkinson's medication for the last few days. Expected downtime to be around 2 to 3 hours. Due to the patient's dementia and Parkinson's, he is not a good historian. Uncertain as to whether or not he hit his head. He is not on blood thinners. No other complaints at this time. No other additional factors from history from son or patient. Physical exam demonstrates no evidence of significant trauma. Imaging orders have been placed, patient will be gently rehydrated. Will evaluate for significant electrolyte abnormalities. The case will be signed out to my colleague Dr. Charlton for reevaluation and assessment after imaging. Case was discussed with the son at bedside, son agrees with the plan at this time. <Prakash Charlton MD - Last Filed: 05/28/19 23:17> Patient was signed out to me pending imaging and laboratory studies. Patient has history of dementia. He was found on the floor today by his son. He was brought in for evaluation. Son feels that he is baseline and is always somewhat agitated. Please see Dr. Rollins's initial evaluation and plan. Patient required Ativan to obtain imaging studies and labs. EKG shows nothing acute. CT head and neck with nothing acute or traumatic. Chest x-ray unremarkable. Right hip and pelvis negative for fracture. Laboratory studies with normal white count. Mild anemia. No evidence of urine infection. Troponin and CK normal. No apparent significant injury related to the fall and no significant lab abnormalities or evidence of urinary tract infection requiring admission. Will be discharged home with son to follow-up with primary care next week as needed. Return to emergency department for neurologic changes, altered mental status, fever, vomiting, other concerns or problems. Lab Data Lab results reviewed: Yes I reviewed the patient's lab results. ECG Data Attestation: I personally reviewed and interpreted this ECG (s) as follows: Prior ECG tracings: available for review Interpretation: Sinus rhythm with PACs and PVC. Normal interval and axis. No ST changes. No change from previous. HPI <Antwon Rollins DO - Last Filed: 05/30/19 12:22> General Date/Time Provider Initiated Documentation: 05/28/19 19:04 . HPI Narrative: This is a pleasant 83-year-old male with a past medical history of GERD, Parkinson's disease, previous mini strokes, prostate cancer with radiation therapy, who is cared for primarily by his son who presents today for evaluation of fall. When the son came and checked on the patient he had been on the ground, he is not been taking his Parkinson's medication for the last few days. Expected downtime to be around 2 to 3 hours. Due to the patient's dementia and Parkinson's, he is not a good historian. Uncertain as to whether or not he hit his head. He is not on blood thinners. No other complaints at this time. No other additional factors from history from son or patient Related Data Home Medications Medication Instructions Recorded Confirmed carbidopa-levodopa [Sinemet CR] 1 tab-cap PO BID #90 tab-cap 10/08/13 04/18/19 ropinirole 1 mg PO DAILY 06/29/17 04/18/19 calcium carbonate [Calcium 500] 500 mg PO BID #30 tab 04/19/18 04/18/19 lorazepam [Ativan] 0.5 mg PO DAILY PRN 12/30/18 04/18/19 oxybutynin chloride 10 mg PO DAILY 12/30/18 04/18/19 pravastatin 20 mg PO DAILY 12/30/18 04/18/19 polyethylene glycol 3350 17 g PO DAILY PRN PRN #15 ea 01/06/19 04/18/19 tramadol 50 mg PO Q6H PRN PRN #20 tab 01/06/19 04/18/19 trazodone 25 mg PO HS #30 tab 01/06/19 04/18/19 acetaminophen 650 mg PO Q6H PRN PRN 02/05/19 04/18/19 Previous Rx's Medication Instructions Recorded calcium carbonate [Calcium 500] 500 mg PO BID #30 tab 04/19/18 polyethylene glycol 3350 17 g PO DAILY PRN PRN #15 ea 01/06/19 tramadol 50 mg PO Q6H PRN PRN #20 tab 01/06/19 trazodone 25 mg PO HS #30 tab 01/06/19 Allergies Allergy/AdvReac Type Severity Reaction Status Date / Time Sulfa (Sulfonamide AdvReac Mild GI/diarrhea Verified 05/28/19 19:53 Antibiotics) General BANDAR: 3 Review of Systems <Antwon Rollins DO - Last Filed: 05/30/19 12:22> All systems reviewed & are unremarkable except as noted in HPI and below PFSH <Antwon Rollins DO - Last Filed: 05/30/19 12:22> Social History Smoking/Tobacco Use Status: Former Tobacco Use Alcohol Intake: former Drug use: Never Substance use type: does not use Caregiver/Support person: Yes Household members: children Housing: house Number of Children: 1 Communication Needs: Hard of Hearing and Corrective Lenses Education Level: high school Do you need help understanding health information?: Always current occupation: retired What is your relationship status?: How often do you talk on the phone with friends or family?: never How often do you get together with friends or relatives?: three or more times per week Panel score (0-1 are the most socially isolated patients): 1 What type of physical activity do you participate in: none and wheelchair-bound Special rachel needs: No Seatbelt use: always Do you feel safe at home: Yes Do you feel safe in your relationship?: Yes Additional Social history: Lives with son who is his caregiver. earlier this year. Health has gone downhill since his 's . Exam <Antwon Rollins DO - Last Filed: 05/30/19 12:22> Narrative Exam Narrative: 1.Const: Well-nourished, Well-developed, appearing stated age 2.Eyes: PERRL, no conjunctival injection, and symmetrical lids. 3.ENT: Atraumatic external nose and ears. Moist MM. Neck: Symmetric, trachea midline, No thyromegaly. There is no evidence of raccoon eyes, gutierrez sign, CSF rhinorrhea, mastoid tenderness, cranial crepitus, hemotympanum, exophthalmos, or hyphema. Patient demonstrates intact dentition with no signs of tooth avulsion or fracture, no signs of jaw deformity, no evidence of a LeFort's fracture, with an intact palate, nose and orbital region. There is no evidence of a nasal septal hematoma. No proptosis. Jaw closes symmetrically. Airway is clear. 4.CVS: Regular rate and rhythm, Normal s1 and s2. No murmurs, carotid bruits, rubs, or gallops. Radial pulses 2+ bilaterally and symmetric. Dorsalis pedis pulses 2+ bilaterally and symmetric. 2+ capillary refill. No evidence of distant heart sounds. No extremity edema. No evidence of gross hemorrhage. 5.RESP: Airway clear, no obstructions. No abrasions or ecchymosis. Chest movement symmetric with respirations. No chest wall tenderness. Trachea midline. No crepitus. No step offs. No paradoxical movements. Lungs are clear to auscultation bilaterally. No rales, rhonchi, wheezing or stridor. Breath sound symmetric. No Sucking chest wounds. No clinical evidence of significant chest trauma. 6.GI: Soft, nondistended, nontender. Bowel tones normoactive. No masses or organomegaly. No ecchymosis or abrasions. No periumbilical ecchymosis or seatbelt sign. No flank or CVA tenderness. No clinical signs of significant trauma. No clinical evidence of significant abdominal trauma. 7.MSK: No gross deformities or discolorations or lesions. Tolerates full range of motion of extremities without tenderness. All compartments of upper and lower extremities are soft with no tenderness. Vascular exam demonstrates brisk capillary refill and intact pulses in all extremities. Pelvic exam demonstrates a stable pelvis, nontender to lateral compression and palpation of symphysis pubis.. No clinical evidence of significant musculoskeletal trauma. 8.Skin: Warm, Dry. No rashes or lesions. 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 Sensation grossly intact, no focal neurologic deficits. He does have a mild tremor in all of his extremities consistent with his previous Parkinson's 10.Psych: (AAO) x1, baseline for the patient. Appropriate mood and affect Sign Out <Antwon Rollins DO - Last Filed: 05/30/19 12:22> Sign Out Data: Sign Out Comment: Altered, fall, known Parkinson's, appears to be at mental status baseline, in imaging Last updated by Antwon Rollins DO at 05/28/19 20:48
[2019-05-28] MEDS: LORazepam 2 MG/ML VIAL 1 MG IVP (20:21)
--- NOTE | 2019-05-28 20:33 | NUR.NOTE ---
Nursing Note:1914: Pt removed c-collar. Fights staff when try to replace
--- NOTE | 2019-05-28 20:35 | DI.CT_ITS ---
EXAM: CT HEAD CERVICAL SPINE WO CLINICAL HISTORY: fall, hit head, thinnners? COMPARISON: CT HEAD WO from 01/02/2019 FINDINGS: CT examination of the cervical spine was performed utilizing multi slice acquisition and multiplanar reconstruction. There is fusion of the dens with the C1 arch anteriorly. There are severe hypertrop hic degenerative changes involving the facet joints and to a lesser degree the vertebral endplates th roughout the cervical region. No evidence of acute fracture or dislocation. Visualized lung apices are clear. No gross cervical mass or adenopathy. Tracheolaryngeal structures appear intact. Noncontrast cranial CT was performed. There is severe generalized cerebral atrophy and there are pat rosamaria areas of decreased attenuation in periventricular white matter consistent with microvascular isch emic change. No evidence of acute intracranial hemorrhage, mass effect, or midline shift. The orbit al and temporal structures appear intact. Visualized mastoid air cells and paranasal sinuses are heath ar. No calvarial fracture seen. IMPRESSION: No evidence of acute cervical spine injury. No evidence of acute intracranial injury.
--- NOTE | 2019-05-28 20:50 | DI.RAD_ITS ---
EXAM: XR HIP RT COMPLETE AP PELVIS CLINICAL HISTORY: fall, hit right hip TECHNIQUE: COMPARISON: XR pelvis AP from 11/29/2018 FINDINGS: Four views were obtained. There is no evidence of a fracture or dislocation. IMPRESSION:
--- NOTE | 2019-05-28 20:50 | DI.RAD_ITS ---
EXAM: XR CHEST 1V IN DI DEPT CLINICAL HISTORY: fall, hit chest TECHNIQUE: COMPARISON: XR CHEST 2V PA LATERAL from 02/05/2019 FINDINGS: Supine AP view of the chest was obtained. The heart is not enlarged. Lungs are grossly clear and we ll expanded. IMPRESSION: No evidence of acute process.
--- NOTE | 2019-05-28 21:01 | DI.VRAD_ITS ---
PROCEDURE INFORMATION: Exam: XR Right Hip with Pelvis when Performed Exam date and time: 05/28/2019 8:38 PM Age: 83 years old Clinical indication: Hip pain; Right hip; Additional info: Patient unable to hold still for exam, ativan given to patient. Best images obtained do to patient condition. TECHNIQUE: Imaging protocol: XR Right hip with pelvis when performed. Views: 2 or 3 views. COMPARISON: No relevant prior studies available. FINDINGS: Bones/joints: Unremarkable. No acute fracture. Soft tissues: Unremarkable. IMPRESSION: No acute findings. If clinical symptoms persist recommend followup film in 7-10 days. Dictated and Authenticated by: Sarita Ayers MD. Ordering:DOREEN Kapoor MD
--- NOTE | 2019-05-28 21:02 | DI.VRAD_ITS ---
PROCEDURE INFORMATION: Exam: XR Chest, 1 View Exam date and time: 05/28/2019 8:44 PM Age: 83 years old Clinical indication: Pain; Other: Fall; Additional info: Patient unable to hold still for exam, ativan given to patient. Best images obtained do to patient condition. TECHNIQUE: Imaging protocol: XR of the chest Views: 1 view. COMPARISON: CR XR CHEST 2V PA LATERAL 05/02/2019 11:15 FINDINGS: Lungs: Prominent pulmonary vasculature with redistribution to the apices. Pleural space: Unremarkable. No pleural effusion. No pneumothorax. Heart/Mediastinum: Cardiomegaly. Bones/joints: Unremarkable for patient's age. IMPRESSION: 1. No acute cardiopulmonary findings. 2. Cardiomegaly. Prominent pulmonary vasculature. Dictated and Authenticated by: Sarita Ayers MD. Ordering:DOREEN Kapoor MD
[2019-05-28 21:26] LABS: Abs Immature Grans 0.01 k/cumm (0.0-0.09); Absolute Basophil Count 0.02 k/cumm (0.0-0.2); Absolute Eosinophil Count 0.14 k/cumm (0.0-0.7); Absolute Lymphocyte Count 0.93 k/cumm (1.2-3.4); Absolute Monocyte Count 0.46 k/cumm (0.11-0.7); Absolute Neutrophil Count 4.19 k/cumm (1.2-6.7); Basophils % 0.3; Eosinophils % 2.4; HCT 36.9 % (40.0-50.0); HGB 12.2 g/dL (13.5-17.5); Immature Grans % 0.2 %; Lymphocytes % 16.2; Mean Corp. HGB Concentration 33.1 g/dL (32.0-36.0); Mean Corpuscular Hemoglobin 32.2 pg (27.0-33.0); Mean Corpuscular Volume 97.4 fL (80-95); Neutrophils % 72.9; Platelet Count 222 x1000/uL (130-400); RBC 3.79 m/cumm (4.50-6.00); RBC Distribution Width 13.7 % (11.8-14.1); White Blood Cell Count 5.75 k/cumm (4.4-10.8)
--- NOTE | 2019-05-28 21:34 | DI.VRAD_ITS ---
PROCEDURE INFORMATION: Exam: CT Head Without Contrast Exam date and time: 05/28/2019 8:29 PM Age: 83 years old Clinical indication: Injury or trauma; Initial encounter; Blunt trauma (contusions or hematomas); Consciousness not specified; Injury date: 05/28/19? ; Injury details: Fall, hit head, on blood thinners. Patient unable to give history; Additional info: Patient unable to hold still for exam, ativan given to patient. Best images obtained do to patient condition. TECHNIQUE: Imaging protocol: Computed tomography of the head without contrast. Radiation optimization: All CT scans at this facility use at least one of these dose optimization techniques: automated exposure control; mA and/or kV adjustment per patient size (includes targeted exams where dose is matched to clinical indication); or iterative reconstruction. COMPARISON: CT HEAD WO 03/31/2019 16:21 FINDINGS: Brain: Stable small vessel ischemic white matter changes of aging. No acute intracranial hemorrhage. No large territory infarct. Ventricles: Stable ventricular size. Bones/joints: Unremarkable. No acute fracture. Sinuses: Ethmoid sinus mucosal thickening. Left maxillary sinus disease. Mastoid air cells: Visualized mastoid air cells are well aerated. Soft tissues: Soft tissue swelling over the anterior face. Dental: The patient is edentulous. IMPRESSION: No acute intracranial abnormality. PROCEDURE INFORMATION: Exam: CT Cervical Spine Without Contrast Exam date and time: 05/28/2019 8:29 PM Age: 83 years old Clinical indication: Injury or trauma; Initial encounter; Blunt trauma (contusions or hematomas); Consciousness not specified; Injury date: 05/28/19? ; Injury details: Fall, hit head, on blood thinners. Patient unable to give history; Additional info: Patient unable to hold still for exam, ativan given to patient. Best images obtained do to patient condition. TECHNIQUE: Imaging protocol: Computed tomography images of the cervical spine without contrast. Radiation optimization: All CT scans at this facility use at least one of these dose optimization techniques: automated exposure control; mA and/or kV adjustment per patient size (includes targeted exams where dose is matched to clinical indication); or iterative reconstruction. COMPARISON: CT HEAD WO 03/31/2019 16:21 FINDINGS: Vertebrae: Mild anterolisthesis of C4 on C5. C2-C3: No fracture. No spinal stenosis. No neural foraminal narrowing. C3-C4: No fracture. No spinal stenosis. Facet arthropathy with bilateral neural foraminal stenosis. C4-C5: No fracture. No spinal stenosis. Facet arthropathy with bilateral neural foraminal stenosis. C5-C6: No fracture. No spinal stenosis. Facet arthropathy with asymmetric left neural foraminal stenosis. Disc space narrowing with degenerative changes of the endplates. C6-C7: No fracture. No spinal stenosis. Disc space narrowing with degenerative changes of the endplates. Facet arthropathy with bilateral neural foraminal stenosis more severe on the left than right. C7-T1: No fracture. No spinal stenosis. No neural foraminal narrowing. Soft tissues: Unremarkable. Lungs: Lung apices are normal. IMPRESSION: No acute findings. Dictated and Authenticated by: Sarita Ayers MD. Ordering:DOREEN Kapoor MD
[2019-05-28 21:39] LABS: INR 1.1 (0.9-1.1); PTT Activated 21.4 sec (21.0-31.4)
[2019-05-28 21:44] LABS: Creatine Kinase 82 U/L (39-308); Troponin I < 0.05 ng/Ml (<0.06)
[2019-05-28 22:41] LABS: Bilirubin Negative (Negative); Blood Negative (Negative); Clarity Clear (Clear); Glucose Negative (Negative); Ketones Negative (Negative); Leukocyte Esterase Negative (Negative); Nitrite Negative (Negative); Specific Gravity 1.025 (1.005-1.025); Urobilinogen 0.2 EU/dL (Up TO 0.2)
[2019-05-28 22:51] VITALS: BP 148/63; PULSE 54; RESP 16; O2SAT 96
[2019-05-28 23:26] VITALS: BP 148/63; PULSE 54; RESP 16; O2SAT 96
== END 2019-05-28 23:25 | disposition home or self-care (01) ==
PROVIDERS: Student in an Organized Health Care Education/Training Program; Emergency Provider Emergency Medicine; PCP Family Medicine
DX: R45.1 Restlessness and agitation (principal); G31.83 Neurocognitive disorder with Lewy bodies; F02.81 Dementia in other diseases classified elsewhere, unspecified severity, with behavioral disturbance; W07.XXXA Fall from chair, initial encounter
CPT/HCPCS: 36415; 51702; 82550; 93005; 96374; 99285; 70450; 71045; 72125; 73502; 81003; 84484; 85025; 85610; 85730; 93010; 99284; J2060